=== PATIENT | female | born 1950 | race Two or more races ===

== ENCOUNTER 2019-12-07 07:47 | Outpatient (REF) | payer MEDICARE, SELFPAY ==
[2019-12-07 08:51] LABS: Anion Gap 13 (12-20); Blood Urea Nitrogen 19 mg/dL (9-16); Calcium 9.1 mg/dL (8.4-10.2); Carbon Dioxide 27 mmol/L (22-29); Chloride 106 mmol/L (96-108); Estimated Glomerular Filt Rate 35; Potassium 4.2 mmol/l (3.3-5.1); Sodium 142 mmol/L (135-145)
[2019-12-07 08:56] LABS: Creatinine Urine 202.74 mg/dL; Microalbum/Creatinine Ratio Ur 46.8 ug/mg cr
== END 2019-12-07 07:48 | disposition home or self-care (01) ==
LOC: HO.LAB 07:47
PROVIDERS: PCP Internal Medicine; Referring Provider Nurse Practitioner Gerontology; Visit Provider Internal Medicine Hypertension Specialist
DX: E11.21 Type 2 diabetes mellitus with diabetic nephropathy (principal); E11.22 Type 2 diabetes mellitus with diabetic chronic kidney disease; N18.9 Chronic kidney disease, unspecified
CPT/HCPCS: 80051; 82043; 82310; 82565; 84520

== ENCOUNTER 2019-12-10 15:21 | Outpatient (REF) | payer MEDICARE, SELFPAY | END 2019-12-10 15:22 | disposition home or self-care (01) | LOC: HO.LAB 15:21 | PROVIDERS: PCP Internal Medicine; Visit Provider Internal Medicine | DX: Z20.828 Contact with and (suspected) exposure to other viral communicable diseases (principal) | CPT/HCPCS: 87635 ==

== ENCOUNTER → 2020-01-07 13:09 | Outpatient (BNVA) | payer MEDICARE, SELFPAY | PROVIDERS: PCP Internal Medicine; Visit Provider Nurse Practitioner Gerontology | DX: E11.22 Type 2 diabetes mellitus with diabetic chronic kidney disease (principal); I12.9 Hypertensive chronic kidney disease with stage 1 through stage 4 chronic kidney disease, or unspecified chronic kidney disease; N18.4 Chronic kidney disease, stage 4 (severe); Z79.4 Long term (current) use of insulin; E78.5 Hyperlipidemia, unspecified; E66.09 Other obesity due to excess calories; Z68.33 Body mass index [BMI] 33.0-33.9, adult | CPT/HCPCS: 82947; 99212 ==

== ENCOUNTER → 2020-02-23 10:41 | Outpatient (BNVA) | payer MEDICARE, SELFPAY | PROVIDERS: PCP Internal Medicine; Visit Provider Nurse Practitioner Gerontology | DX: E11.22 Type 2 diabetes mellitus with diabetic chronic kidney disease (principal); I12.9 Hypertensive chronic kidney disease with stage 1 through stage 4 chronic kidney disease, or unspecified chronic kidney disease; N18.4 Chronic kidney disease, stage 4 (severe); Z79.4 Long term (current) use of insulin; E78.5 Hyperlipidemia, unspecified; E66.09 Other obesity due to excess calories; Z68.32 Body mass index [BMI] 32.0-32.9, adult | CPT/HCPCS: 82947; 99212 ==

== ENCOUNTER → 2020-03-10 13:19 | Outpatient (BNVA) | payer MEDICARE, SELFPAY | PROVIDERS: PCP Internal Medicine; Referring Provider Internal Medicine; Visit Provider Nurse Practitioner Gerontology | DX: E11.22 Type 2 diabetes mellitus with diabetic chronic kidney disease (principal); I12.9 Hypertensive chronic kidney disease with stage 1 through stage 4 chronic kidney disease, or unspecified chronic kidney disease; N18.4 Chronic kidney disease, stage 4 (severe); Z79.4 Long term (current) use of insulin; E78.5 Hyperlipidemia, unspecified; E66.09 Other obesity due to excess calories; Z68.33 Body mass index [BMI] 33.0-33.9, adult | CPT/HCPCS: Q3014 ==

== ENCOUNTER 2020-03-31 10:23 | Outpatient (REF) | payer MEDICARE, MEDICAID, SELFPAY ==
[2020-04-04 04:35] LABS: SARS COV2 IgG Negative (Negative)
== END 2020-03-31 10:24 | disposition home or self-care (01) ==
LOC: HO.LAB 10:23
PROVIDERS: PCP Internal Medicine; Visit Provider Internal Medicine
DX: Z01.84 Encounter for antibody response examination (principal)
CPT/HCPCS: 36415; 86769

== ENCOUNTER 2020-05-30 07:33 | Outpatient (REF) | payer MEDICARE, MEDICAID, SELFPAY ==
[2020-05-30 08:17] LABS: MANUAL DIFF FLAG NO
[2020-05-30 08:24] LABS: Basophils Percent Auto 0.5 % (0-2); Eosinophils Absolute Auto 0.2 X10*3/uL (0.0-0.4); Eosinophils Percent Auto 2.6 % (0-4); Hematocrit 33.8 % (37-47); Hemoglobin 10.7 g/dl (12.0-16.0); Imm Gran Abs Auto 0.01 X10*3/uL (0.00-0.03); Imm Gran Pct Auto 0.2 % (0.0-0.4); Lymphocytes Absolute Auto 2.6 X10*3/uL (1.2-4.9); Lymphocytes Percent Auto 42.5 % (20-40); Mean Corpuscular HGB Conc 31.7 g/dl (31.0-35.0); Mean Corpuscular Hemoglobin 28.1 pg (27.0-33.0); Mean Corpuscular Volume 88.7 fL (80-98); Mean Platelet Volume 9.9 fL (9.4-12.3); Monocytes Absolute Auto 0.8 X10*3/uL (0.1-1.2); Monocytes Percent Auto 12.3 % (2-11); Neutrophils Absolute Auto 2.6 X10*3/uL (2.0-8.3); Neutrophils Percent Auto 41.9 % (45-73); Platelet Count 225 X10*3/uL (160-400); Red Blood Count 3.81 X10*6/uL (4.20-5.50); Red Cell Distribution Width 13.1 % (11.0-16.0); White Blood Count 6.1 X10*3/uL (4.8-10.8)
[2020-05-30 08:36] LABS: Glucose Urine UA NEG (NEG); Leukocyte Esterase Urine NEG (NEG); Nitrite Urine NEG (NEG); PH 6.5 (5.0-8.0); Specific Gravity - Urine 1.025 (1.005-1.025); Urine Blood TRACE (NEG); Urine Ketones NEG (NEG); Urine Protein 1+ MG/DL (NEG-TRACE)
[2020-05-30 08:39] LABS: Appearance Urine CLEAR; Color Urine YELLOW
[2020-05-30 09:07] LABS: Anion Gap 11 (12-20); Blood Urea Nitrogen 17 mg/dL (9-16); Calcium 8.9 mg/dL (8.4-10.2); Carbon Dioxide 27 mmol/L (22-29); Chloride 107 mmol/L (96-108); Estimated Glomerular Filt Rate 28; Potassium 4.5 mmol/L (3.3-5.1); Sodium 140 mmol/L (135-145)
[2020-05-30 09:10] LABS: Alanine Aminotransferase 23 U/L (0-31); Alkaline Phosphatase 119 U/L (39-117); Anion Gap 10 (12-20); Aspartate Amino Transferase 34 U/L (5-31); Bilirubin Total 0.4 mg/dL (0.0-1.0); Blood Urea Nitrogen 17 mg/dL (9-16); Calcium 8.9 mg/dL (8.4-10.2); Carbon Dioxide 27 mmol/L (22-29); Chloride 108 mmol/L (96-108); Cholesterol 109 mg/dL; Estimated Glomerular Filt Rate 26; Glucose Fasting 196 mg/dL (60-99); HDL Cholesterol 45 mg/dL; LDL Cholesterol Calculated 31 mg/dl; Potassium 4.6 mmol/L (3.3-5.1); Sodium 140 mmol/L (135-145); Total Protein 7.3 g/dL (6.5-8.0); Triglycerides 167 mg/dL
[2020-05-30 09:11] LABS: Creatinine Urine 126.38 mg/dL; Protein/Creatinine Ratio, Ur 0.44 (<0.2); Total Protein Urine Random 56 mg/dL (<12)
[2020-05-30 09:12] LABS: Creatinine Urine 124.35 mg/dL; Microalbum/Creatinine Ratio Ur 77.2 ug/mg cr
[2020-05-30 09:36] LABS: Bacteria Urine TRACE /LPF; Mucus Urine 1+ /LPF; Squamous Epithelial Cell Urine 2+ /LPF; WBC Urine 0-2 /HPF (0-4)
== END 2020-05-30 07:34 | disposition home or self-care (01) ==
LOC: HO.LAB 07:33
PROVIDERS: Absent Provider Internal Medicine Hypertension Specialist; PCP Internal Medicine; Visit Provider Internal Medicine
DX: E11.22 Type 2 diabetes mellitus with diabetic chronic kidney disease (principal); E11.21 Type 2 diabetes mellitus with diabetic nephropathy; N18.4 Chronic kidney disease, stage 4 (severe); N17.0 Acute kidney failure with tubular necrosis; E78.5 Hyperlipidemia, unspecified; D64.9 Anemia, unspecified; J30.9 Allergic rhinitis, unspecified; E78.00 Pure hypercholesterolemia, unspecified; R80.9 Proteinuria, unspecified; M19.90 Unspecified osteoarthritis, unspecified site; E55.9 Vitamin D deficiency, unspecified; K21.9 Gastro-esophageal reflux disease without esophagitis; Z79.4 Long term (current) use of insulin
CPT/HCPCS: 36415; 80051; 80053; 80061; 81001; 82043; 82310; 82565; 84156; 84520; 85025

== ENCOUNTER → 2020-06-03 08:57 | Outpatient (BNVA) | payer MEDICARE, MEDICAID, SELFPAY | PROVIDERS: PCP Internal Medicine; Visit Provider Nurse Practitioner Gerontology | DX: E11.22 Type 2 diabetes mellitus with diabetic chronic kidney disease (principal); I12.9 Hypertensive chronic kidney disease with stage 1 through stage 4 chronic kidney disease, or unspecified chronic kidney disease; N18.4 Chronic kidney disease, stage 4 (severe); Z79.4 Long term (current) use of insulin; E78.5 Hyperlipidemia, unspecified; E66.09 Other obesity due to excess calories; Z68.33 Body mass index [BMI] 33.0-33.9, adult | CPT/HCPCS: 82947; 99212 ==

== ENCOUNTER 2020-06-28 08:29 | Outpatient (REF) | payer MEDICARE, MEDICAID, SELFPAY ==
--- NOTE | ~2020-06-28 | MM_ITS ---
EXAMINATION: MM SCREENING DIGITAL BREAST TOMOSYNTHESIS, BILATERAL CLINICAL INFORMATION: Screening. Asymptomatic. COVID vaccine both doses left arm, most recent 05/31/2020. The lifetime risk of breast cancer based on the Tyrer-Cuzick Model is 4%. COMPARISON: Mammography: 02/04/2019, 01/29/2018, 01/08/2017 TECHNIQUE: Digital breast tomosynthesis is performed in both the craniocaudal and mediolateral oblique views along with computer-aided detection (CAD). Synthesized 2D images are generated from the tomosynthesis. FINDINGS: There are scattered areas of fibroglandular density (ACR BI-RADS breast composition Category b). The breast parenchymal pattern is unremarkable. There is no developing density or interval mass or architectural abnormality. No duct ectasia. The skin contours are smooth. There is no coarsening of the Mahesh's ligaments. The left MLO view shows 2 prominent left axillary nodes, increased from prior exams, likely reactive from COVID vaccination. Patient will be recalled in 4-8 weeks for follow-up imaging. MM/MM tomosynthesis screening BI IMPRESSION: 1. Left: 2 enlarged left axillary nodes, possibly reactive from recent vaccination. 2. Right: No mammographic evidence of malignancy. ASSESSMENT: BI-RADS 0: Incomplete - Need Additional Imaging Evaluation RECOMMENDATION: 1. Additional views of the left breast in 4-8 weeks (MLO). 2. Targeted ultrasound if warranted after review of the additional views. 3. Radiology department staff will contact the patient for additional imaging. This patient's information was entered into a reminder system with a target due date for their next mammogram.
== END 2020-06-28 08:30 | disposition home or self-care (01) ==
LOC: HO.MAMMO 08:29
PROVIDERS: Visit Provider Internal Medicine
DX: Z12.31 Encounter for screening mammogram for malignant neoplasm of breast (principal)
CPT/HCPCS: 77063; 77067

== ENCOUNTER 2020-08-09 12:18 | Outpatient (REF) | payer MEDICARE, MEDICAID, SELFPAY ==
--- NOTE | ~2020-08-09 | MM_ITS ---
EXAMINATION: MM DIAGNOSTIC DIGITAL BREAST TOMOSYNTHESIS, LEFT US DIAGNOSTIC ULTRASOUND BREAST, LEFT CLINICAL INFORMATION: Recall from screening for prominent left axillary nodes, likely reactive change from recent COVID vaccination (05/31/2020). COMPARISON: Mammography: 06/28/2020, 02/04/2019, 01/29/2018 TECHNIQUE: Digital breast tomosynthesis is performed. 2D images are generated from the tomosynthesis. The following views are obtained: MLO Ultrasound left axilla is performed using grayscale imaging and color Doppler without and with harmonics. FINDINGS: The breasts are almost entirely fatty (ACR BI-RADS breast composition Category a). The left axillary nodes are slightly decreased in size since the recent screening exam. Ultrasound demonstrates 2 axillary nodes with normal nicki architecture and normal color flow pattern. Cortical thickness is within limits of normal. No contours are smooth. No cystic changes or spiculation. Results are discussed with the patient at time of visit. Patient notes left axillary fullness within base of the recent vaccination. The mammographic and ultrasound findings are consistent with recent reactive changes from the fact summation. No suspicious lymphadenopathy. MM/MM tomosynthesis added views L IMPRESSION: Left axillary nodes decreased since recent screening. Normal ultrasound architecture. No suspicious lymphadenopathy. ASSESSMENT: BI-RADS 2: Benign RECOMMENDATION: Routine annual mammography screening. This patient's information was entered into a reminder system with a target due date for their next mammogram.
== END 2020-08-09 12:19 | disposition home or self-care (01) ==
LOC: HO.MAMMO 12:18
PROVIDERS: Visit Provider Internal Medicine
DX: R59.9 Enlarged lymph nodes, unspecified (principal)
CPT/HCPCS: 76642; 77061; 77065

== ENCOUNTER → 2020-09-02 08:54 | Outpatient (BNVA) | payer MEDICARE, MEDICAID, SELFPAY | PROVIDERS: PCP Internal Medicine; Visit Provider Nurse Practitioner Gerontology | DX: E11.22 Type 2 diabetes mellitus with diabetic chronic kidney disease (principal); I12.9 Hypertensive chronic kidney disease with stage 1 through stage 4 chronic kidney disease, or unspecified chronic kidney disease; N18.4 Chronic kidney disease, stage 4 (severe); E78.5 Hyperlipidemia, unspecified; E66.09 Other obesity due to excess calories; Z79.4 Long term (current) use of insulin; Z68.33 Body mass index [BMI] 33.0-33.9, adult | CPT/HCPCS: 82947; 83036; 99212 ==

== ENCOUNTER 2020-11-17 07:32 | Outpatient (REF) | payer MEDICARE, MEDICAID, SELFPAY ==
[2020-11-17 08:11] LABS: MANUAL DIFF FLAG NO
[2020-11-17 08:21] LABS: Basophils Percent Auto 0.5 % (0-2); Eosinophils Absolute Auto 0.2 X10*3/uL (0.0-0.4); Eosinophils Percent Auto 3.5 % (0-4); Hematocrit 33.4 % (37-47); Hemoglobin 10.4 g/dl (12.0-16.0); Imm Gran Abs Auto 0.01 X10*3/uL (0.00-0.03); Imm Gran Pct Auto 0.2 % (0.0-0.4); Lymphocytes Absolute Auto 2.4 X10*3/uL (1.2-4.9); Lymphocytes Percent Auto 41.5 % (20-40); Mean Corpuscular HGB Conc 31.1 g/dl (31.0-35.0); Mean Corpuscular Hemoglobin 27.9 pg (27.0-33.0); Mean Corpuscular Volume 89.5 fL (80-98); Mean Platelet Volume 10.5 fL (9.4-12.3); Monocytes Absolute Auto 0.6 X10*3/uL (0.1-1.2); Neutrophils Absolute Auto 2.5 X10*3/uL (2.0-8.3); Neutrophils Percent Auto 43.3 % (45-73); Platelet Count 207 X10*3/uL (160-400); Red Blood Count 3.73 X10*6/uL (4.20-5.50); Red Cell Distribution Width 13.8 % (11.0-16.0); White Blood Count 5.7 X10*3/uL (4.8-10.8)
[2020-11-17 08:37] LABS: Creatinine Urine 190.86 mg/dL; Microalbum/Creatinine Ratio Ur 59.2 ug/mg cr
[2020-11-17 08:44] LABS: Alanine Aminotransferase 23 U/L (0-31); Albumin Level 4.1 g/dL (3.5-5.0); Alkaline Phosphatase 94 U/L (39-117); Anion Gap 12 (12-20); Aspartate Amino Transferase 62 U/L (5-31); Bilirubin Total 0.6 mg/dL (0.0-1.0); Blood Urea Nitrogen 17 mg/dL (9-16); Calcium 9.3 mg/dL (8.4-10.2); Carbon Dioxide 24 mmol/L (22-29); Chloride 108 mmol/L (96-108); Cholesterol 103 mg/dL; Estimated Glomerular Filt Rate 26; Glucose Fasting 138 mg/dL (60-99); HDL Cholesterol 38 mg/dL; LDL Cholesterol Calculated 37 mg/dl; Potassium 4.3 mmol/L (3.3-5.1); Sodium 140 mmol/L (135-145); Total Protein 7.5 g/dL (6.5-8.0); Triglycerides 140 mg/dL
== END 2020-11-17 07:33 | disposition home or self-care (01) ==
LOC: HO.LAB 07:32
PROVIDERS: Absent Provider Internal Medicine Hypertension Specialist; PCP Internal Medicine; Visit Provider Internal Medicine
DX: N18.4 Chronic kidney disease, stage 4 (severe) (principal); E11.22 Type 2 diabetes mellitus with diabetic chronic kidney disease; E78.5 Hyperlipidemia, unspecified; Z79.4 Long term (current) use of insulin
CPT/HCPCS: 36415; 80053; 80061; 82043; 85025

== ENCOUNTER 2020-11-21 09:04 | Outpatient (REF) | payer MEDICARE, SELFPAY ==
--- NOTE | ~2020-11-21 | XR_ITS ---
EXAMINATION: XR SHOULDER, RIGHT CLINICAL INFORMATION: Pain. COMPARISON: Radiograph of the right shoulder dated from 06/17/2012. TECHNIQUE: Four views of the right shoulder. FINDINGS: No acute fractures or malalignment. Mild osteoarthritis of the glenohumeral joint and acromioclavicular joint. Chronic deformity in the proximal aspect of the humeral shaft, lateral surface. Visualized clavicle and ribs are unremarkable. Normal appearance of the soft tissues. XR/XR shoulder RT min 2V IMPRESSION: No acute fractures or malalignment. Degenerative osteoarthritis of the glenohumeral and acromioclavicular joints.
== END 2020-11-21 09:05 | disposition home or self-care (01) ==
LOC: HO.XRAY 09:04
PROVIDERS: PCP Internal Medicine; Visit Provider Internal Medicine
DX: M25.511 Pain in right shoulder (principal)
CPT/HCPCS: 73030

== ENCOUNTER → 2020-12-26 12:29 | Outpatient (BNVA) | payer MEDICARE, SELFPAY | PROVIDERS: PCP Internal Medicine; Visit Provider Nurse Practitioner Gerontology | DX: E11.22 Type 2 diabetes mellitus with diabetic chronic kidney disease (principal); I12.9 Hypertensive chronic kidney disease with stage 1 through stage 4 chronic kidney disease, or unspecified chronic kidney disease; N18.4 Chronic kidney disease, stage 4 (severe); E78.5 Hyperlipidemia, unspecified; E66.09 Other obesity due to excess calories; Z79.4 Long term (current) use of insulin; Z68.33 Body mass index [BMI] 33.0-33.9, adult | CPT/HCPCS: 82947; 83036; 99212 ==

== ENCOUNTER 2021-03-23 07:53 | Outpatient (REF) | payer MEDICARE, SELFPAY ==
[2021-03-23 08:13] LABS: MANUAL DIFF FLAG NO
[2021-03-23 08:23] LABS: Basophils Percent Auto 0.5 % (0-2); Eosinophils Absolute Auto 0.2 X10*3/uL (0.0-0.4); Eosinophils Percent Auto 2.7 % (0-4); Hematocrit 34.3 % (37.0-47.0); Hemoglobin 10.9 g/dl (12.0-16.0); Imm Gran Abs Auto 0.01 X10*3/uL (0.00-0.03); Imm Gran Pct Auto 0.2 % (0.0-0.4); Lymphocytes Absolute Auto 2.8 X10*3/uL (1.2-4.9); Lymphocytes Percent Auto 47.5 % (20-40); Mean Corpuscular HGB Conc 31.8 g/dl (31.0-35.0); Mean Corpuscular Hemoglobin 28.2 pg (27.0-33.0); Mean Corpuscular Volume 88.6 fL (80.0-98.0); Mean Platelet Volume 10.1 fL (9.4-12.3); Monocytes Absolute Auto 0.6 X10*3/uL (0.1-1.2); Monocytes Percent Auto 10.6 % (2-11); Neutrophils Absolute Auto 2.2 x10*3/uL (2.0-8.3); Neutrophils Percent Auto 38.5 % (45-73); Platelet Count 221 X10*3/uL (160-400); Red Blood Count 3.87 X10*6/uL (4.20-5.50); Red Cell Distribution Width 13.4 % (11.0-16.0); White Blood Count 5.8 X10*3/uL (4.8-10.8)
[2021-03-23 08:43] LABS: Alanine Aminotransferase 30 U/L (0-31); Albumin Level 4.1 g/dL (3.5-5.0); Alkaline Phosphatase 104 U/L (39-117); Anion Gap 13 (12-20); Aspartate Amino Transferase 54 U/L (5-31); Bilirubin Total 0.6 mg/dL (0.0-1.0); Blood Urea Nitrogen 16 mg/dL (9-16); Calcium 9.6 mg/dL (8.4-10.2); Carbon Dioxide 25 mmol/L (22-29); Chloride 106 mmol/L (96-108); Cholesterol 112 mg/dL; Estimated Glomerular Filt Rate 30; Glucose Fasting 146 mg/dL (60-99); HDL Cholesterol 43 mg/dL; LDL Cholesterol Calculated 44 mg/dl; Potassium 4.3 mmol/L (3.3-5.1); Sodium 140 mmol/L (135-145); Total Protein 7.7 g/dL (6.5-8.0); Triglycerides 129 mg/dL
[2021-03-23 08:45] LABS: Iron 53 mcg/dL (30-160); Percent Iron Saturation 13 % (15-50); Total Iron Binding Capacity 416 mcg/dL (228-428); Unsaturated Iron Binding 363 ug/dL
[2021-03-23 09:07] LABS: Creatinine Urine 218.56 mg/dL; Microalbum/Creatinine Ratio Ur 41.6 ug/mg cr
[2021-03-24 14:07] LABS: Calcium (PTHI) 9.6 mg/dL (8.6-10.4); PTHI 95 pg/mL (14-64)
[2021-03-28 17:07] LABS: Vitamin D 25-OH, D2 <4 ng/mL; Vitamin D 25-OH, D3 13 ng/mL; Vitamin D 25-OH, Total 13 ng/mL (30-100)
== END 2021-03-23 07:54 | disposition home or self-care (01) ==
LOC: HO.LAB 07:53
PROVIDERS: Absent Provider Internal Medicine; PCP Internal Medicine; Visit Provider Internal Medicine Hypertension Specialist
DX: E78.5 Hyperlipidemia, unspecified (principal); E55.9 Vitamin D deficiency, unspecified; Z79.4 Long term (current) use of insulin; N18.4 Chronic kidney disease, stage 4 (severe); E11.22 Type 2 diabetes mellitus with diabetic chronic kidney disease
CPT/HCPCS: 36415; 80053; 80061; 82043; 82306; 83540; 83970; 85025

== ENCOUNTER → 2021-04-24 13:15 | Outpatient (BNVA) | payer MEDICARE, SELFPAY | PROVIDERS: PCP Internal Medicine; Visit Provider Nurse Practitioner Gerontology | DX: E11.22 Type 2 diabetes mellitus with diabetic chronic kidney disease (principal); I12.9 Hypertensive chronic kidney disease with stage 1 through stage 4 chronic kidney disease, or unspecified chronic kidney disease; N18.32 Chronic kidney disease, stage 3b; Z79.4 Long term (current) use of insulin; E78.5 Hyperlipidemia, unspecified; E66.09 Other obesity due to excess calories; Z68.32 Body mass index [BMI] 32.0-32.9, adult | CPT/HCPCS: 82947; 83036; 99212 ==

== ENCOUNTER → 2021-07-18 12:54 | Outpatient (BNVA) | payer MEDICARE, SELFPAY | PROVIDERS: PCP Internal Medicine; Visit Provider Nurse Practitioner Gerontology | DX: E11.22 Type 2 diabetes mellitus with diabetic chronic kidney disease (principal); I12.9 Hypertensive chronic kidney disease with stage 1 through stage 4 chronic kidney disease, or unspecified chronic kidney disease; N18.32 Chronic kidney disease, stage 3b; E78.5 Hyperlipidemia, unspecified; E66.09 Other obesity due to excess calories; Z79.4 Long term (current) use of insulin; Z68.31 Body mass index [BMI] 31.0-31.9, adult | CPT/HCPCS: 82947; 83036; 99212 ==

== ENCOUNTER 2021-08-02 07:17 | Outpatient (REF) | payer MEDICARE, SELFPAY ==
[2021-08-02 07:35] LABS: MANUAL DIFF FLAG NO
[2021-08-02 07:43] LABS: Basophils Percent Auto 0.3 % (0-2); Eosinophils Absolute Auto 0.2 X10*3/uL (0.0-0.4); Eosinophils Percent Auto 2.5 % (0-4); Hematocrit 31.9 % (37.0-47.0); Hemoglobin 10.2 g/dl (12.0-16.0); Imm Gran Abs Auto 0.01 X10*3/uL (0.00-0.03); Imm Gran Pct Auto 0.2 % (0.0-0.4); Lymphocytes Absolute Auto 2.9 X10*3/uL (1.2-4.9); Lymphocytes Percent Auto 45.3 % (20-40); Mean Corpuscular Hemoglobin 28.3 pg (27.0-33.0); Mean Corpuscular Volume 88.6 fL (80.0-98.0); Mean Platelet Volume 9.6 fL (9.4-12.3); Monocytes Absolute Auto 0.7 X10*3/uL (0.1-1.2); Monocytes Percent Auto 10.2 % (2-11); Neutrophils Absolute Auto 2.7 x10*3/uL (2.0-8.3); Neutrophils Percent Auto 41.5 % (45-73); Platelet Count 220 X10*3/uL (160-400); Red Cell Distribution Width 13.4 % (11.0-16.0); White Blood Count 6.4 X10*3/uL (4.8-10.8)
[2021-08-02 07:55] LABS: Estimated Average Glucose 192 mg/dL; Hemoglobin A1c % 8.3 %
[2021-08-02 08:11] LABS: Alanine Aminotransferase 23 U/L (0-31); Alkaline Phosphatase 88 U/L (39-117); Anion Gap 11 (12-20); Aspartate Amino Transferase 38 U/L (5-31); Bilirubin Total 0.6 mg/dL (0.0-1.0); Blood Urea Nitrogen 21 mg/dL (9-16); Calcium 9.2 mg/dL (8.4-10.2); Carbon Dioxide 26 mmol/L (22-29); Chloride 109 mmol/L (96-108); Cholesterol 101 mg/dL; Estimated Glomerular Filt Rate 28; Glucose Fasting 154 mg/dL (60-99); HDL Cholesterol 40 mg/dL; Iron 58 mcg/dL (30-160); LDL Cholesterol Calculated 35 mg/dl; Percent Iron Saturation 14 % (15-50); Potassium 4.5 mmol/L (3.3-5.1); Sodium 141 mmol/L (135-145); Total Iron Binding Capacity 414 mcg/dL (228-428); Total Protein 7.4 g/dL (6.5-8.0); Triglycerides 133 mg/dL; Unsaturated Iron Binding 356 ug/dL
[2021-08-02 10:11] LABS: Creatinine Urine 300.29 mg/dL; Microalbum/Creatinine Ratio Ur 25.3 ug/mg cr
[2021-08-07 13:17] LABS: Vitamin D 25-OH, D2 65 ng/mL; Vitamin D 25-OH, D3 6 ng/mL; Vitamin D 25-OH, Total 71 ng/mL (30-100)
== END 2021-08-02 07:18 | disposition home or self-care (01) ==
LOC: HO.LAB 07:17
PROVIDERS: PCP Internal Medicine; Visit Provider Internal Medicine
DX: E11.22 Type 2 diabetes mellitus with diabetic chronic kidney disease (principal); E11.40 Type 2 diabetes mellitus with diabetic neuropathy, unspecified; N18.4 Chronic kidney disease, stage 4 (severe); E78.5 Hyperlipidemia, unspecified; E55.9 Vitamin D deficiency, unspecified; D64.9 Anemia, unspecified; Z79.4 Long term (current) use of insulin
CPT/HCPCS: 36415; 80053; 80061; 82043; 82306; 83036; 83540; 85025

== ENCOUNTER 2021-08-09 12:13 | Outpatient (REF) | payer MEDICARE, SELFPAY ==
--- NOTE | ~2021-08-09 | MM_ITS ---
EXAMINATION: MM SCREENING DIGITAL BREAST TOMOSYNTHESIS, BILATERAL CLINICAL INFORMATION: Screening. Asymptomatic. The lifetime risk of breast cancer based on the Tyrer-Cuzick Model is 4%. COMPARISON: Mammography: 08/09/2020, 06/28/2020, 02/04/2019; left axillary ultrasound 08/09/2020. TECHNIQUE: Digital breast tomosynthesis is performed in both the craniocaudal and mediolateral oblique views along with computer-aided detection (CAD). Synthesized 2D images are generated from the tomosynthesis. FINDINGS: There are scattered areas of fibroglandular density (ACR BI-RADS breast composition Category b). Parenchymal pattern is similar to prior studies. No significant mass or architectural abnormality or developing density. No abnormal calcifications. The skin contours are smooth. The axillary nodes are unremarkable. MM/MM tomosynthesis screening BI IMPRESSION: -No mammographic evidence of malignancy. ASSESSMENT: BI-RADS 1: Negative RECOMMENDATION: Routine annual mammography screening. This patient's information was entered into a reminder system with a target due date for their next mammogram.
== END 2021-08-09 12:14 | disposition home or self-care (01) ==
LOC: HO.MAMMO 12:13
PROVIDERS: Visit Provider Internal Medicine
DX: Z12.31 Encounter for screening mammogram for malignant neoplasm of breast (principal)
CPT/HCPCS: 77063; 77067

== ENCOUNTER → 2021-09-27 12:40 | Outpatient (REF) | payer OTHER, SELFPAY ==
--- NOTE | 2021-09-27 13:10 | CA_ITS ---
Transthoracic Echocardiogram Patient (Last, First, Middle): Estrella Adams, Gender: Female Date of : 1950 Age: 71 Procedure Date: 09/27/2021 Procedure Type: Transthoracic Echocardiogram Location: OP Height: 154.94 cm Weight: 76.66 kg BSA: 1.76 m2 Heart Rate: 72 bpm BP: 138 / 62 mmHg Rod Pointer: NICHOLE Referring MD: Larisa Mari MD Acid Mixer: Alexsander Sheldon MD Symptoms: R01.1 - Cardiac murmur, unspecified Study Quality: Adequate ECG Rhythm: Sinus Conclusions: - 1. Normal LV systolic function with grade 1 diastolic dysfunction 2. Mild mitral regurgitation 3. Normal RV systolic pressure 4. No pericardial effusion Findings Left Ventricle Normal left ventricular size, thickness, and systolic function. The visually estimated ejection fraction is between 60-65%. Spectral Doppler is indicative of an impaired relaxation filling pattern. E/E prime ratio is <8, consistent with normal filling pressures. Evidence suggests grade I (mild) diastolic dysfunction. Right Ventricle Normal right ventricular cavity size and systolic function. Atria Both atria are normal in size. There is lipomatous hypertrophy of the interatrial septum. There is no evidence of interatrial shunt. Aortic Valve Normal aortic valve structure and function. There is no aortic valve stenosis. There is no aortic valve regurgitation. Mitral Valve There is mild anterior and posterior mitral leaflet thickening. There is mild mitral valve regurgitation. There is no mitral valve stenosis. Pulmonic Valve The pulmonic valve is likely normal. Tricuspid Valve Normal tricuspid valve structure. There is trace tricuspid valve regurgitation. The right ventricular systolic pressure is normal. The right ventricular systolic pressure is 22 mmHg. Normal right atrial pressure. There is no evidence of pulmonary hypertension. Great Vessels All visible segments of the aorta are normal in size. The pulmonary artery was not well visualized. Venous The inferior vena cava is normal in size and collapses greater than 50% with inspiration. Pericardium/Pleural There is no evidence of pericardial effusion. Prior Study Comparison No significant change compared to prior study dated: 10/11/2017. Measurements 2D Linear Measurements IVSd: 0.91 0.6-0.9/0.6-1.0 cm LVIDd: 4.53 3.9-5.3/4.2-5.9 cm LVIDd Index: 2.57 2.4-3.2/2.2-3.1 cm/m2 LVIDs: 2.60 2.0-3.6 cm LVPWd: 0.85 0.7-1.1 cm LA Diam: 3.80 2.7-3.8/3.0-4.0 cm LAIDs Index: 2.16 1.5-2.3 cm/m2 LV Mass: 162.01 67-162/88-224 g LV Mass Index: 92.05 43-95/49-115 g/m2 LVOT Diam: 1.70 3.0+(-)1.3 cm 2D Systolic Function EF 4C: 71.00 >55% Mitral Valve MV Pk E: 0.66 MV PK A: 0.73 MV Decel Time: 244.00 E/A: 0.90 E'Lateral: 8.27 E'Medial: 7.07 E/E' Med: 9.30 E/E' Lat: 8.00 PHT: 71.00 MVA PHT: 3.10 Decel Union: 2.71 Aortic Valve AoV Pk Kristopher: 1.36 AoV Mn Kristopher: 0.99 AoV VTI: 0.31 AoV Pk Grad: 7.00 Aov Mn Grad: 4.00 MC Cont.VTI: 1.57 LVOT LVOT Pk Kristopher: 1.03 LVOT Mn Kristopher: 0.66 LVOT VTI: 0.22 LVOT Pk Grad: 4.00 LVOT Mn Grad: 2.00 LVOT Diam: 1.70 LVOT Area: 2.27 Diastolic Function MV Pk E: 0.66 MV Pk A: 0.73 E/A: 0.90 E'Medial: 7.07 E/E' Med: 9.30 E' Laterial: 8.27 E/E' Lat: 8.00 Right Ventricle TAPSE (mm): 20.70 TVS' Kristopher: 11.60 Tricuspid Valve TR Pk Kristopher: 2.17 TR Pk Grad: 19.00 RA Press: 3.00 RVSP: 22.00 Great Vessels Aorta Sinus of Valsalva: 2.80 2.0-3.5 cm Ao Asc: 3.00 2.1-3.4 cm Pulmonary Veins Pulm Vein S/D 1.80 Pulmonary Valve PV Pk Kristopher: 1.14 Peak PV Grad: 5.00 Updated in Other Vendor System with Status of Final Alexsander Sheldon MD electronically signed on 09/28/2021 5:05:03 PM with status of Final
== END ==
LOC: HO.CARD 12:40
PROVIDERS: PCP Internal Medicine; Visit Provider Internal Medicine
DX: R01.1 Cardiac murmur, unspecified (principal)
CPT/HCPCS: 93306

== ENCOUNTER 2021-11-03 07:39 | Outpatient (REF) | payer OTHER, SELFPAY ==
[2021-11-03 09:29] LABS: Creatinine Urine 133.74 mg/dL; Protein/Creatinine Ratio, Ur 0.29 (<0.2); Total Protein Urine Random 39 mg/dL (<12)
[2021-11-03 09:41] LABS: Anion Gap 14 (12-20); Blood Urea Nitrogen 17 mg/dL (9-16); Calcium 9.3 mg/dL (8.4-10.2); Carbon Dioxide 25 mmol/L (22-29); Chloride 106 mmol/L (96-108); Estimated Glomerular Filt Rate 27; Potassium 4.4 mmol/L (3.3-5.1); Sodium 141 mmol/L (135-145)
== END 2021-11-03 07:40 | disposition home or self-care (01) ==
LOC: HO.LAB 07:39
PROVIDERS: PCP Internal Medicine; Visit Provider Internal Medicine Hypertension Specialist
DX: N18.32 Chronic kidney disease, stage 3b (principal)
CPT/HCPCS: 36415; 80051; 82310; 82565; 84156; 84520

== ENCOUNTER 2021-11-21 07:44 | Outpatient (REF) | payer OTHER, SELFPAY ==
[2021-11-21 09:11] LABS: Alanine Aminotransferase 29 U/L (0-31); Albumin Level 4.2 g/dL (3.5-5.0); Alkaline Phosphatase 99 U/L (39-117); Anion Gap 15 (12-20); Aspartate Amino Transferase 50 U/L (5-31); Bilirubin Total 0.5 mg/dL (0.0-1.0); Blood Urea Nitrogen 20 mg/dL (9-16); Calcium 9.3 mg/dL (8.4-10.2); Carbon Dioxide 27 mmol/L (22-29); Chloride 106 mmol/L (96-108); Cholesterol 107 mg/dL; Estimated Glomerular Filt Rate 28; Glucose Fasting 201 mg/dL (60-99); HDL Cholesterol 41 mg/dL; LDL Cholesterol Calculated 32 mg/dl; Potassium 4.6 mmol/L (3.3-5.1); Sodium 143 mmol/L (135-145); Total Protein 7.6 g/dL (6.5-8.0); Triglycerides 172 mg/dL
[2021-11-21 09:24] LABS: Creatinine Urine 187.98 mg/dL; Microalbum/Creatinine Ratio Ur 52.1 ug/mg cr
== END 2021-11-21 07:45 | disposition home or self-care (01) ==
LOC: HO.LAB 07:44
PROVIDERS: PCP Internal Medicine; Visit Provider Internal Medicine
DX: E11.22 Type 2 diabetes mellitus with diabetic chronic kidney disease (principal); N18.4 Chronic kidney disease, stage 4 (severe); E78.5 Hyperlipidemia, unspecified; E55.9 Vitamin D deficiency, unspecified; Z79.4 Long term (current) use of insulin
CPT/HCPCS: 36415; 80053; 80061; 82043; 82306

== ENCOUNTER 2022-07-26 06:49 | Outpatient (REF) | payer OTHER, SELFPAY ==
[2022-07-26 06:58] LABS: MANUAL DIFF FLAG NO
[2022-07-26 07:35] LABS: Basophils Percent Auto 0.3 % (0-2); Eosinophils Absolute Auto 0.1 X10*3/uL (0.0-0.4); Eosinophils Percent Auto 2.4 % (0-4); Hematocrit 32.6 % (37.0-47.0); Hemoglobin 10.3 g/dl (12.0-16.0); Imm Gran Abs Auto 0.04 X10*3/uL (0.00-0.03); Imm Gran Pct Auto 0.7 % (0.0-0.4); Lymphocytes Absolute Auto 2.6 X10*3/uL (1.2-4.9); Lymphocytes Percent Auto 44.4 % (20-40); Mean Corpuscular HGB Conc 31.6 g/dl (31.0-35.0); Mean Corpuscular Hemoglobin 28.4 pg (27.0-33.0); Mean Corpuscular Volume 89.8 fL (80.0-98.0); Mean Platelet Volume 10.1 fL (9.4-12.3); Monocytes Absolute Auto 0.6 X10*3/uL (0.1-1.2); Monocytes Percent Auto 10.6 % (2-11); Neutrophils Absolute Auto 2.5 x10*3/uL (2.0-8.3); Neutrophils Percent Auto 41.6 % (45-73); Platelet Count 217 X10*3/uL (160-400); Red Blood Count 3.63 X10*6/uL (4.20-5.50); Red Cell Distribution Width 13.2 % (11.0-16.0); White Blood Count 5.9 X10*3/uL (4.8-10.8)
[2022-07-26 08:56] LABS: Alanine Aminotransferase 24 U/L (0-31); Alkaline Phosphatase 98 U/L (39-117); Anion Gap 12 (12-20); Aspartate Amino Transferase 35 U/L (5-31); Bilirubin Total 0.6 mg/dL (0.0-1.0); Blood Urea Nitrogen 16 mg/dL (9-16); Calcium 9.5 mg/dL (8.4-10.2); Carbon Dioxide 23 mmol/L (22-29); Chloride 110 mmol/L (96-108); Cholesterol 111 mg/dL; Estimated Glomerular Filt Rate 38; Glucose Fasting 146 mg/dL (60-99); HDL Cholesterol 39 mg/dL; Iron 54 mcg/dL (30-160); LDL Cholesterol Calculated 42 mg/dl; Percent Iron Saturation 16 % (15-50); Potassium 4.3 mmol/L (3.3-5.1); Sodium 141 mmol/L (135-145); Total Iron Binding Capacity 342 mcg/dL (228-428); Total Protein 7.2 g/dL (6.5-8.0); Triglycerides 152 mg/dL; Unsaturated Iron Binding 288 ug/dL
[2022-07-26 08:59] LABS: Creatinine Urine 176.75 mg/dL; Microalbum/Creatinine Ratio Ur 18.6 ug/mg cr
[2022-07-26 09:27] LABS: Folate 15.8 ng/mL (> or = 4.0); Vitamin B12 249 pg/mL (200-900); Vitamin D 25-OH Total 26.8 ng/mL (>30)
== END 2022-07-26 06:50 | disposition home or self-care (01) ==
LOC: HO.LAB 06:49
PROVIDERS: PCP Internal Medicine; Visit Provider Internal Medicine
DX: E11.22 Type 2 diabetes mellitus with diabetic chronic kidney disease (principal); E55.9 Vitamin D deficiency, unspecified; D64.9 Anemia, unspecified; E78.5 Hyperlipidemia, unspecified; E53.8 Deficiency of other specified B group vitamins
CPT/HCPCS: 36415; 80053; 80061; 82043; 82306; 82607; 82746; 83540; 85025

== ENCOUNTER 2022-08-10 13:19 | Outpatient (REF) | payer OTHER, SELFPAY ==
--- NOTE | ~2022-08-10 | MM_ITS ---
EXAMINATION: MM SCREENING DIGITAL BREAST TOMOSYNTHESIS, BILATERAL CLINICAL INFORMATION: Screening. Asymptomatic. The lifetime risk of breast cancer based on the Tyrer-Cuzick Model is 3%. COMPARISON: Mammography: 08/09/2021, 08/09/2020, 06/28/2020, 02/04/2019; left breast ultrasound 08/09/2020 TECHNIQUE: Digital breast tomosynthesis is performed in both the craniocaudal and mediolateral oblique views along with computer-aided detection (CAD). Synthesized 2D images are generated from the tomosynthesis. FINDINGS: There are scattered areas of fibroglandular density (ACR BI-RADS breast composition Category b). There are no significant masses, abnormal calcifications, or other abnormalities. There is small smooth oval nodule anterior medial left breast similar to prior exam. No architectural abnormality. The axilla and skin contours are unremarkable. MM/MM tomosynthesis screening BI IMPRESSION: No significant changes from prior exam. ASSESSMENT: BI-RADS 2: Benign RECOMMENDATION: Routine annual mammography screening. This patient's information was entered into a reminder system with a target due date for their next mammogram.
== END 2022-08-10 13:20 | disposition home or self-care (01) ==
LOC: HO.MAMMO 13:19
PROVIDERS: PCP Internal Medicine; Visit Provider Internal Medicine
DX: Z12.31 Encounter for screening mammogram for malignant neoplasm of breast (principal)
CPT/HCPCS: 77063; 77067

== ENCOUNTER 2022-11-06 07:52 | Outpatient (REF) | payer OTHER, SELFPAY ==
[2022-11-06 09:08] LABS: Anion Gap 9 (12-20); Blood Urea Nitrogen 17 mg/dL (9-16); Calcium 9.4 mg/dL (8.4-10.2); Carbon Dioxide 25 mmol/L (22-29); Chloride 110 mmol/L (96-108); Estimated Glomerular Filt Rate 38; Glucose Random 145 mg/dL (60-115); Potassium 4.2 mmol/L (3.3-5.1); Sodium 140 mmol/L (135-145)
== END 2022-11-06 07:53 | disposition home or self-care (01) ==
LOC: HO.LAB 07:52
PROVIDERS: PCP Internal Medicine; Visit Provider Internal Medicine Hypertension Specialist
DX: N18.32 Chronic kidney disease, stage 3b (principal)
CPT/HCPCS: 36415; 80048

== ENCOUNTER 2022-11-27 07:02 | Outpatient (REF) | payer OTHER, SELFPAY ==
[2022-11-27 09:06] LABS: Alanine Aminotransferase 18 U/L (0-31); Albumin Level 3.9 g/dL (3.5-5.0); Alkaline Phosphatase 98 U/L (39-117); Anion Gap 11 (12-20); Aspartate Amino Transferase 31 U/L (5-31); Bilirubin Total 0.4 mg/dL (0.0-1.0); Blood Urea Nitrogen 23 mg/dL (9-16); Calcium 9.5 mg/dL (8.4-10.2); Carbon Dioxide 25 mmol/L (22-29); Chloride 107 mmol/L (96-108); Cholesterol 117 mg/dL (<200); Estimated Glomerular Filt Rate 33; Glucose Fasting 174 mg/dL (60-99); HDL Cholesterol 46 mg/dL (>40); LDL Cholesterol Calculated 43 mg/dL (<100); Potassium 4.2 mmol/L (3.3-5.1); Sodium 139 mmol/L (135-145); Total Protein 7.4 g/dL (6.5-8.0); Triglycerides 140 mg/dL (<150)
[2022-11-27 09:20] LABS: Vitamin D 25-OH Total 27.8 ng/mL (>30)
[2022-11-27 10:19] LABS: Creatinine Urine 127.92 mg/dL; Microalbum/Creatinine Ratio Ur 10.9 ug/mg cr (<30)
== END 2022-11-27 07:03 | disposition home or self-care (01) ==
LOC: HO.LAB 07:02
PROVIDERS: PCP Internal Medicine; Visit Provider Internal Medicine
DX: E11.22 Type 2 diabetes mellitus with diabetic chronic kidney disease (principal); N18.9 Chronic kidney disease, unspecified; E78.5 Hyperlipidemia, unspecified; E55.9 Vitamin D deficiency, unspecified
CPT/HCPCS: 36415; 80053; 80061; 82043; 82306; 82570

== ENCOUNTER 2022-11-29 09:04 | Outpatient (AMB) | payer OTHER, SELFPAY ==
[2022-11-29 09:10] VITALS: BP 110/64; PULSE 72
--- NOTE | 2022-11-29 09:10 | MHC.PC.OV ---
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 Required: No Accompanied by: Self / Same As Patient Allergies atorvastatin Allergy (Intermediate, Verified 11/29/22 09:24) myalgias ibuprofen Allergy (Intermediate, Verified 11/29/22 09:24) contraindicated due to kidneys insulin aspart Allergy (Intermediate, Verified 11/29/22 09:24) swelling in legs pioglitazone Allergy (Intermediate, Verified 11/29/22 09:24) face swelling pollen extracts [POLLEN] Allergy (Intermediate, Verified 11/29/22 09:24) ITCHY,SNEEZING, RUNNY NOSE Medication List - Last Reconciled 11/29/22 by Larisa Mari MD aspirin (Adult Aspirin Regimen) 81 mg PO DAILY blood sugar diagnostic (OneTouch Ultra Test strips) As directed four times a day blood-glucose meter (Accu-Chek Guide Glucose Meter) As directed blood-glucose meter (KloudCatchuch Ultra2 Meter) As directed diclofenac sodium 1% 2 grams topical QID 30 days ferrous sulfate 325 mg PO BID flash glucose scanning reader (FreeStyle Jackson 2 [place]) As directed flash glucose sensor (FreeStyle Jackson 2 Sensor kit) As directed every 2 weeks insulin degludec (Tresiba FlexTouch U-100 insulin) 37 units (0.37 mL) subcut BEDTIME insulin lispro (Humalog KwikPen (U-100) Insulin) 6 units small -8 units larger meals subcut 3 times a day; lancets As directed lisinopril 2.5 mg PO DAILY 90 days loratadine 10 mg PO DAILY 90 days metoprolol succinate ER 25 mg PO DAILY omeprazole 20 mg PO DAILY 90 days pen needle, diabetic Use 1 needle8 four times a day rosuvastatin 40 mg PO DAILY 90 days semaglutide (Ozempic) 1 mg (0.75 mL) subcut QWEEK 90 days Tobacco use date assessed: 04/02/22 Fall risk assessment: No Falls in past year Last assessed Fall Risk: 11/29/22 Dental Screening Dental Screen Date: 11/29/22 Did you have a dental visit in the last 12 months?: No Did you have a dental problem in the last 6 months where you did not have access to dental care?: No Was dental information given to patient?: Patient declined HPI HPI Comments History of Present Illness Details This is a 72-year-old female with diabetes mellitus type 2 with chronic kidney disease stage 3 that comes for her physical exam. A1c elevated and I will increase Tresiba from 38 units to 40 units once a day. Last mammogram was 2022 and was normal. Last colonoscopy was 2017 and she has history of tubular adenoma and was recommended to repeat colonoscopy in 5-7 years. Will be referred to Gastroenterology. No need for Pap smear due to age. Already had her flu vaccine. Last diabetic eye exam was last year and has a scheduled diabetic eye exam 12/18/2022. Her GFR has mildly decreased and this is follow by Nephrology. LDL within goal. Blood pressure stable. No acute complaints. [facility] Medical History Murmur Vitamin D deficiency Secondary hyperparathyroidism Osteoarthritis of right shoulder Right shoulder pain Hearing loss Exposure to COVID-19 virus Anemia Obesity due to excess calories Tubular adenoma of colon Heart murmur Migraines Low vitamin B12 level Fatty liver GERD (gastroesophageal reflux disease) Type 2 diabetes mellitus with chronic kidney disease Chronic kidney disease, stage 4 (severe) Hyperlipidemia LDL goal <100 Essential hypertension Surgical History Hx of colonoscopy History of eye surgery H/O excision of ganglion cyst History of tubal ligation History of laparoscopic cholecystectomy Family History Mother Diabetes Heart disease Hypertension Dementia Brother Diabetes Heart disease Sister Diabetes Father Substance use disorder Social History Household Members: None Housing: Apartment Are you a primary live in caregiver to a significant other at home: No Alcohol intake: never Patient Tobacco Use Status: Never used Tobacco e-Cigarette/Vaping Use: Never Used Second Hand Smoke Exposure: No service: No Current occupational status: unemployed and retired Current occupational exposures/hazards: No Cognitive needs: No Hearing needs: No Vision needs: No Questionnaire Thrive Questionnaire Date Thrive assessed: 04/02/22 ANA MARIA-7 AMB Questionnaire ANA MARIA-7 Date ANA MARIA - 7 assessed: 04/02/22 Source: Developed by Drs. Rashard Grove, Olga Mittal, Wil Prince and colleagues, with an educational chel from [employer]. Review of Systems Const All systems reviewed & are unremarkable except as noted in HPI and below Eyes Reports no additional complaints, Denies change in vision and Denies other visual disturbances Card Denies chest pain at rest, Denies chest pain with activity, Denies edema, Denies irregular heart rhythm, Denies claudication, Denies dyspnea, Denies dyspnea on exertion, Denies orthopnea, Denies paroxysmal nocturnal dyspnea and Denies slow heart rate Resp Denies cough, Denies dyspnea and Denies dyspnea on exertion GI Denies abdominal pain, Denies change in bowel habits, Denies excessive flatus, Denies nausea and Denies vomiting Denies urinary incontinence, Denies urinary hesitancy and Denies urinary urgency Musc Denies abnormal gait, Denies atrophy, Denies deformity and Denies limited range of motion Skin/Breast Denies bleeding lesions, Denies changing lesions and Denies rash Neuro Denies abnormal gait, Denies behavioral changes, Denies confusion and Denies lack of coordination Psych Denies behavioral changes and Denies confusion Physical exam (Primary Care) Vital Signs: Last Vital Signs BP 110/64 11/29/22 09:10 BMI result Body Mass Index 30.0 Tobacco/Smoking Status: Tobacco use Status Tobacco use date assessed 04/02/22 11/29/22 09:10 Patient Tobacco Use Status Never used Tobacco 11/29/22 09:10 Tobacco use type 11/23/21 09:03 e-Cigarette/Vaping Use Never Used 11/29/22 09:10 Thrive Assessment: Date of Thrive Assessment Date Thrive assessed 04/02/22 11/29/22 09:10 Const General: No confusion Orientation/consciousness: patient oriented x3 and No confusion HENMT Head: Yes normal to inspection, Yes normocephalic and Yes atraumatic Ears: external ears normal Eyes General: appearance normal, both eyes and all related structures Eyelids: Yes eyelids normal Conjunctivae: conjunctivae normal Neck Neck: Yes normal visual inspection and Yes supple Resp Effort & Inspection: normal respiratory effort Auscultation: clear to auscultation bilaterally Cardio Jugular venous distension: no JVD Rate: regular rate Rhythm: regular rhythm Heart sounds: S1 normal heart sound present and S2 normal heart sound present GI Inspection: Yes normal to inspection Palpation (GI): Soft to palpation and nontender Auscultation: normal bowel sounds Skin General skin exam: no rashes or lesions noted Neuro General: patient oriented x3, no focal motor deficits and No confusion Extrem General: Yes full ROM Psych Appearance: grossly normal Results AMB Hemoglobin A1c AMB Hemoglobin A1c 7.7 % Last Edit by KELSIE Barber on 11/29/22 09:17 Results Reviewed Results Reviewed: Laboratory Last Values Hgb A1c (Clinic) 7.7 % (4.0-6.0) H 11/29/22 09:15 Assessment and Plan Assessment & Plan (1) Physical exam: Code(s): Z00.00 - Encounter for general adult medical examination without abnormal findings Plan: Repeat in a year. (2) CKD (chronic kidney disease) stage 3, GFR 30-59 ml/min: Code(s): N18.30 - Chronic kidney disease, stage 3 unspecified Plan: Follow-up with nephrology. Keep blood pressure within goal. Avoid NSAIDs. 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 Increase Tresiba to 40 units once a day. A1c goal is equal or less than 7%. Orders: Orders IRON PROFILE 4 Months D64.9 - Anemia, unspecified Vitamin D 25-OH Total 4 Months E55.9 - Vitamin D deficiency, unspecified Comprehensive [place]. 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 AMB Hemoglobin A1c Today E11.22 - Type 2 diabetes mellitus with diabetic chronic kidney disease Complete Blood Count Auto Diff 4 Months D64.9 - Anemia, unspecified Lipid Panel 4 Months E78.5 - Hyperlipidemia, unspecified Microalbumin, Random (w Creat) 4 Months E11.9 - Type 2 diabetes mellitus without complications Referrals Gastroenterology Referral D12.6 - Benign neoplasm of colon, unspecified, Z12.11 - Encounter for screening for malignant neoplasm of colon Medications: Changed From insulin degludec (Tresiba FlexTouch U-100 insulin) 37 units (0.37 mL) subcut BEDTIME 15 mL 0RF E11.22 - Type 2 diabetes mellitus with diabetic chronic kidney disease, N18.32 - Chronic kidney disease, stage 3b, Z79.4 - penitentiary (current) use of insulin To insulin degludec (Tresiba FlexTouch U-100 insulin) 40 units (0.4 mL) subcut BEDTIME 90 days 36 mL 1RF E11.22 - Type 2 diabetes mellitus with diabetic chronic kidney disease, N18.32 - Chronic kidney disease, stage 3b, 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
== END 2022-11-29 09:35 | disposition home or self-care (01) ==
PROVIDERS: Visit Provider Internal Medicine
DX: Z00.00 Encounter for general adult medical examination without abnormal findings (principal); E11.22 Type 2 diabetes mellitus with diabetic chronic kidney disease; N18.32 Chronic kidney disease, stage 3b; Z79.4 Long term (current) use of insulin
CPT/HCPCS: 83036; 99397

== ENCOUNTER 2023-03-28 07:08 | Outpatient (REF) | payer OTHER, SELFPAY ==
[2023-03-28 07:21] LABS: MANUAL DIFF FLAG NO
[2023-03-28 07:48] LABS: Basophils Percent Auto 0.8 % (0-2); Eosinophils Absolute Auto 0.2 X10*3/uL (0.0-0.4); Eosinophils Percent Auto 3.3 % (0-4); Hematocrit 32.1 % (37.0-47.0); Hemoglobin 10.3 g/dl (12.0-16.0); Imm Gran Abs Auto 0.01 X10*3/uL (0.00-0.03); Imm Gran Pct Auto 0.2 % (0.0-0.4); Lymphocytes Absolute Auto 2.2 X10*3/uL (1.2-4.9); Lymphocytes Percent Auto 42.1 % (20-40); Mean Corpuscular HGB Conc 32.1 g/dl (31.0-35.0); Mean Corpuscular Hemoglobin 27.8 pg (27.0-33.0); Mean Corpuscular Volume 86.5 fL (80.0-98.0); Mean Platelet Volume 10.4 fL (9.4-12.3); Monocytes Absolute Auto 0.6 X10*3/uL (0.1-1.2); Monocytes Percent Auto 10.6 % (2-11); Neutrophils Absolute Auto 2.2 x10*3/uL (2.0-8.3); Platelet Count 209 X10*3/uL (160-400); Red Blood Count 3.71 X10*6/uL (4.20-5.50); Red Cell Distribution Width 13.8 % (11.0-16.0); White Blood Count 5.2 X10*3/uL (4.8-10.8)
[2023-03-28 08:19] LABS: Creatinine Urine 159.75 mg/dL; Microalbum/Creatinine Ratio Ur 24.4 ug/mg cr (<30)
[2023-03-28 08:32] LABS: Alanine Aminotransferase 42 U/L (0-31); Albumin Level 3.9 g/dL (3.5-5.0); Alkaline Phosphatase 116 U/L (39-117); Anion Gap 12 (12-20); Aspartate Amino Transferase 42 U/L (5-31); Bilirubin Total 0.6 mg/dL (0.0-1.0); Blood Urea Nitrogen 15 mg/dL (9-16); Calcium 9.2 mg/dL (8.4-10.2); Carbon Dioxide 25 mmol/L (22-29); Chloride 109 mmol/L (96-108); Cholesterol 109 mg/dL (<200); Estimated Glomerular Filt Rate 35; Glucose Fasting 134 mg/dL (60-99); HDL Cholesterol 51 mg/dL (>40); Iron 62 mcg/dL (30-160); LDL Cholesterol Calculated 39 mg/dL (<100); Percent Iron Saturation 18 % (15-50); Potassium 4.4 mmol/L (3.3-5.1); Sodium 142 mmol/L (135-145); Total Iron Binding Capacity 353 mcg/dL (228-428); Total Protein 7.6 g/dL (6.5-8.0); Triglycerides 97 mg/dL (<150); Unsaturated Iron Binding 291 ug/dL
== END 2023-03-28 07:09 | disposition home or self-care (01) ==
LOC: HO.LAB 07:08
PROVIDERS: PCP Internal Medicine; Visit Provider Internal Medicine
DX: E11.22 Type 2 diabetes mellitus with diabetic chronic kidney disease (principal); N18.32 Chronic kidney disease, stage 3b; E55.9 Vitamin D deficiency, unspecified; D64.9 Anemia, unspecified; E78.5 Hyperlipidemia, unspecified; Z79.4 Long term (current) use of insulin
CPT/HCPCS: 36415; 80053; 80061; 82043; 82306; 82570; 83540; 85025

== ENCOUNTER 2023-04-02 13:07 | Outpatient (AMB) | payer OTHER, SELFPAY ==
[2023-04-02 13:14] VITALS: BP 118/70; BMI 29.9
--- NOTE | 2023-04-02 13:14 | A.OFFPC_ITS ---
Vital Signs 04/02/23 13:14 Height 5 ft 1 in Weight 158 lb BMI 29.9 BP 118/70 Blood Pressure Location Lt brachial Position Sitting Intake Visit Reasons: dm Intake Note: Patient here for a follow up DM Mine Inspector Required: No Accompanied by: Self / Same As Patient Allergies atorvastatin Allergy (Intermediate, Verified 04/02/23 13:23) myalgias ibuprofen Allergy (Intermediate, Verified 04/02/23 13:23) contraindicated due to kidneys insulin aspart Allergy (Intermediate, Verified 04/02/23 13:23) swelling in legs pioglitazone Allergy (Intermediate, Verified 04/02/23 13:23) face swelling pollen extracts [POLLEN] Allergy (Intermediate, Verified 04/02/23 13:23) ITCHY,SNEEZING, RUNNY NOSE Medication List - Last Reconciled 04/02/23 by Larisa Mari MD aspirin (Adult Aspirin Regimen) 81 mg PO DAILY blood sugar diagnostic (OneTouch Ultra Test strips) As directed four times a day blood-glucose meter (Accu-Chek Guide Glucose Meter) As directed blood-glucose meter (SymformTouch Ultra2 Meter) As directed flash glucose scanning reader ([employer]Style Jackson 2 [place]ick) As directed flash glucose sensor (FreeStyle Jackson 2 Sensor kit) As directed every 2 weeks insulin degludec (Tresiba FlexTouch U-100 insulin) 40 units (0.4 mL) subcut BEDTIME 90 days lancets As directed lisinopril 2.5 mg PO DAILY 90 days loratadine 10 mg PO DAILY 90 days metoprolol succinate ER 25 mg PO DAILY omeprazole 20 mg PO DAILY 90 days pen needle, diabetic Use 1 needle8 four times a day rosuvastatin 40 mg PO DAILY 90 days semaglutide (Ozempic) 1 mg (0.75 mL) subcut QWEEK 90 days Tobacco use date assessed: 04/02/23 Fall risk assessment: No Falls in past year Last assessed Fall Risk: 04/02/23 Dental Screening Dental Screen Date: 04/02/23 Did you have a dental visit in the last 12 months?: No Did you have a dental problem in the last 6 months where you did not have access to dental care?: No Was dental information given to patient?: Patient has dentist HPI HPI Comments History of Present Illness Details This is 73-year-old female with diabetes mellitus type 2 on long-term current use of insulin, chronic kidney disease stage 3, hyperlipidemia, chronic GERD and vitamin-D deficiency that comes today for follow-up on her conditions. A1c slightly elevated and she is compliant with her medications. Blood pressure stable. GFR has not significantly changed and this is follow by Nephrology. LDL within goal. GERD stable with PPIs. Vitamin-D is low and supplement will be sent. Diabetic eye exam done November 2022. No chest pain shortness on breath. [facility] Medical History (Updated 04/02/23 @ 13:47 by Larisa Mari MD) Murmur Vitamin D deficiency Secondary hyperparathyroidism Osteoarthritis of right shoulder Right shoulder pain Hearing loss Exposure to COVID-19 virus Anemia Obesity due to excess calories Tubular adenoma of colon Heart murmur Migraines Low vitamin B12 level Fatty liver GERD (gastroesophageal reflux disease) Type 2 diabetes mellitus with chronic kidney disease Chronic kidney disease, stage 4 (severe) Hyperlipidemia LDL goal <100 Essential hypertension Surgical History Hx of colonoscopy History of eye surgery H/O excision of ganglion cyst History of tubal ligation History of laparoscopic cholecystectomy Family History Mother Diabetes Heart disease Hypertension Dementia Brother Diabetes Heart disease Sister Diabetes Father Substance use disorder Social History Household Members: None Housing: Apartment Are you a primary children's zoo caretaker to a significant other at home: No Alcohol intake: never Patient Tobacco Use Status: Never used Tobacco e-Cigarette/Vaping Use: Never Used Second Hand Smoke Exposure: No service: No Current occupational status: unemployed and retired Current occupational exposures/hazards: No Cognitive needs: No Hearing needs: No Vision needs: Yes Questionnaire PHQ-9 Over the last 2 weeks, how often have you been bothered by any of the following problems? 1. Little interest or pleasure in doing things: not at all 2. Feeling down, depressed, or hopeless: not at all 3. Trouble falling or staying asleep, or sleeping too much: not at all 4. Feeling tired or having little energy: not at all 5. Poor appetite or overeating: not at all 6. Feeling bad about yourself - or that you are a failure or have let yourself or your family down: not at all 7. Trouble concentrating on things, such as reading the newspaper or watching television: not at all 8. Moving or speaking so slowly that other people could have noticed. Or the opposite - being so fidgety or restless that you have been moving around a lot more than usual: not at all 9. Thoughts that you would be better off or of hurting yourself in some way: not at all Total score: 0 Depression Screening Interpretation: Negative Depression Screening Done: Yes 70759 - PHQ-9 Billing: Yes Source: Developed by Drs. Rashard Grove, Olga Mittal, Wil Prince and colleagues, with an educational chel from [employer]. Thrive Questionnaire Date Thrive assessed: 04/02/23 I am a: Patient What is your living situation today?: I have a steady place to live Within the past 12 months, did the food you bought not last and you didn't have the money to get more?: Never true Within the past 12 months, did you worry whether your food would run out before you got money to buy more?: Never true Do you have trouble paying for medicines?: No Do you have trouble getting transportation to medical appointments?: No Do you have trouble paying your heating and electricity bill?: No Do you have trouble taking care of your child, family member or friend?: No Do you have trouble with day-to-day activities such as bathing, preparing meals, shopping, managing finances, etc.?: No Are you currently unemployed and looking for a job?: No Are you interested in more education?: No Please select the resources that you would like help with: None Currently or been in a relationship where the following occur: no concerns reported THRIVE Score: 0 AUDIT C Alcohol Use Questionnaire (AUDIT-C) 1. How often do you have a drink containing alcohol?: Never Total Score: 0 ANA MARIA-7 AMB Questionnaire ANA MARIA-7 Date ANA MARIA - 7 assessed: 04/02/23 Feeling nervous, anxious, or on edge: 0 = Not at all Not being able to stop or control worryin = Not at all Worrying too much about different things: 0 = Not at all Trouble relaxin = Not at all Being so restless that it is hard to sit still: 0 = Not at all Becoming easily annoyed or irritable: 0 = Not at all Feeling afraid as if something awful might happen: 0 = Not at all Total ANA MARIA-7 score (0-4 normal; 5-9 mild; 10-14 moderate; 15-21 severe): 0 Source: Developed by Drs. Rashard Grove, Olga Mittal, Wil Prince and colleagues, with an educational chel from [employer]. ANA MARIA-7 Assessment Billing ANA MARIA-7 Assessment Tool: ANA MARIA-7 Assessment 31125 Review of Systems Const All systems reviewed & are unremarkable except as noted in HPI and below Eyes Reports no additional complaints, Denies change in vision and Denies other visual disturbances Card Denies chest pain at rest, Denies chest pain with activity, Denies edema, Denies irregular heart rhythm, Denies claudication, Denies dyspnea, Denies dyspnea on exertion, Denies orthopnea, Denies paroxysmal nocturnal dyspnea and Denies slow heart rate Resp Denies cough, Denies dyspnea and Denies dyspnea on exertion GI Denies abdominal pain, Denies change in bowel habits, Denies excessive flatus, Denies nausea and Denies vomiting Denies urinary incontinence, Denies urinary hesitancy and Denies urinary urgency Musc Denies abnormal gait, Denies atrophy, Denies deformity and Denies limited range of motion Skin/Breast Denies bleeding lesions, Denies changing lesions and Denies rash Neuro Denies abnormal gait, Denies behavioral changes and Denies lack of coordination Psych Denies behavioral changes Physical exam (Primary Care) Vital Signs: Last Vital Signs BP 118/70 04/02/23 13:14 BMI result Body Mass Index 29.9 Tobacco/Smoking Status: Tobacco use Status Tobacco use date assessed 04/02/23 04/02/23 13:17 Patient Tobacco Use Status Never used Tobacco 04/02/23 13:17 Tobacco use type 11/23/21 09:03 e-Cigarette/Vaping Use Never Used 04/02/23 13:17 PHQ-9: PHQ-9 Score PHQ-9: Total score 0 04/02/23 13:35 Depression Screening Interpretation: Negative Thrive Assessment: Date of Thrive Assessment Date Thrive assessed 04/02/23 04/02/23 13:19 Currently or been in a relationship where the following occur: no concerns reported Eyes General: appearance normal, both eyes and all related structures Eyelids: Yes eyelids normal Conjunctivae: conjunctivae normal Neck Neck: Yes normal visual inspection and Yes supple Resp Effort & Inspection: normal respiratory effort Auscultation: clear to auscultation bilaterally Cardio Jugular venous distension: no JVD Rate: regular rate Rhythm: regular rhythm Heart sounds: S1 normal heart sound present and S2 normal heart sound present Extrem General: Yes full ROM Results AMB Hemoglobin A1c AMB Hemoglobin A1c 7.5 % Last Edit by KELSIE Barber on 04/02/23 13:2 4 Results Reviewed Results Reviewed: Laboratory Last Values Hgb A1c (Clinic) 7.5 % (4.0-6.0) H 04/02/23 13:19 Assessment and Plan Assessment & Plan (1) Hyperlipidemia LDL goal <70: Code(s): E78.5 - Hyperlipidemia, unspecified Plan: Continue statins. LDL goal is less than 70. (2) CKD (chronic kidney disease) stage 3, GFR 30-59 ml/min: Code(s): N18.30 - Chronic kidney disease, stage 3 unspecified Plan: Avoid NSAIDs. Keep blood pressure within goal. Follow-up with nephrology. (3) Chronic GERD: Code(s): K21.9 - Gastro-esophageal reflux disease without esophagitis Plan: Continue PPIs. (4) Vitamin D deficiency: Code(s): E55.9 - Vitamin D deficiency, unspecified Plan: Start vitamin-D. (5) Type 2 diabetes mellitus with chronic kidney disease: Code(s): E11.22 - Type 2 diabetes mellitus with diabetic chronic kidney disease Qualifiers: Diabetes mellitus care home insulin use: with long term care pharmacist use Chronic kidney disease stage: stage 3 (moderate) Chronic kidney disease stage 3 subtype: stage 3b (GFR 30-44) Qualified Code(s): E11.22 - Type 2 diabetes mellitus with diabetic chronic kidney disease; N18.32 - Chronic kidney disease, stage 3b; Z79.4 - predatory animal exterminator (current) use of insulin Plan: Continue metformin, Ozempic and insulin. A1c goal is equal or less than 7%. Orders: Orders AMB Hemoglobin A1c Today E11.22 - Type 2 diabetes mellitus with diabetic chronic kidney disease Complete Blood Count Auto Diff 4 Months D64.9 - Anemia, unspecified IRON PROFILE 4 Months D64.9 - Anemia, unspecified Lipid Panel 4 Months E78.5 - Hyperlipidemia, unspecified Microalbumin, Random (w Creat) 4 Months E11.9 - Type 2 diabetes mellitus without complications Vitamin B12 and Folate 4 Months E53.8 - Deficiency of other specified B group vitamins Vitamin D 25-OH Total 4 Months E55.9 - Vitamin D deficiency, unspecified Comprehensive [place]. Panel Fast 4 Months N18.30 - Chronic kidney disease, stage 3 unspecified Medications: New cholecalciferol (vitamin D3) 50 mcg PO DAILY 90 days 90 caps 1RF Coding Level of Care Code Est Pt Level 4 (07456) Diagnoses Hyperlipidemia LDL goal <70 E78.5 CKD (chronic kidney disease) stage 3, GFR 30-59 ml/min N18.30 Chronic GERD K21.9 Vitamin D deficiency E55.9 Type 2 diabetes mellitus with stage 3b chronic kidney disease, with long-term current use of insulin E11.22; N18.32; Z79.4 Diabetes mellitus care home insulin use: with long term care pharmacist use Chronic kidney disease stage: stage 3 (moderate) Chronic kidney disease stage 3 subtype: stage 3b (GFR 30-44) Additional Codes ANA MARIA-7 Assessment Billing - ANA MARIA-7 Assessment Tool: ANA MARIA-7 Assessment 54507 ([id number]) Time Spent (min) 25
== END 2023-04-02 13:39 | disposition home or self-care (01) ==
PROVIDERS: PCP Internal Medicine; Visit Provider Internal Medicine
DX: E11.22 Type 2 diabetes mellitus with diabetic chronic kidney disease (principal); N18.30 Chronic kidney disease, stage 3 unspecified; N18.32 Chronic kidney disease, stage 3b; Z79.4 Long term (current) use of insulin; E78.5 Hyperlipidemia, unspecified; K21.9 Gastro-esophageal reflux disease without esophagitis; E55.9 Vitamin D deficiency, unspecified
CPT/HCPCS: 83036; 99214

== ENCOUNTER 2023-04-25 13:38 | Outpatient (AMB) | payer OTHER, SELFPAY ==
--- NOTE | 2023-04-25 13:40 | HO.NEPHOV_ITS ---
HPI HPI Comments History of Present Illness Details 73-year-old female with diabetes mellitu s type 2 on long-term current use of insulin, chronic kidney disease stage 3, hyperlipidemia, chronic GERD and vitamin-D deficiency that comes today for follow-up on her conditions. A1c slightly elevated and she is compliant with her medications. Blood pressure stable. GFR has not significantly changed and this is follow by Nephrology. LDL within goal. GERD stable with PPIs. Vitamin-D is low and supplement will be sent. Diabetic eye exam done November 2022. No chest pain shortness on breath. On ozempic and lost weight Feels better [facility] Medical History (Updated 04/02/23 @ 13:47 by Larisa Mari MD) Murmur Vitamin D deficiency Secondary hyperparathyroidism Osteoarthritis of right shoulder Right shoulder pain Hearing loss Exposure to COVID-19 virus Anemia Obesity due to excess calories Tubular adenoma of colon Heart murmur Migraines Low vitamin B12 level Fatty liver GERD (gastroesophageal reflux disease) Type 2 diabetes mellitus with chronic kidney disease Chronic kidney disease, stage 4 (severe) Hyperlipidemia LDL goal <100 Essential hypertension Surgical History Hx of colonoscopy History of eye surgery H/O excision of ganglion cyst History of tubal ligation History of laparoscopic cholecystectomy Family History Mother Diabetes Heart disease Hypertension Dementia Brother Diabetes Heart disease Sister Diabetes Father Substance use disorder Social History Household Members: None Housing: Apartment Are you a primary acute care physical therapist to a significant other at home: No Alcohol intake: never Patient Tobacco Use Status: Never used Tobacco e-Cigarette/Vaping Use: Never Used Second Hand Smoke Exposure: No service: No Current occupational status: unemployed and retired Current occupational exposures/hazards: No Cognitive needs: No Hearing needs: No Vision needs: Yes Vital Signs 04/25/23 13:42 Height 5 ft 1 in Weight 158 lb BMI 29.9 BP 104/62 Blood Pressure Location Lt brachial Position Sitting Pulse 80 Pulse Source Pulse Oximeter Pulse Oximetry (%) 97 Oxygen Delivery Method Room Air Physical Exam Vital Signs: Last Vital Signs Pulse 80 04/25/23 13:42 BP 104/62 04/25/23 13:42 Pulse Ox 97 04/25/23 13:42 Oxygen Delivery Method Room Air 04/25/23 13:42 BMI result Body Mass Index 29.9 Const General: no acute distress and alert Orientation/consciousness: patient oriented x3 HEENT Head: Yes normocephalic and Yes atraumatic Eyes Sclerae: sclerae normal Pupils: Equal, round and reactive pupils present EOM: EOMs intact bilaterally Neck Neck: Yes no lymphadenopathy, Yes trachea midline and Yes no JVD Thyroid: Thyroid normal Resp Effort & Inspection: normal respiratory effort Auscultation: clear to auscultation bilaterally Cardio Rate: regular rate Rhythm: regular rhythm Heart sounds: S1 normal heart sound present and S2 normal heart sound present Peripheral pulses: Peripheral pulses 2+ throughout GI Inspection: Yes normal to inspection and No distended Auscultation: normal bowel sounds Skin Other: No acanthosis nigricans or diabetic dermopathy General skin exam: no rashes or lesions noted Neuro General: patient oriented x3 and gait normal Cranial nerves: Yes Equal, round and reactive pupils present Deep tendon reflexes (DTR's): Rt Biceps (C5, C6): 2+, Left biceps reflex intensity grade: 2+, Right patellar reflex intensity grade: 2+ and Left patellar reflex intensity grade: 2+ Extrem Other: Visual foot exam: No wounds, no onychomycosis, no dry skin, no calluses General: Yes normal gait, No clubbing, No cyanosis and No edema Psych Affect: normal affect Attitude: cooperative Assessment & Plan Assessment & Plan (1) CKD (chronic kidney disease) stage 3, GFR 30-59 ml/min: Code(s): N18.30 - Chronic kidney disease, stage 3 unspecified Plan: In a setting of HTN and DM Creatinine is stable Will benefit from SGLT-2 inhibitors (2) Anemia: Code(s): D64.9 - Anemia, unspecified Plan: Multifactorial Stable No need for EPO yet (3) Type 2 diabetes mellitus with chronic kidney disease: Code(s): E11.22 - Type 2 diabetes mellitus with diabetic chronic kidney disease Qualifiers: Diabetes mellitus mcc insulin use: with intermodal customer service use Chronic kidney disease stage: stage 3 (moderate) Chronic kidney disease stage 3 subtype: stage 3b (GFR 30-44) Qualified Code(s): E11.22 - Type 2 diabetes mellitus with diabetic chronic kidney disease; N18.32 - Chronic kidney disease, stage 3b; Z79.4 - alf (current) use of insulin Plan: Goal A1C < 7% (4) Essential hypertension: Code(s): I10 - Essential (primary) hypertension Plan: BP well controlled Keep SBP < 130 Avoid hypotension Stay on low salt diet Coding Level of Care Code Est Pt Level 4 (90207) Diagnoses CKD (chronic kidney disease) stage 3, GFR 30-59 ml/min N18.30 Anemia D64.9 Type 2 diabetes mellitus with stage 3b chronic kidney disease, with long-term current use of insulin E11.22; N18.32; Z79.4 Diabetes mellitus mcc insulin use: with intermodal customer service use Chronic kidney disease stage: stage 3 (moderate) Chronic kidney disease stage 3 subtype: stage 3b (GFR 30-44) Essential hypertension I10 Results Reviewed Nephrology Results: Hgb 10.3 g/dl (12.0-16.0) L 03/28/23 WBC 5.2 X10*3/uL (4.8-10.8) 03/28/23 Plt Count 209 X10*3/uL (160-400) 03/28/23 Sodium 142 mmol/L (135-145) 03/28/23 Potassium 4.4 mmol/L (3.3-5.1) 03/28/23 Chloride 109 mmol/L (96-108) H 03/28/23 Carbon Dioxide 25 mmol/L (22-29) 03/28/23 BUN 15 mg/dL (9-16) 03/28/23 Creatinine 1.48 mg/dL (0.5-1.4) H 03/28/23 Calcium 9.2 mg/dL (8.4-10.2) 03/28/23 Urine Creatinine 159.75 mg/dL 03/28/23 Protein/Creatinin Ratio 0.29 (<0.2) H 11/03/21
[2023-04-25 13:42] VITALS: BP 104/62; PULSE 80; O2SAT 97; BMI 29.9
== END 2023-04-25 13:56 | disposition home or self-care (01) ==
PROVIDERS: PCP Internal Medicine; Visit Provider Internal Medicine Hypertension Specialist
DX: I12.9 Hypertensive chronic kidney disease with stage 1 through stage 4 chronic kidney disease, or unspecified chronic kidney disease (principal); E11.22 Type 2 diabetes mellitus with diabetic chronic kidney disease; N18.32 Chronic kidney disease, stage 3b; D63.1 Anemia in chronic kidney disease; Z79.4 Long term (current) use of insulin
CPT/HCPCS: 99214

== ENCOUNTER → 2023-04-25 13:38 | Outpatient (BNVA) | payer OTHER, SELFPAY | PROVIDERS: PCP Internal Medicine; Visit Provider Internal Medicine Hypertension Specialist | DX: E11.22 Type 2 diabetes mellitus with diabetic chronic kidney disease (principal); I12.9 Hypertensive chronic kidney disease with stage 1 through stage 4 chronic kidney disease, or unspecified chronic kidney disease; N18.32 Chronic kidney disease, stage 3b; D64.9 Anemia, unspecified; Z79.4 Long term (current) use of insulin | CPT/HCPCS: 99212 ==

== ENCOUNTER 2023-07-19 08:03 | Day surgery (SDC) | payer OTHER, SELFPAY ==
[2023-07-18 07:44] VITALS: BMI 29.7
[2023-07-19 08:21] VITALS: BMI 29.7
--- NOTE | 2023-07-19 08:33 | P.CONAN_ITS ---
[facility] Active Problems Active Problems: All Active Problems Tubular adenoma of colon (Acute) Screen for colon cancer (Acute) CKD (chronic kidney disease) stage 3, GFR 30-59 ml/min (Acute) Chronic GERD (Acute) Hyperlipidemia LDL goal <70 (Acute) Physical exam (Acute) Murmur (Acute) Vitamin D deficiency (Acute) Secondary hyperparathyroidism (Acute) Osteoarthritis of right shoulder (Acute) Hearing loss (Acute) Exposure to COVID-19 virus (Acute) Anemia (Chronic) Obesity due to excess calories (Acute) Type 2 diabetes mellitus with chronic kidney disease (Acute) Essential hypertension (Acute) Past Medical History Medical History Murmur Vitamin D deficiency Secondary hyperparathyroidism Osteoarthritis of right shoulder Right shoulder pain Hearing loss Exposure to COVID-19 virus Anemia Obesity due to excess calories Tubular adenoma of colon Heart murmur Migraines Low vitamin B12 level Fatty liver GERD (gastroesophageal reflux disease) Type 2 diabetes mellitus with chronic kidney disease Chronic kidney disease, stage 4 (severe) Hyperlipidemia LDL goal <100 Essential hypertension Family History Family History Mother Diabetes Heart disease Hypertension Dementia Brother Diabetes Heart disease Sister Diabetes Father Substance use disorder Surgical History Surgical History Hx of colonoscopy History of eye surgery H/O excision of ganglion cyst History of tubal ligation History of laparoscopic cholecystectomy History of Problems with Anesthesia: No Social History Social History Household Members: None Housing: Apartment Are you a primary home care administrator to a significant other at home: No Alcohol intake: never Patient Tobacco Use Status: Never used Tobacco e-Cigarette/Vaping Use: Never Used Second Hand Smoke Exposure: No Use of substances other than those prescribed or required for medical reasons: No Are you DNR?: No Advance Directives: No Advance Directives Information Provided: Yes service: No Current occupational status: unemployed and retired Current occupational exposures/hazards: No Cognitive needs: No Hearing needs: No Vision needs: Yes Meds Allergies Allergy/AdvReac Type Severity Reaction Status Date / Time atorvastatin Allergy Intermediate myalgias Verified 07/19/23 08:27 ibuprofen Allergy Intermediate contraindicated Verified 07/19/23 08:27 due to kidneys insulin aspart Allergy Intermediate swelling Verified 07/19/23 08:27 in legs pioglitazone Allergy Intermediate face Verified 07/19/23 08:27 swelling pollen extracts [POLLEN] Allergy Intermediate ITCHY,SNEEZING, Verified 07/19/23 08:27 RUNNY NOSE Active Medications: Current Medications Sodium Biphosphate/Sodium Phosphate (Sodium Phosphate,Mcdonald-Dibasic 133 Ml Enema) 133 ml SC ONCE PRN PRN Reason: Poor Colonoscopy Prep Results Home Medications ?Medication ?Instructions ?Recorded ?Confirmed ?Last Taken ?Type aspirin 81 mg tablet,delayed 81 mg PO DAILY 01/07/20 07/19/23 07/12/23 History release (Adult Aspirin Regimen) blood-glucose meter (Accu-Chek #1 ea 01/07/20 04/02/23 Unknown History Guide Glucose Meter) lancets 31 gauge #100 ea 01/07/20 04/02/23 Unknown History blood sugar diagnostic (OneTouch 12/26/20 04/02/23 Unknown History Ultra Test strips) blood-glucose meter (OneTouch 12/26/20 04/02/23 Unknown History Ultra2 Meter) Exam Height,Weight and Vital Signs: Height 5 ft 1 in Weight 71.214 kg Airway Mallampati Class: II TM Dist: >3cm Neck ROM: Full Heart: RRR Lungs: CTA Assessment and Plan Assessment Anesthesia Assessment: Anesthesia Plan Discussed and Chart Reviewed Final Anesthetic Review History of Problems with Anesthesia: No NPO: Yes ASA Class: III Final Preanesthetic Review: Meds/Allgs Chart Reviewed, Consent Obtained/Reviewed and Anes Risks/Benef Reviewed Patient Risk: Intermediate Procedure Risk: Low Anesthetic Plan Anesthetic Plan: MAC: Disposition: Standard PACU
[2023-07-19 08:52] VITALS: BP 127/68; PULSE 71; RESP 16; TEMP 36.1; O2SAT 97
[2023-07-19 08:56] LABS: Glucose, Whole Blood 113 mg/dL (60-115)
[2023-07-19 10:15] VITALS: BP 109/49; PULSE 62; RESP 18; TEMP 36.4; O2SAT 100
--- NOTE | 2023-07-19 10:19 | P.BOP_ITS ---
Brief Operative Note Date of Service: 07/19/23 Pre-op diagnosis: Screening Post-op diagnosis: other (Diverticulosis) Procedure: Colonoscopy to the cecum and TI Surgeon: Rashard Lomax MD Anesthesia: MAC Was an Senior User Experience Architect used for this Procedure?: No Estimated blood loss (mL): 0 Pathology: none sent Condition: stable Disposition: PACU
[2023-07-19 10:32] VITALS: BP 107/51; PULSE 80; RESP 18; TEMP 36.4; O2SAT 98
--- NOTE | 2023-07-19 11:12 | OP_ITS ---
DATE OF SERVICE: 07/19/2023 SURGEON: Rashard Lomax MD INDICATIONS: The patient presents for evaluation of colorectal cancer screening and personal history of colon polyps. Full consent has been obtained from her for this, including risks of bleeding and perforation. PREOPERATIVE DIAGNOSIS: POSTOPERATIVE DIAGNOSIS: PROCEDURE PERFORMED: Colonoscopy to cecum and terminal ileum. ESTIMATED BLOOD LOSS: COMPLICATIONS: ANESTHESIA: Monitored anesthesia care. ASSISTANTS: SPECIMENS: PREOPERATIVE DIAGNOSES: Colorectal cancer screening and personal history of colon polyps. POSTOPERATIVE DIAGNOSES: Colorectal cancer screening, personal history of colon polyps, diverticulosis, and internal hemorrhoids. DESCRIPTION OF PROCEDURE: The patient was placed in the left lateral decubitus position. The digital rectal exam revealed no abnormalities. The Olympus video pediatric colonoscope was then entered into the rectum and advanced easily to the cecum. Once in the cecum, I did identify normal-appearing cecal pouch with appendiceal orifice and a normal-appearing ileocecal valve. The terminal ileum was cannulated and appeared normal. The scope was withdrawn back in the colon. The entire cecum and ileocecal valve appeared normal, including the appendiceal orifice. The scope was slowly withdrawn assessing all mucosal surfaces carefully. Preparation was excellent. I did not visualize any sign of polyps, colitis, nor angiodysplasia. There was a mild amount of sigmoid diverticulosis. In the rectum, scope was retroflexed, visualizing internal hemorrhoids, but no other pathology. The rectal mucosa appeared normal. The scope was straightened and withdrawn from the patient. She tolerated the procedure well and was returned to the recovery area in stable condition. IMPRESSION: 1. Diverticulosis. 2. Internal hemorrhoids. PLAN: I would recommend a repeat colonoscopy in 5 years for further screening. She will, otherwise, see me on a p.r.n. basis. She was advised to resume her aspirin and usual diabetes regimen today. MD EVERT Ortega/ADAM / [phone]
== END 2023-07-19 10:54 | disposition home or self-care (01) ==
PROVIDERS: PCP Internal Medicine; Visit Provider Internal Medicine
PROC: 0DJD8ZZ Inspection of Lower Intestinal Tract, Via Natural or Artificial Opening Endoscopic (ICD-10-PCS; CPT 45378; principal; 2023-07-19 09:30)
DX: Z12.11 Encounter for screening for malignant neoplasm of colon (principal); K57.30 Diverticulosis of large intestine without perforation or abscess without bleeding; K64.8 Other hemorrhoids; Z86.010 Personal history of colon polyps; E11.22 Type 2 diabetes mellitus with diabetic chronic kidney disease; I12.9 Hypertensive chronic kidney disease with stage 1 through stage 4 chronic kidney disease, or unspecified chronic kidney disease; N18.30 Chronic kidney disease, stage 3 unspecified; E78.5 Hyperlipidemia, unspecified; K21.9 Gastro-esophageal reflux disease without esophagitis; D64.9 Anemia, unspecified; Z90.49 Acquired absence of other specified parts of digestive tract; Z79.82 Long term (current) use of aspirin; Z79.85 Long-term (current) use of injectable non-insulin antidiabetic drugs; Z79.02 Long term (current) use of antithrombotics/antiplatelets; Z79.899 Other long term (current) drug therapy
CPT/HCPCS: G0105; 82947; J2704

== ENCOUNTER 2023-08-09 06:53 | Outpatient (REF) | payer OTHER, SELFPAY ==
[2023-08-09 07:27] LABS: MANUAL DIFF FLAG NO
[2023-08-09 08:00] LABS: Basophils Percent Auto 0.6 % (0-2); Eosinophils Absolute Auto 0.2 X10*3/uL (0.0-0.4); Eosinophils Percent Auto 3.7 % (0-4); Hematocrit 31.6 % (37.0-47.0); Hemoglobin 10.1 g/dl (12.0-16.0); Lymphocytes Absolute Auto 2.4 X10*3/uL (1.2-4.9); Lymphocytes Percent Auto 48.2 % (20-40); Mean Corpuscular Hemoglobin 28.1 pg (27.0-33.0); Mean Corpuscular Volume 87.8 fL (80.0-98.0); Mean Platelet Volume 9.9 fL (9.4-12.3); Monocytes Absolute Auto 0.6 X10*3/uL (0.1-1.2); Monocytes Percent Auto 11.8 % (2-11); Neutrophils Absolute Auto 1.8 x10*3/uL (2.0-8.3); Neutrophils Percent Auto 35.7 % (45-73); Platelet Count 208 X10*3/uL (160-400); Red Cell Distribution Width 13.8 % (11.0-16.0); White Blood Count 4.9 X10*3/uL (4.8-10.8)
[2023-08-09 08:43] LABS: Creatinine Urine 159.57 mg/dL; Microalbum/Creatinine Ratio Ur 49.5 ug/mg cr (<30)
[2023-08-09 08:55] LABS: Alanine Aminotransferase 15 U/L (0-31); Alkaline Phosphatase 92 U/L (39-117); Anion Gap 14 (12-20); Aspartate Amino Transferase 23 U/L (5-31); Bilirubin Total 0.5 mg/dL (0.0-1.0); Blood Urea Nitrogen 18 mg/dL (9-16); Calcium 9.6 mg/dL (8.4-10.2); Carbon Dioxide 24 mmol/L (22-29); Chloride 109 mmol/L (96-108); Cholesterol 122 mg/dL (<200); Estimated Glomerular Filt Rate 33; Glucose Fasting 127 mg/dL (60-99); HDL Cholesterol 46 mg/dL (>40); Iron 48 mcg/dL (30-160); LDL Cholesterol Calculated 48 mg/dL (<100); Percent Iron Saturation 13 % (15-50); Potassium 4.7 mmol/L (3.3-5.1); Sodium 142 mmol/L (135-145); Total Iron Binding Capacity 363 mcg/dL (228-428); Total Protein 7.5 g/dL (6.5-8.0); Triglycerides 144 mg/dL (<150); Unsaturated Iron Binding 315 ug/dL
[2023-08-09 08:56] LABS: Vitamin D 25-OH Total 24.2 ng/mL (>30)
[2023-08-09 09:07] LABS: Folate 12.7 ng/mL (> or = 4.0); Vitamin B12 241 pg/mL (200-900)
== END 2023-08-09 06:54 | disposition home or self-care (01) ==
LOC: HO.LAB 06:53
PROVIDERS: PCP Internal Medicine; Visit Provider Internal Medicine
DX: E78.5 Hyperlipidemia, unspecified (principal); E11.9 Type 2 diabetes mellitus without complications; D64.9 Anemia, unspecified; E53.8 Deficiency of other specified B group vitamins; E55.9 Vitamin D deficiency, unspecified; N18.30 Chronic kidney disease, stage 3 unspecified
CPT/HCPCS: 36415; 80053; 80061; 82043; 82306; 82570; 82607; 82746; 83540; 85025

== ENCOUNTER → 2023-08-12 13:15 | Outpatient (BNV) | payer OTHER, SELFPAY | PROVIDERS: PCP Internal Medicine; Visit Provider Radiology Diagnostic Radiology | DX: Z12.31 Encounter for screening mammogram for malignant neoplasm of breast (principal) | CPT/HCPCS: 77063; 77067 ==

== ENCOUNTER 2023-08-12 13:33 | Outpatient (REF) | payer OTHER, SELFPAY | END 2023-08-12 13:34 | disposition home or self-care (01) | LOC: HO.MAMMO 13:33 | PROVIDERS: PCP Internal Medicine; Visit Provider Internal Medicine | DX: Z12.31 Encounter for screening mammogram for malignant neoplasm of breast (principal) | CPT/HCPCS: 77063; 77067 ==

== ENCOUNTER 2023-08-14 10:33 | Outpatient (AMB) | payer OTHER, SELFPAY ==
--- NOTE | 2023-08-14 10:35 | A.OFFPC_ITS ---
Vital Signs 08/14/23 10:40 Height 5 ft 1 in Weight 156 lb BMI 29.5 BP 110/62 Blood Pressure Location Lt brachial Position Sitting Intake Visit Reasons: dm Intake Note: Patient here for a follow up DM Dressage Instructor Required: No Accompanied by: Self / Same As Patient Allergies atorvastatin Allergy (Intermediate, Verified 08/14/23 10:54) myalgias ibuprofen Allergy (Intermediate, Verified 08/14/23 10:54) contraindicated due to kidneys insulin aspart Allergy (Intermediate, Verified 08/14/23 10:54) swelling in legs pioglitazone Allergy (Intermediate, Verified 08/14/23 10:54) face swelling pollen extracts [POLLEN] Allergy (Intermediate, Verified 08/14/23 10:54) ITCHY,SNEEZING, RUNNY NOSE Medication List - Last Reconciled 08/14/23 by Larisa Mari MD aspirin (Adult Aspirin Regimen) 81 mg PO DAILY blood sugar diagnostic (OneTouch Ultra Test strips) As directed four times a day blood-glucose meter (Accu-Chek Guide Glucose Meter) As directed blood-glucose meter ([employer] Ultra2 Meter) As directed cholecalciferol (vitamin D3) 50 mcg PO DAILY 90 days flash glucose scanning reader (FreeStyle Jackson 2 [place]) As directed flash glucose sensor (FreeStyle Jackson 2 Sensor kit) As directed every 2 weeks insulin degludec (Tresiba FlexTouch U-100 insulin) 40 units (0.4 mL) subcut BEDTIME 90 days lancets As directed lisinopril 2.5 mg PO DAILY 90 days loratadine 10 mg PO DAILY 90 days metoprolol succinate ER 25 mg PO DAILY omeprazole 20 mg PO DAILY 90 days pen needle, diabetic Use 1 needle8 four times a day rosuvastatin 40 mg PO DAILY 90 days semaglutide (Ozempic) 1 mg (0.75 mL) subcut QWEEK 90 days Tobacco use date assessed: 04/02/23 Fall risk assessment: No Falls in past year Last assessed Fall Risk: 08/14/23 Dental Screening Dental Screen Date: 04/02/23 HPI HPI Comments History of Present Illness Details This is a 73-year-old female with diabetes mellitus type 2 on long-term current use of insulin, hypertension, hyperlipidemia, chronic kidney disease stage 3 and secondary hyperparathyroidism due to kidneys that comes today for follow-up on her conditions. A1c still elevated and I will increase insulin from 40 units to 42 units. Blood pressure stable. LDL within goal. Last GFR was 33 and this is follow by Nephrology. Secondary hyperparathyroidism is due to chronic kidney disease which is follow by Nephrology. No chest pain or shortness on breath. Compliant with medications. PENDING SALE TO [facility] Medical History (Updated 08/14/23 @ 12:34 by Larisa Mari MD) Murmur Vitamin D deficiency Secondary hyperparathyroidism Osteoarthritis of right shoulder Right shoulder pain Hearing loss Exposure to COVID-19 virus Anemia Obesity due to excess calories Tubular adenoma of colon Heart murmur Migraines Low vitamin B12 level Fatty liver GERD (gastroesophageal reflux disease) Type 2 diabetes mellitus with chronic kidney disease Chronic kidney disease, stage 4 (severe) Hyperlipidemia LDL goal <100 Essential hypertension Surgical History Hx of colonoscopy History of eye surgery H/O excision of ganglion cyst History of tubal ligation History of laparoscopic cholecystectomy Family History Mother Diabetes Heart disease Hypertension Dementia Brother Diabetes Heart disease Sister Diabetes Father Substance use disorder Social History Household Members: None Housing: Apartment Are you a primary residential child care counselor to a significant other at home: No Alcohol intake: never Patient Tobacco Use Status: Never used Tobacco e-Cigarette/Vaping Use: Never Used Second Hand Smoke Exposure: No service: No Current occupational status: unemployed and retired Current occupational exposures/hazards: No Cognitive needs: No Hearing needs: No Vision needs: Yes Questionnaire Thrive Questionnaire Date Thrive assessed: 04/02/23 ANA MARIA-7 AMB Questionnaire ANA MARIA-7 Date ANA MARIA - 7 assessed: 04/02/23 Source: Developed by Drs. Rashard Grove, Olga Mittal, Wil Prince and colleagues, with an educational chel from [employer]. Review of Systems Const All systems reviewed & are unremarkable except as noted in HPI and below Card Denies chest pain at rest, Denies chest pain with activity, Denies edema, Denies irregular heart rhythm, Denies claudication, Denies dyspnea, Denies dyspnea on exertion, Denies orthopnea, Denies paroxysmal nocturnal dyspnea and Denies slow heart rate Resp Denies cough, Denies dyspnea and Denies dyspnea on exertion Physical exam (Primary Care) Vital Signs: Last Vital Signs BP 110/62 08/14/23 10:40 BMI result Body Mass Index 29.5 Tobacco/Smoking Status: Tobacco use Status Tobacco use date assessed 04/02/23 08/14/23 10:38 Patient Tobacco Use Status Never used Tobacco 08/14/23 10:38 Tobacco use type 11/23/21 09:03 e-Cigarette/Vaping Use Never Used 08/14/23 10:38 Thrive Assessment: Date of Thrive Assessment Date Thrive assessed 04/02/23 08/14/23 10:38 Resp Effort & Inspection: normal respiratory effort Auscultation: clear to auscultation bilaterally Cardio Jugular venous distension: no JVD Rate: regular rate Rhythm: regular rhythm Heart sounds: S1 normal heart sound present and S2 normal heart sound present Extrem General: Yes full ROM Results AMB Hemoglobin A1c AMB Hemoglobin A1c 7.5 % Last Edit by KELSIE Barber on 08/14/23 10:5 4 Results Reviewed Results Reviewed: Laboratory Last Values Hgb A1c (Clinic) 7.5 % (4.0-6.0) H 08/14/23 10:35 Assessment and Plan Assessment & Plan (1) CKD (chronic kidney disease) stage 3, GFR 30-59 ml/min: Code(s): N18.30 - Chronic kidney disease, stage 3 unspecified Qualifiers: Chronic kidney disease stage 3 subtype: stage 3b (GFR 30-44) Qualified Code(s): N18.32 - Chronic kidney disease, stage 3b Plan: Avoid NSAIDs. Keep blood pressure less than 130/80. Follow-up with nephrology. Continue lisinopril. (2) Type 2 diabetes mellitus with chronic kidney disease: Code(s): E11.22 - Type 2 diabetes mellitus with diabetic chronic kidney disease Qualifiers: Diabetes mellitus parts counterman insulin use: with longterm use Chronic kidney disease stage: stage 3 (moderate) Chronic kidney disease stage 3 subtype : stage 3b (GFR 30-44) Qualified Code(s): E11.22 - Type 2 diabetes mellitus with diabetic chronic kidney disease; N18.32 - Chronic kidney disease, stage 3b; Z79.4 - terminal manager (current) use of insulin Plan: Increase long-acting insulin from 40-42 units once a day. A1c goal is equal or less than 7%. (3) Essential hypertension: Code(s): I10 - Essential (primary) hypertension Plan: Continue lisinopril. Blood pressure goal is equal or less than 130/80. (4) Secondary hyperparathyroidism: Code(s): N25.81 - Secondary hyperparathyroidism of renal origin Plan: Follow-up with nephrology. (5) Hyperlipidemia LDL goal <70: Code(s): E78.5 - Hyperlipidemia, unspecified Plan: Continue statins. LDL goal is less than 70. Orders: Orders Lipid Panel 4 Months E78.5 - Hyperlipidemia, unspecified Complete Blood Count Auto Diff 4 Months D64.9 - Anemia, unspecified IRON PROFILE 4 Months D64.9 - Anemia, unspecified AMB Hemoglobin A1c Today E11.22 - Type 2 diabetes mellitus with diabetic chronic kidney disease, N18.32 - Chronic kidney disease, stage 3b, Z79.4 - senior care (current) use of insulin Microalbumin, Random (w Creat) 4 Months E11.9 - Type 2 diabetes mellitus without complications Vitamin D 25-OH Total 4 Months E55.9 - Vitamin D deficiency, unspecified Comprehensive [place]. Panel Fast 4 Months N18.30 - Chronic kidney disease, stage 3 unspecified Medications: Changed From insulin degludec (Tresiba FlexTouch U-100 insulin) 40 units (0.4 mL) subcut BEDTIME 90 days 36 mL 1RF E11.22 - Type 2 diabetes mellitus with diabetic chronic kidney disease, N18.32 - Chronic kidney disease, stage 3b, Z79.4 - terminal manager (current) use of insulin To insulin degludec (Tresiba FlexTouch U-100 insulin) 42 units (0.42 mL) subcut BEDTIME 90 days 37.8 mL 1RF E11.22 - Type 2 diabetes mellitus with diabetic chronic kidney disease, N18.32 - Chronic kidney disease, stage 3b, Z79.4 - senior care (current) use of insulin Coding Level of Care Code Est Pt Level 4 (58299) Complex EM visit Add On G2211 Diagnoses Stage 3b chronic kidney disease N18.32 Chronic kidney disease stage 3 subtype: stage 3b (GFR 30-44) Type 2 diabetes mellitus with stage 3b chronic kidney disease, with long-term current use of insulin E11.22; N18.32; Z79.4 Diabetes mellitus longterm insulin use: with parts counterman use Chronic kidney disease stage: stage 3 (moderate) Chronic kidney disease stage 3 subtype: stage 3b (GFR 30-44) Essential hypertension I10 Secondary hyperparathyroidism N25.81 Hyperlipidemia LDL goal <70 E78.5 Time Spent (min) 23
[2023-08-14 10:40] VITALS: BP 110/62; BMI 29.5
== END 2023-08-14 11:04 | disposition home or self-care (01) ==
PROVIDERS: PCP Internal Medicine; Visit Provider Internal Medicine
DX: I12.9 Hypertensive chronic kidney disease with stage 1 through stage 4 chronic kidney disease, or unspecified chronic kidney disease (principal); E11.22 Type 2 diabetes mellitus with diabetic chronic kidney disease; N18.4 Chronic kidney disease, stage 4 (severe); Z79.4 Long term (current) use of insulin; N25.81 Secondary hyperparathyroidism of renal origin; E78.5 Hyperlipidemia, unspecified
CPT/HCPCS: 83036; 99214; G2211

== ENCOUNTER 2023-10-17 15:06 | Outpatient (AMB) | payer MEDICARE, SELFPAY ==
[2023-10-17 15:08] VITALS: BP 104/54; PULSE 76; O2SAT 98; BMI 29.9
--- NOTE | 2023-10-17 15:08 | HO.NEPHOV ---
Vital Signs 10/17/23 15:08 Height 5 ft 1 in Weight 158 lb BMI 29.9 BP 104/54 L Blood Pressure Location Lt brachial Position Sitting Pulse 76 Pulse Source Pulse Oximeter Pulse Oximetry (%) 98 Oxygen Delivery Method Room Air Intake Visit Reasons: Anemia/ Shannan/ Exploitation Analyst Required: No Accompanied by: Self / Same As Patient Allergies atorvastatin Allergy (Intermediate, Verified 10/17/23 15:10) myalgias ibuprofen Allergy (Intermediate, Verified 10/17/23 15:10) contraindicated due to kidneys insulin aspart Allergy (Intermediate, Verified 10/17/23 15:10) swelling in legs pioglitazone Allergy (Intermediate, Verified 10/17/23 15:10) face swelling pollen extracts [POLLEN] Allergy (Intermediate, Verified 10/17/23 15:10) ITCHY,SNEEZING, RUNNY NOSE Medication List - Last Reconciled 10/17/23 by Jorge Bradley MD aspirin (Adult Aspirin Regimen) 81 mg PO DAILY blood sugar diagnostic (OneTouch Ultra Test strips) As directed four times a day blood-glucose meter (Accu-Chek Guide Glucose Meter) As directed blood-glucose meter (OneTouch Ultra2 Meter) As directed cholecalciferol (vitamin D3) 50 mcg PO DAILY 90 days flash glucose scanning reader (FreeStyle Jackson 2 [place]) As directed flash glucose sensor (FreeStyle Jackson 2 Sensor kit) As directed every 2 weeks insulin degludec (Tresiba FlexTouch U-100 insulin) 42 units (0.42 mL) subcut BEDTIME 90 days lancets As directed lisinopril 2.5 mg PO DAILY 90 days loratadine 10 mg PO DAILY 90 days metoprolol succinate ER 25 mg PO DAILY omeprazole 20 mg PO DAILY 90 days pen needle, diabetic Use 1 needle8 four times a day rosuvastatin 40 mg PO DAILY 90 days semaglutide (Ozempic) 1 mg (0.75 mL) subcut QWEEK 90 days HPI Comments Details: 73-year-old female with diabetes mellitus type 2 on long-term current use of insulin, chronic kidney disease stage 3, hyperlipidemia, chronic GERD and vitamin-D deficiency that comes today for follow-up on her conditions. A1c slightly elevated and she is compliant with her medications. Blood pressure stable. GFR has not significantly changed and this is follow by Nephrology. LDL within goal. GERD stable with PPIs. Vitamin-D is low and supplement will be sent. Diabetic eye exam done November 2022. No chest pain shortness on breath. On ozempic and lost weight Feels better [facility] Medical History Murmur Vitamin D deficiency Secondary hyperparathyroidism Osteoarthritis of right shoulder Right shoulder pain Hearing loss Exposure to COVID-19 virus Anemia Obesity due to excess calories Tubular adenoma of colon Heart murmur Migraines Low vitamin B12 level Fatty liver GERD (gastroesophageal reflux disease) Type 2 diabetes mellitus with chronic kidney disease Chronic kidney disease, stage 4 (severe) Hyperlipidemia LDL goal <100 Essential hypertension Surgical History Hx of colonoscopy History of eye surgery H/O excision of ganglion cyst History of tubal ligation History of laparoscopic cholecystectomy Family History Mother Diabetes Heart disease Hypertension Dementia Brother Diabetes Heart disease Sister Diabetes Father Substance use disorder Social History Household Members: None Housing: Apartment Are you a primary care mgr to a significant other at home: No Alcohol intake: never Patient Tobacco Use Status: Never used Tobacco e-Cigarette/Vaping Use: Never Used Second Hand Smoke Exposure: No service: No Current occupational status: unemployed and retired Current occupational exposures/hazards: No Cognitive needs: No Hearing needs: No Vision needs: Yes Physical Exam Vital Signs: Last Vital Signs Pulse 76 10/17/23 15:08 BP 104/54 L 10/17/23 15:08 Pulse Ox 98 10/17/23 15:08 Oxygen Delivery Method Room Air 10/17/23 15:08 BMI result Body Mass Index 29.9 Const General: no acute distress and alert Orientation/consciousness: patient oriented x3 HEENT Head: Yes normocephalic and Yes atraumatic Eyes Sclerae: sclerae normal Pupils: Equal, round and reactive pupils present EOM: EOMs intact bilaterally Neck Neck: Yes no lymphadenopathy, Yes trachea midline and Yes no JVD Thyroid: Thyroid normal Resp Effort & Inspection: normal respiratory effort Auscultation: clear to auscultation bilaterally Cardio Rate: regular rate Rhythm: regular rhythm Heart sounds: S1 normal heart sound present and S2 normal heart sound present Peripheral pulses: Peripheral pulses 2+ throughout GI Inspection: Yes normal to inspection and No distended Auscultation: normal bowel sounds Skin Other: No acanthosis nigricans or diabetic dermopathy General skin exam: no rashes or lesions noted Neuro General: patient oriented x3 and gait normal Cranial nerves: Yes Equal, round and reactive pupils present Deep tendon reflexes (DTR's): Rt Biceps (C5, C6): 2+, Left biceps reflex intensity grade: 2+, Right patellar reflex intensity grade: 2+ and Left patellar reflex intensity grade: 2+ Extrem Other: Visual foot exam: No wounds, no onychomycosis, no dry skin, no calluses General: Yes normal gait, No clubbing, No cyanosis and No edema Psych Affect: normal affect Attitude: cooperative Results Reviewed Nephrology Results: Hgb 10.1 g/dl (12.0-16.0) L 08/09/23 WBC 4.9 X10*3/uL (4.8-10.8) 08/09/23 Plt Count 208 X10*3/uL (160-400) 08/09/23 Sodium 142 mmol/L (135-145) 08/09/23 Potassium 4.7 mmol/L (3.3-5.1) 08/09/23 Chloride 109 mmol/L (96-108) H 08/09/23 Carbon Dioxide 24 mmol/L (22-29) 08/09/23 BUN 18 mg/dL (9-16) H 08/09/23 Creatinine 1.54 mg/dL (0.5-1.4) H 08/09/23 Calcium 9.6 mg/dL (8.4-10.2) 08/09/23 Urine Creatinine 159.57 mg/dL 08/09/23 Assessment & Plan Assessment & Plan (1) CKD (chronic kidney disease) stage 3, GFR 30-59 ml/min: Code(s): N18.30 - Chronic kidney disease, stage 3 unspecified Category: Medical Qualifiers: Chronic kidney disease stage 3 subtype: stage 3b (GFR 30-44) Qualified Code(s): N18.32 - Chronic kidney disease, stage 3b Plan: In a setting of HTN and DM Creatinine is stable Will benefit from SGLT-2 inhibitors (2) Anemia: Code(s): D64.9 - Anemia, unspecified Category: Medical Plan: Multifactorial Stable No need for EPO yet (3) Type 2 diabetes mellitus with chronic kidney disease: Code(s): E11.22 - Type 2 diabetes mellitus with diabetic chronic kidney disease Category: Medical Qualifiers: Diabetes mellitus half-way insulin use: with national sales director use Chronic kidney disease stage: stage 3 (moderate) Chronic kidney disease stage 3 subtype: stage 3b (GFR 30-44) Qualified Code(s): E11.22 - Type 2 diabetes mellitus with diabetic chronic kidney disease; N18.32 - Chronic kidney disease, stage 3b; Z79.4 - mobile home servicer (current) use of insulin Plan: Goal A1C < 7% (4) Essential hypertension: Code(s): I10 - Essential (primary) hypertension Category: Medical Plan: BP well controlled Keep SBP < 130 Avoid hypotension Stay on low salt diet Orders: Orders Basic Metabolic Panel 3 Months N18.32 - Chronic kidney disease, stage 3b Coding Level of Care Code Est Pt Level 3 (27870) Diagnoses Stage 3b chronic kidney disease N18.32 Chronic kidney disease stage 3 subtype: stage 3b (GFR 30-44) Anemia D64.9 Type 2 diabetes mellitus with stage 3b chronic kidney disease, with long-term current use of insulin E11.22; N18.32; Z79.4 Diabetes mellitus half-way insulin use: with half-way use Chronic kidney disease stage: stage 3 (moderate) Chronic kidney disease stage 3 subtype: stage 3b (GFR 30-44) Essential hypertension I10
== END 2023-10-17 15:18 | disposition home or self-care (01) ==
PROVIDERS: PCP Internal Medicine; Visit Provider Internal Medicine Hypertension Specialist
DX: E11.22 Type 2 diabetes mellitus with diabetic chronic kidney disease (principal); N18.32 Chronic kidney disease, stage 3b; D64.9 Anemia, unspecified; Z79.4 Long term (current) use of insulin; I10 Essential (primary) hypertension
CPT/HCPCS: 99213

== ENCOUNTER → 2023-10-17 15:06 | Outpatient (BNVA) | payer MEDICARE, SELFPAY | PROVIDERS: PCP Internal Medicine; Visit Provider Internal Medicine Hypertension Specialist | DX: E11.22 Type 2 diabetes mellitus with diabetic chronic kidney disease (principal); I12.9 Hypertensive chronic kidney disease with stage 1 through stage 4 chronic kidney disease, or unspecified chronic kidney disease; D63.1 Anemia in chronic kidney disease; N18.32 Chronic kidney disease, stage 3b; E78.5 Hyperlipidemia, unspecified; E55.9 Vitamin D deficiency, unspecified; Z79.4 Long term (current) use of insulin | CPT/HCPCS: 99212 ==

== ENCOUNTER 2023-11-27 07:09 | Outpatient (REF) | payer MEDICARE, SELFPAY ==
[2023-11-27 07:43] LABS: MANUAL DIFF FLAG NO
[2023-11-27 08:17] LABS: Basophils Percent Auto 0.8 % (0-2); Eosinophils Absolute Auto 0.2 X10*3/uL (0.0-0.4); Eosinophils Percent Auto 3.7 % (0-4); Hematocrit 33.5 % (37.0-47.0); Hemoglobin 10.7 g/dl (12.0-16.0); Imm Gran Abs Auto 0.01 X10*3/uL (0.00-0.03); Imm Gran Pct Auto 0.2 % (0.0-0.4); Lymphocytes Absolute Auto 1.8 X10*3/uL (1.2-4.9); Lymphocytes Percent Auto 37.5 % (20-40); Mean Corpuscular HGB Conc 31.9 g/dl (31.0-35.0); Mean Corpuscular Hemoglobin 28.2 pg (27.0-33.0); Mean Corpuscular Volume 88.2 fL (80.0-98.0); Mean Platelet Volume 10.3 fL (9.4-12.3); Monocytes Absolute Auto 0.5 X10*3/uL (0.1-1.2); Monocytes Percent Auto 9.8 % (2-11); Neutrophils Absolute Auto 2.4 x10*3/uL (2.0-8.3); Platelet Count 216 X10*3/uL (160-400); Red Cell Distribution Width 13.5 % (11.0-16.0); White Blood Count 4.9 X10*3/uL (4.8-10.8)
[2023-11-27 08:44] LABS: Creatinine Urine 235.63 mg/dL; Microalbum/Creatinine Ratio Ur 78.9 ug/mg cr (<30)
[2023-11-27 08:45] LABS: Alanine Aminotransferase 17 U/L (0-31); Albumin Level 4.3 g/dL (3.5-5.0); Alkaline Phosphatase 91 U/L (39-117); Anion Gap 15 (12-20); Aspartate Amino Transferase 27 U/L (5-31); Bilirubin Total 0.7 mg/dL (0.0-1.0); Blood Urea Nitrogen 21 mg/dL (9-16); Calcium 9.9 mg/dL (8.4-10.2); Carbon Dioxide 24 mmol/L (22-29); Chloride 108 mmol/L (96-108); Cholesterol 120 mg/dL (<200); Estimated Glomerular Filt Rate 28; Glucose Fasting 171 mg/dL (60-99); HDL Cholesterol 47 mg/dL (>40); Iron 63 mcg/dL (30-160); LDL Cholesterol Calculated 47 mg/dL (<100); Percent Iron Saturation 16 % (15-50); Sodium 142 mmol/L (135-145); Total Iron Binding Capacity 387 mcg/dL (228-428); Total Protein 8.1 g/dL (6.5-8.0); Triglycerides 134 mg/dL (<150); Unsaturated Iron Binding 324 ug/dL
[2023-11-27 09:04] LABS: Vitamin D 25-OH Total 29.1 ng/mL (>30)
== END 2023-11-27 07:10 | disposition home or self-care (01) ==
LOC: HO.LAB 07:09
PROVIDERS: PCP Internal Medicine; Visit Provider Internal Medicine
DX: D64.9 Anemia, unspecified (principal); E55.9 Vitamin D deficiency, unspecified; N18.30 Chronic kidney disease, stage 3 unspecified; E78.5 Hyperlipidemia, unspecified; E11.22 Type 2 diabetes mellitus with diabetic chronic kidney disease
CPT/HCPCS: 36415; 80053; 80061; 82043; 82306; 82570; 83540; 85025

== ENCOUNTER 2023-12-03 12:54 | Outpatient (AMB) | payer MEDICARE, SELFPAY ==
[2023-12-03 12:57] VITALS: BP 110/64; BMI 29.9
--- NOTE | 2023-12-03 12:57 | MHC.PC.OV ---
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 Required: No Accompanied by: Self / Same As Patient Allergies atorvastatin Allergy (Intermediate, Verified 12/03/23 13:19) myalgias ibuprofen Allergy (Intermediate, Verified 12/03/23 13:19) contraindicated due to kidneys insulin aspart Allergy (Intermediate, Verified 12/03/23 13:19) swelling in legs pioglitazone Allergy (Intermediate, Verified 12/03/23 13:19) face swelling pollen extracts [POLLEN] Allergy (Intermediate, Verified 12/03/23 13:19) ITCHY,SNEEZING, RUNNY NOSE Medication List - Last Reconciled 12/03/23 by Larisa Mari MD aspirin (Adult Aspirin Regimen) 81 mg PO DAILY blood sugar diagnostic (OneTouch Ultra Test strips) As directed four times a day blood-glucose meter (Accu-Chek Guide Glucose Meter) As directed blood-glucose meter (Flight[employer] Ultra2 Meter) As directed cholecalciferol (vitamin D3) 50 mcg PO DAILY 90 days flash glucose scanning reader (FreeStyle Jackson 2 Witten) As directed flash glucose sensor (FreeStyle Jackson 2 Sensor kit) As directed every 2 weeks insulin degludec (Tresiba FlexTouch U-100 insulin) 42 units (0.42 mL) subcut BEDTIME 90 days lancets As directed lisinopril 2.5 mg PO DAILY 90 days loratadine 10 mg PO DAILY 90 days metoprolol succinate ER 25 mg PO DAILY omeprazole 20 mg PO DAILY 90 days pen needle, diabetic Use 1 needle8 four times a day rosuvastatin 40 mg PO DAILY 90 days semaglutide (Ozempic) 1 mg (0.75 mL) subcut QWEEK 90 days semaglutide (Ozempic) 2 mg (0.75 mL) subcut QWEEK 4 weeks Tobacco use date assessed: 04/02/23 Fall risk assessment: No Falls in past year Last assessed Fall Risk: 12/03/23 Dental Screening Dental Screen Date: 12/03/23 Did you have a dental visit in the last 12 months?: No Did you have a dental problem in the last 6 months where you did not have access to dental care?: No Was dental information given to patient?: Patient has dentist HPI HPI Comments History of Present Illness Details This is a 73-year-old female with diabetes mellitus type 2 on long-term current use of insulin and chronic kidney disease stage 4 that comes for her physical exam. A1c elevated and I will increase insulin. She just started Ozempic 2 mg last week. Diabetic eye exam was less than a year ago and was normal. Last GFR was 28 and she follows with Nephrology. Mammogram done 2023 was normal. Colonoscopy done 2023. No need for Pap smear due to age. No chest pain or shortness on breath. [facility] Medical History (Updated 12/03/23 @ 15:46 by Larisa Mari MD) Chronic kidney disease, stage 4 (severe) CKD (chronic kidney disease) stage 3, GFR 30-59 ml/min Murmur Vitamin D deficiency Secondary hyperparathyroidism Osteoarthritis of right shoulder Right shoulder pain Hearing loss Exposure to COVID-19 virus Anemia Obesity due to excess calories Tubular adenoma of colon Heart murmur Migraines Low vitamin B12 level Fatty liver GERD (gastroesophageal reflux disease) Type 2 diabetes mellitus with chronic kidney disease Hyperlipidemia LDL goal <100 Essential hypertension Surgical History Hx of colonoscopy History of eye surgery H/O excision of ganglion cyst History of tubal ligation History of laparoscopic cholecystectomy Family History (Updated 12/03/23 @ 13:28 by Larisa Mari MD) Mother Diabetes Heart disease Hypertension Dementia Brother Diabetes Heart disease Sister Diabetes Father Substance use disorder Social History Household Members: None Housing: Apartment Are you a primary rn acute care to a significant other at home: No Alcohol intake: never Patient Tobacco Use Status: Never used Tobacco e-Cigarette/Vaping Use: Never Used Second Hand Smoke Exposure: No service: No Current occupational status: unemployed and retired Current occupational exposures/hazards: No Cognitive needs: No Hearing needs: No Vision needs: Yes Questionnaire PHQ-9 Over the last 2 weeks, how often have you been bothered by any of the following problems? 1. Little interest or pleasure in doing things: not at all 2. Feeling down, depressed, or hopeless: not at all 3. Trouble falling or staying asleep, or sleeping too much: not at all 4. Feeling tired or having little energy: not at all 5. Poor appetite or overeating: not at all 6. Feeling bad about yourself - or that you are a failure or have let yourself or your family down: not at all 7. Trouble concentrating on things, such as reading the newspaper or watching television: not at all 8. Moving or speaking so slowly that other people could have noticed. Or the opposite - being so fidgety or restless that you have been moving around a lot more than usual: not at all 9. Thoughts that you would be better off or of hurting yourself in some way: not at all Total score: 0 Depression Screening Interpretation: Negative Depression Screening Done: Yes 40288 - PHQ-9 Billing: Yes Source: Developed by Drs. Rashard Grove, Olga Mittal, Wil Prince and colleagues, with an educational chel from [employer]. Thrive Questionnaire Date Thrive assessed: 12/03/23 I am a: Patient What is your living situation today?: I have a steady place to live Within the past 12 months, did the food you bought not last and you didn't have the money to get more?: I choose not to answer this question Within the past 12 months, did you worry whether your food would run out before you got money to buy more?: I choose not to answer this question Do you have trouble paying for medicines?: No Do you have trouble getting transportation to medical appointments?: No Do you have trouble paying your heating and electricity bill?: No Do you have trouble taking care of your child, family member or friend?: No Do you have trouble with day-to-day activities such as bathing, preparing meals, shopping, managing finances, etc.?: No Are you currently unemployed and looking for a job?: No Are you interested in more education?: No Please select the resources that you would like help with: None Currently or been in a relationship where the following occur: No concerns reported THRIVE Score: 0 AUDIT C Alcohol Use Questionnaire (AUDIT-C) 1. How often do you have a drink containing alcohol?: Never Total Score: 0 Score Reviewed/Action Taken: No ANA MARIA-7 AMB Questionnaire ANA MARIA-7 Date ANA MARIA - 7 assessed: 04/02/23 Feeling nervous, anxious, or on edge: 0 = Not at all Not being able to stop or control worryin = Not at all Worrying too much about different things: 0 = Not at all Trouble relaxin = Not at all Being so restless that it is hard to sit still: 0 = Not at all Becoming easily annoyed or irritable: 0 = Not at all Feeling afraid as if something awful might happen: 0 = Not at all Total ANA MARIA-7 score (0-4 normal; 5-9 mild; 10-14 moderate; 15-21 severe): 0 Source: Developed by Drs. Rashard Grove, Olga Mittal, Wil Prince and colleagues, with an educational chel from [employer]. ANA MARIA-7 Assessment Billing ANA MARIA-7 Assessment Tool: ANA MARIA-7 Assessment 03761 Review of Systems Const All systems reviewed & are unremarkable except as noted in HPI and below Card Denies chest pain at rest, Denies chest pain with activity, Denies edema, Denies irregular heart rhythm, Denies claudication, Denies dyspnea, Denies dyspnea on exertion, Denies orthopnea, Denies paroxysmal nocturnal dyspnea and Denies slow heart rate Resp Denies cough, Denies dyspnea and Denies dyspnea on exertion GI Denies abdominal pain, Denies change in bowel habits, Denies excessive flatus, Denies nausea and Denies vomiting Denies urinary incontinence, Denies urinary hesitancy and Denies urinary urgency Musc Denies abnormal gait, Denies atrophy, Denies deformity and Denies limited range of motion Skin/Breast Denies bleeding lesions, Denies changing lesions and Denies rash Neuro Denies abnormal gait, Denies behavioral changes and Denies lack of coordination Psych Denies behavioral changes Physical exam (Primary Care) Vital Signs: Last Vital Signs BP 110/64 12/03/23 12:57 BMI result Body Mass Index 29.9 Tobacco/Smoking Status: Tobacco use Status Tobacco use date assessed 04/02/23 12/03/23 13:04 Patient Tobacco Use Status Never used Tobacco 12/03/23 13:04 Tobacco use type 11/23/21 09:03 e-Cigarette/Vaping Use Never Used 12/03/23 13:04 PHQ-9: PHQ-9 Score PHQ-9: Total score 0 12/03/23 15:32 Depression Screening Interpretation: Negative Thrive Assessment: Date of Thrive Assessment Date Thrive assessed 12/03/23 12/03/23 13:04 Currently or been in a relationship where the following occur: No concerns reported [facility] Head: Yes normal to inspection, Yes normocephalic and Yes atraumatic Ears: external ears normal Eyes General: appearance normal, both eyes and all related structures Eyelids: Yes eyelids normal Conjunctivae: conjunctivae normal Neck Neck: Yes normal visual inspection and Yes supple Resp Effort & Inspection: normal respiratory effort Auscultation: clear to auscultation bilaterally Cardio Jugular venous distension: no JVD Rate: regular rate Rhythm: regular rhythm Heart sounds: S1 normal heart sound present and S2 normal heart sound present GI Inspection: Yes normal to inspection Palpation (GI): Soft to palpation and nontender Auscultation: normal bowel sounds Skin General skin exam: no rashes or lesions noted Neuro General: no focal motor deficits Extrem General: Yes full ROM Psych Appearance: grossly normal Office Procedures Flu Questionnaire Does the patient have a severe egg allergy?: No Results AMB Hemoglobin A1c AMB Hemoglobin A1c 7.8 % Last Edit by KELSIE Barber on 12/03/23 13:12 Immunizations Fluarix Triv [id number] (PF) 45 mcg (15 mcg x 3)/0.5 mL IM syringe Performing Provider: Larisa Mari MD Per[facility] [place] Documented (not given) by: KELSIE Barber on 12/03/23 13:04 Reason Not Given: Patient Refused Results Reviewed Results Reviewed: Laboratory Last Values Hgb A1c (Clinic) 7.8 % (4.0-6.0) H 12/03/23 12:56 Coding Level of Care Code Est Pt Prev Care >65y(34436) Diagnoses Physical exam Z00.00 Type 2 diabetes mellitus with stage 3b chronic kidney disease, with long-term current use of insulin E11.22; N18.32; Z79.4 Diabetes mellitus chcf insulin use: with chcf use Chronic kidney disease stage: stage 3 (moderate) Chronic kidney disease stage 3 subtype: stage 3b (GFR 30-44) Chronic kidney disease, stage 4 (severe) N18.4 Additional Codes ANA MARIA-7 Assessment Billing - ANA MARIA-7 Assessment Tool: ANA MARIA-7 Assessment 74413 ([id number]) Time Spent (min) 32 Assessment & Plan Assessment & Plan (1) Physical exam: Code(s): Z00.00 - Encounter for general adult medical examination without abnormal findings Category: Medical Plan: Repeat in a year. (2) Type 2 diabetes mellitus with chronic kidney disease: Code(s): E11.22 - Type 2 diabetes mellitus with diabetic chronic kidney disease Category: Medical Qualifiers: Diabetes mellitus superintendent terminal insulin use: with superintendent terminal use Chronic kidney disease stage: stage 3 (moderate) Chronic kidney disease stage 3 subtype: stage 3b (GFR 30-44) Qualified Code(s): E11.22 - Type 2 diabetes mellitus with diabetic chronic kidney disease; N18.32 - Chronic kidney disease, stage 3b; Z79.4 - ocean transportation intermediary (current) use of insulin Plan: Continue Ozempic. Increase insulin. A1c goal is equal or less than 7%. (3) Chronic kidney disease, stage 4 (severe): Code(s): N18.4 - Chronic kidney disease, stage 4 (severe) Category: Medical Plan: Avoid NSAIDs. Follow-up with nephrology. Keep blood pressure less than 130/80. Orders: Orders Influenza [id number] Immunization Today Z23 - Encounter for immunization AMB Hemoglobin A1c Today E11.22 - Type 2 diabetes mellitus with diabetic chronic kidney disease, N18.32 - Chronic kidney disease, stage 3b, Z79.4 - halfway (current) use of insulin Lipid Panel 4 Months E78.5 - Hyperlipidemia, unspecified Microalbumin, Random (w Creat) 4 Months R80.9 - Proteinuria, unspecified Vitamin D 25-OH Total 4 Months E55.9 - Vitamin D deficiency, unspecified Comprehensive [place]. Panel Fast 4 Months N18.32 - Chronic kidney disease, stage 3b Medications: Changed From insulin degludec (Tresiba FlexTouch U-100 insulin) 42 units (0.42 mL) subcut BEDTIME 90 days 37.8 mL 1RF E11.22 - Type 2 diabetes mellitus with diabetic chronic kidney disease, N18.32 - Chronic kidney disease, stage 3b, Z79.4 - ocean transportation intermediary (current) use of insulin To insulin degludec (Tresiba FlexTouch U-100 insulin) 45 units (0.45 mL) subcut BEDTIME 90 days 40.5 mL 1RF E11.22 - Type 2 diabetes mellitus with diabetic chronic kidney disease, N18.32 - Chronic kidney disease, stage 3b, Z79.4 - ocean transportation intermediary (current) use of insulin Discontinued semaglutide (Ozempic) Discontinued Reason: Patient Completed Course 1 mg (0.75 mL) subcut QWEEK 90 days 9.75 mL 0RF E11.22 - Type 2 diabetes mellitus with diabetic chronic kidney disease, N18.32 - Chronic kidney disease, stage 3b, Z79.4 - ocean transportation intermediary (current) use of insulin
== END 2023-12-03 13:36 | disposition home or self-care (01) ==
PROVIDERS: PCP Internal Medicine; Visit Provider Internal Medicine
DX: Z00.00 Encounter for general adult medical examination without abnormal findings (principal); E11.22 Type 2 diabetes mellitus with diabetic chronic kidney disease; N18.32 Chronic kidney disease, stage 3b; Z79.4 Long term (current) use of insulin; N18.4 Chronic kidney disease, stage 4 (severe); Z23 Encounter for immunization

== ENCOUNTER → 2023-12-03 12:54 | Outpatient (BNVA) | payer MEDICARE, SELFPAY | PROVIDERS: PCP Internal Medicine; Visit Provider Internal Medicine | DX: Z00.00 Encounter for general adult medical examination without abnormal findings (principal); I12.9 Hypertensive chronic kidney disease with stage 1 through stage 4 chronic kidney disease, or unspecified chronic kidney disease; E11.22 Type 2 diabetes mellitus with diabetic chronic kidney disease; N18.4 Chronic kidney disease, stage 4 (severe); Z79.4 Long term (current) use of insulin | CPT/HCPCS: 83036; 90471; 96127; 99397 ==

== ENCOUNTER 2024-02-10 07:01 | Outpatient (REF) | payer MEDICARE, SELFPAY ==
[2024-02-10 07:37] LABS: Anion Gap 15 (12-20); Blood Urea Nitrogen 19 mg/dL (9-16); Calcium 9.7 mg/dL (8.4-10.2); Carbon Dioxide 24 mmol/L (22-29); Chloride 108 mmol/L (96-108); Estimated Glomerular Filt Rate 26; Glucose Random 178 mg/dL (60-115); Potassium 4.6 mmol/L (3.3-5.1); Sodium 142 mmol/L (135-145)
== END 2024-02-10 07:02 | disposition home or self-care (01) ==
LOC: HO.LAB 07:01
PROVIDERS: PCP Internal Medicine; Visit Provider Internal Medicine Hypertension Specialist
DX: N18.32 Chronic kidney disease, stage 3b (principal)
CPT/HCPCS: 36415; 80048

== ENCOUNTER 2024-02-11 13:18 | Outpatient (AMB) | payer MEDICARE, SELFPAY ==
--- NOTE | 2024-02-11 13:20 | HO.NEPHOV_ITS ---
Vital Signs 02/11/24 13:21 Height 5 ft 1 in Weight 156 lb BMI 29.5 BP 98/50 L Blood Pressure Location Lt brachial Position Sitting Pulse 94 Pulse Source Pulse Oximeter Pulse Oximetry (%) 96 Oxygen Delivery Method Room Air Intake Visit Reasons: 4 mon follow up/ Conf Bar Staff Required: No Accompanied by: Self / Same As Patient Allergies atorvastatin Allergy (Intermediate, Verified 02/11/24 13:26) myalgias ibuprofen Allergy (Intermediate, Verified 02/11/24 13:26) contraindicated due to kidneys insulin aspart Allergy (Intermediate, Verified 02/11/24 13:26) swelling in legs pioglitazone Allergy (Intermediate, Verified 02/11/24 13:26) face swelling pollen extracts [POLLEN] Allergy (Intermediate, Verified 02/11/24 13:26) ITCHY,SNEEZING, RUNNY NOSE Medication List - Last Reconciled 02/11/24 by Jorge Bradley MD aspirin (Adult Aspirin Regimen) 81 mg PO DAILY blood sugar diagnostic (OneTouch Ultra Test strips) As directed four times a day blood-glucose meter (Accu-Chek Guide Glucose Meter) As directed blood-glucose meter (OneTouch Ultra2 Meter) As directed cholecalciferol (vitamin D3) 50 mcg PO DAILY 90 days flash glucose scanning reader (FreeStyle Jackson 2 Novice) As directed flash glucose sensor (FreeStyle Jackson 2 Sensor kit) As directed every 2 weeks insulin degludec (Tresiba FlexTouch U-100 insulin) 45 units (0.45 mL) subcut BEDTIME 90 days lancets As directed lisinopril 2.5 mg PO DAILY 90 days loratadine 10 mg PO DAILY 90 days metoprolol succinate ER 25 mg PO DAILY omeprazole 20 mg PO DAILY 90 days pen needle, diabetic Use 1 needle8 four times a day rosuvastatin 40 mg PO DAILY 90 days semaglutide (Ozempic) 2 mg (0.75 mL) subcut QWEEK 4 weeks HPI Comments Details: 73-year-old female with diabetes mellitus type 2 on long-term current use of insulin, chronic kidney disease stage 3, hyperlipidemia, chronic GERD and vitamin-D deficiency that comes today for follow-up on her conditions. A1c slightly elevated and she is compliant with her medications. Blood pressure stable. GFR has not significantly changed and this is follow by Nephrology. LDL within goal. GERD stable with PPIs. Vitamin-D is low and supplement will be sent. Diabetic eye exam done November 2022. No chest pain shortness on breath. On ozempic and lost weight Feels better [facility] Medical History (Updated 02/11/24 @ 13:34 by Jorge Bradley MD) Chronic kidney disease, stage 4 (severe) CKD (chronic kidney disease) stage 3, GFR 30-59 ml/min Murmur Vitamin D deficiency Secondary hyperparathyroidism Osteoarthritis of right shoulder Right shoulder pain Hearing loss Exposure to COVID-19 virus Anemia Obesity due to excess calories Tubular adenoma of colon Heart murmur Migraines Low vitamin B12 level Fatty liver GERD (gastroesophageal reflux disease) Type 2 diabetes mellitus with chronic kidney disease Hyperlipidemia LDL goal <100 Essential hypertension Surgical History Hx of colonoscopy History of eye surgery H/O excision of ganglion cyst History of tubal ligation History of laparoscopic cholecystectomy Family History Mother Diabetes Heart disease Hypertension Dementia Brother Diabetes Heart disease Sister Diabetes Father Substance use disorder Social History Household Members: None Housing: Apartment Are you a primary health care sanitary technician to a significant other at home: No Alcohol intake: never Patient Tobacco Use Status: Never used Tobacco e-Cigarette/Vaping Use: Never Used Second Hand Smoke Exposure: No service: No Current occupational status: unemployed and retired Current occupational exposures/hazards: No Cognitive needs: No Hearing needs: No Vision needs: Yes Physical Exam Vital Signs: Last Vital Signs Pulse 94 02/11/24 13:21 BP 98/50 L 02/11/24 13:21 Pulse Ox 96 02/11/24 13:21 Oxygen Delivery Method Room Air 02/11/24 13:21 BMI result Body Mass Index 29.5 Comfortable Neck supple no JVD. Lungs entry equal no rales. Heart S1-S2 heard no gallop or rub. Abdomen soft nontender. Neuro alert awake oriented. No asterixis. Extremities no edema. Results Reviewed Nephrology Results: Hgb 10.7 g/dl (12.0-16.0) L 11/27/23 WBC 4.9 X10*3/uL (4.8-10.8) 11/27/23 Plt Count 216 X10*3/uL (160-400) 11/27/23 Sodium 142 mmol/L (135-145) 02/10/24 Potassium 4.6 mmol/L (3.3-5.1) 02/10/24 Chloride 108 mmol/L (96-108) 02/10/24 Carbon Dioxide 24 mmol/L (22-29) 02/10/24 BUN 19 mg/dL (9-16) H 02/10/24 Creatinine 1.91 mg/dL (0.5-1.4) H 02/10/24 Calcium 9.7 mg/dL (8.4-10.2) 02/10/24 Urine Creatinine 235.63 mg/dL 11/27/23 Assessment & Plan Assessment & Plan (1) CKD (chronic kidney disease) stage 3, GFR 30-59 ml/min: Comment: Late 3B to early stage 4 Code(s): N18.30 - Chronic kidney disease, stage 3 unspecified Category: Medical Qualifiers: Chronic kidney disease stage 3 subtype: stage 3b (GFR 30-44) Qualified Code(s): N18.32 - Chronic kidney disease, stage 3b Plan: In a setting of HTN and DM Creatinine is slightly up Watch for now Will benefit from SGLT-2 inhibitors (2) Anemia: Code(s): D64.9 - Anemia, unspecified Category: Medical Plan: Multifactorial Stable No need for EPO yet (3) Type 2 diabetes mellitus with chronic kidney disease: Code(s): E11.22 - Type 2 diabetes mellitus with diabetic chronic kidney disease Category: Medical Qualifiers: Chronic kidney disease stage: stage 3 (moderate) Chronic kidney disease stage 3 subtype: stage 3b (GFR 30-44) 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 mellitus equipment operator intermodal yard insulin use: with senior living use Qualified Code(s): E11.22 - Type 2 diabetes mellitus with diabetic chronic kidney disease; N18.32 - Chronic kidney disease, stage 3b; Z79.4 - terminal system operator (current) use of insulin Plan: Goal A1C < 7% (4) Essential hypertension: Code(s): I10 - Essential (primary) hypertension Category: Medical Plan: BP is rather low Keep SBP < 130 Avoid hypotension If SBP Stays below 90, i will stop Lisinopril 2.5 mg Stay on low salt diet Orders: Orders Complete Blood Count no Diff Today N18.4 - Chronic kidney disease, stage 4 (severe) Basic Metabolic Panel 3 Months N18.4 - Chronic kidney disease, stage 4 (severe) Coding Level of Care Code Est Pt Level 4 (73437) Diagnoses Stage 3b chronic kidney disease N18.32 Chronic kidney disease stage 3 subtype: stage 3b (GFR 30-44) Anemia D64.9 Type 2 diabetes mellitus with stage 3b chronic kidney disease, with long-term current use of insulin E11.22; N18.32; Z79.4 Chronic kidney disease stage: stage 3 (moderate) Chronic kidney disease stage 3 subtype: stage 3b (GFR 30-44) Diabetes mellitus equipment operator intermodal yard insulin use: with equipment operator intermodal yard use Essential hypertension I10
[2024-02-11 13:21] VITALS: BP 98/50; PULSE 94; O2SAT 96; BMI 29.5
== END 2024-02-11 13:36 | disposition home or self-care (01) ==
PROVIDERS: PCP Internal Medicine; Visit Provider Internal Medicine Hypertension Specialist
DX: I12.9 Hypertensive chronic kidney disease with stage 1 through stage 4 chronic kidney disease, or unspecified chronic kidney disease (principal); E11.22 Type 2 diabetes mellitus with diabetic chronic kidney disease; N18.32 Chronic kidney disease, stage 3b; D63.1 Anemia in chronic kidney disease; Z79.4 Long term (current) use of insulin
CPT/HCPCS: 99214

== ENCOUNTER → 2024-02-11 13:18 | Outpatient (BNVA) | payer MEDICARE, SELFPAY | PROVIDERS: PCP Internal Medicine; Visit Provider Internal Medicine Hypertension Specialist | DX: E11.22 Type 2 diabetes mellitus with diabetic chronic kidney disease (principal); I12.9 Hypertensive chronic kidney disease with stage 1 through stage 4 chronic kidney disease, or unspecified chronic kidney disease; N18.32 Chronic kidney disease, stage 3b; D64.9 Anemia, unspecified; Z79.84 Long term (current) use of oral hypoglycemic drugs | CPT/HCPCS: 99212 ==

== ENCOUNTER 2024-04-01 07:36 | Outpatient (REF) | payer MEDICARE, SELFPAY ==
--- OUTSIDE RECORDS SUMMARY | 2024-04-01 07:38 | XMS_ITS | Clinical Summary ---
Author Organization [facility] Address [address] [place] [address] [place] [address] Phone Care Team Providers Care Air Brush Artist Name Role Phone Larisa Barry MD Primary Care Provider [phone] Allergies Active Allergy Reactions Criticality Noted Date Comments Atorvastatin 11/28/2020 Ibuprofen 11/28/2020 Insulin Aspart (Human Analog) 2020 Pioglitazone 11/28/2020 Pollen Extract 11/28/2020 Medications aspirin ([facility]) 81 MG EC tablet Take 1 tablet by mouth 1 (one) time each day Active insulin degludec (Tresiba FlexTouch) 100 UNIT/ML injection Inject 28 Units under the skin 1 (one) time each day Active Insulin Lispro, 0.5 Unit Dial, (HumaLOG Jovani KwikPen) 100 UNIT/ML solution pen-injector 8 Units Active lisinopril (PRINIVIL,ZESTR IL) 2.5 MG tablet Take 1 tablet by mouth 1 (one) time each day Active loratadine (CLARITIN) 10 MG tablet Take 1 tablet by mouth 1 (one) time each day Active metoprolol succinate XL (TOPROL-XL) 25 MG 24 hr tablet Take 1 tablet by mouth 1 (one) time each day Active rosuvastatin (CRESTOR) 40 MG tablet Take 1 tablet by mouth 1 (one) time each day Active omeprazole (PriLOSEC) [address] capsule Take 1 capsule by mouth 1 (one) time each day Active Semaglutide,0.2 5 or 0.5MG/DOS, (Ozempic, 0.25 or 0.5 MG/DOSE,) 2 MG/1.5ML solution pen-injector Inject under the skin Active Active Problems Problem Noted Date Diagnosed Date Acute nontraumatic kidney injury 06/09/2020 Allergic rhinitis 06/09/2020 Arthritis 06/09/2020 Diabetes mellitus 06/09/2020 Gastroesophageal reflux disease 06/09/2020 Hypercholesterolemia 06/09/2020 Microalbuminuria 06/09/2020 Renal disorder due to type 2 diabetes mellitus 0 06/09/2020 Vitamin D deficiency 06/09/2020 Family History Medical History Relation Comments Diabetes Mother Heart disease Mother Hypertension Mother Heart disease Sibling 1 brother Hypertension Sibling 2 brother Diabetes Sibling 3 brothers Relation Status Comments Father Mother Alive Sibling 1 Sibling 2 Sibling 3 Social History Tobacco Use Types Packs/Day Years Used Date Smoking Tobacco: Never Smokeless Tobacco: Never Tobacco Cessation:Counseling Given: Not Answered Alcohol Use Standard Drinks/Week Comments No 0 (1 standard drink = 0.6 oz pur e alcohol) Comments Unknown Sex and Gender Information Value Date Recorded Sex Assigned at Not on file Legal Sex Female 4:49 PM EST Gender Identity Not on file Sexual Orientation Not on file Last Filed Vital Signs Vital Sign Reading Time Taken Comments Blood Pressure 102/58 11/15/2022 1:53 PM EDT Pulse 75 11/15/2022 1:53 PM EDT Temperature - - Respiratory Rate - - Oxygen Saturation 96% 11/15/2022 1:53 PM EDT Inhaled Oxygen Concentration - - Weight 72.5 kg (159 lb 12.8 oz) 11/15/2022 1:53 PM EDT Height 154.9 cm (5' 1 ) 11/15/2022 1:53 PM EDT Body Mass Index 30.19 11/15/2022 1:53 PM EDT Plan of Treatment Health Maintenance Due Date Last Done Comments Breast Cancer Screening 1950 Pneumococcal Vaccine: 65+ Ye ars (1 of 2 - PCV) 1957 Colorectal Cancer Screening: Annual FOBT 2000 Colorectal Cancer Screening: Colonoscopy 2000 Colorectal Cancer Screening: Sigmoidoscopy 2000 Diabetes: Hemoglobin A1C 03/27/2020 09/11/2019 Diabetes: Ophthalmology Exam 03/27/2020 Diabetes: Pedal Pulse Checked 03/27/2020 Diabetes: Sensory Foot Exam 03/27/2020 Diabetes: Visual Foot Exam 03/27/2020 Influenza Vaccine (#1) 2023 Hepatitis B Vaccine Aged Out No longe r eligible based on patient's age to complete this topic Procedures Procedure Name Priority Date/Time Associated Diagnosis Comments HEMOGLOBIN A1C Routine 09/11/2019 8:10 AM EDT from Last 3 Months or Most Recently Relevant to Health Maintenance Results * Hemoglobin A1c (09/11/2019 8:10 AM EDT) Hemoglobin A1C 7.1 % [facility] Comment: ?Hemoglobin A1C Reference Range ? Adults: ??4.8 - 6.0 % ? Non diabetic: ??< 6.0 % ? Goal: ??< 7.0 % Additional Action Suggested: ??> 8.0 % Note: ??Hemoglobin A1c results are invalid for patients ? with abnormal amounts of HbF. ??Blood transfusions ? may impact the HbA1c concentration in the patient ? sample. Estimated Average Glucose 157 MG/DL [facility] Comment: eAG = Estimated average glucose which is %A1C expressed as average glucose, using the formula of the [id number]-[id number] Average Glucose study (ADAG), Diabetes Care, Vol.31,#8, Sep. 2007 09/11/2019 8:10 AM EDT us Larisa Hollingsworth NP LAB BLOOD ORDERABLES Final Resul t [place] from Last 3 Months or Most Recently Relevant to Health Maintenance Insurance [facility] DUAL COMPLETE ([id number]) [facility] DUAL [facility]PLE[facility] ([id number]) Care Teams Air Brush Artist Relationship Specialty Start Date End Date Larisa Barry MD [address] [place], [place] PCP - General 03/07/20
[2024-04-01 09:02] LABS: Alanine Aminotransferase 21 U/L (0-31); Albumin Level 4.1 g/dL (3.5-5.0); Alkaline Phosphatase 93 U/L (39-117); Anion Gap 10 (12-20); Aspartate Amino Transferase 36 U/L (5-31); Bilirubin Total 0.5 mg/dL (0.0-1.0); Blood Urea Nitrogen 16 mg/dL (9-16); Calcium 9.3 mg/dL (8.4-10.2); Carbon Dioxide 24 mmol/L (22-29); Chloride 110 mmol/L (96-108); Cholesterol 114 mg/dL (<200); Estimated Glomerular Filt Rate 34; Glucose Fasting 115 mg/dL (60-99); HDL Cholesterol 47 mg/dL (>40); LDL Cholesterol Calculated 42 mg/dL (<100); Potassium 4.3 mmol/L (3.3-5.1); Sodium 140 mmol/L (135-145); Triglycerides 128 mg/dL (<150)
[2024-04-01 09:06] LABS: Creatinine Urine 171.81 mg/dL; Microalbum/Creatinine Ratio Ur 40.7 ug/mg cr (<30)
[2024-04-01 09:20] LABS: Vitamin D 25-OH Total 19.8 ng/mL (>30)
== END 2024-04-01 07:37 | disposition home or self-care (01) ==
LOC: HO.LAB 07:36
PROVIDERS: PCP Internal Medicine; Visit Provider Internal Medicine
DX: E78.5 Hyperlipidemia, unspecified (principal); R80.9 Proteinuria, unspecified; N18.32 Chronic kidney disease, stage 3b; E55.9 Vitamin D deficiency, unspecified
CPT/HCPCS: 36415; 80053; 80061; 82043; 82306; 82570

== ENCOUNTER 2024-06-09 06:47 | Outpatient (REF) | payer MEDICARE, SELFPAY ==
[2024-06-09 07:20] LABS: Hematocrit 31.5 % (37.0-47.0); Hemoglobin 9.6 g/dl (12.0-16.0); Mean Corpuscular HGB Conc 30.5 g/dl (31.0-35.0); Mean Corpuscular Volume 88.5 fL (80.0-98.0); Mean Platelet Volume 9.6 fL (9.4-12.3); Platelet Count 272 X10*3/uL (160-400); Red Blood Count 3.56 X10*6/uL (4.20-5.50); Red Cell Distribution Width 13.3 % (11.0-16.0); White Blood Count 6.1 X10*3/uL (4.8-10.8)
[2024-06-09 07:49] LABS: Anion Gap 12 (12-20); Blood Urea Nitrogen 23 mg/dL (9-16); Calcium 9.6 mg/dL (8.4-10.2); Carbon Dioxide 26 mmol/L (22-29); Chloride 107 mmol/L (96-108); Estimated Glomerular Filt Rate 32; Glucose Random 170 mg/dL (60-115); Potassium 4.9 mmol/L (3.3-5.1); Sodium 140 mmol/L (135-145)
== END 2024-06-09 06:48 | disposition home or self-care (01) ==
LOC: HO.LAB 06:47
PROVIDERS: PCP Internal Medicine; Visit Provider Internal Medicine Hypertension Specialist
DX: N18.4 Chronic kidney disease, stage 4 (severe) (principal)
CPT/HCPCS: 36415; 80048; 85027

== ENCOUNTER 2024-06-11 10:52 | Outpatient (AMB) | payer MEDICARE, SELFPAY ==
[2024-06-11 10:52] VITALS: BP 90/50; PULSE 74; O2SAT 97; BMI 29.3
--- NOTE | 2024-06-11 10:52 | HO.NEPHOV ---
Vital Signs 06/11/24 10:52 Height 5 ft 1 in Weight 155 lb BMI 29.3 BP 90/50 L Blood Pressure Location Rt brachial Position Sitting Pulse 74 Pulse Source Pulse Oximeter Pulse Oximetry (%) 97 Oxygen Delivery Method Room Air Intake Visit Reasons: Anemia/Conf [place] Required: No Accompanied by: Self / Same As Patient Allergies atorvastatin Allergy (Intermediate, Verified 06/11/24 10:56) myalgias ibuprofen Allergy (Intermediate, Verified 06/11/24 10:56) contraindicated due to kidneys insulin aspart Allergy (Intermediate, Verified 06/11/24 10:56) swelling in legs pioglitazone Allergy (Intermediate, Verified 06/11/24 10:56) face swelling pollen extracts [POLLEN] Allergy (Intermediate, Verified 06/11/24 10:56) ITCHY,SNEEZING, RUNNY NOSE Medication List - Last Reconciled 06/11/24 by Jorge Bradley MD aspirin (Adult Aspirin Regimen) 81 mg PO DAILY blood sugar diagnostic (OneTouch Ultra Test strips) As directed four times a day blood-glucose meter (Accu-Chek Guide Glucose Meter) As directed blood-glucose meter (OneTouch Ultra2 Meter) As directed cholecalciferol (vitamin D3) 50 mcg PO DAILY 90 days flash glucose scanning reader (FreeStyle Jackson 2 [place]) As directed flash glucose sensor (FreeStyle Jackson 2 Sensor kit) As directed every 2 weeks insulin degludec (Tresiba FlexTouch U-100 insulin) 45 units (0.45 mL) subcut BEDTIME 90 days lancets As directed lisinopril 2.5 mg PO DAILY 90 days loratadine 10 mg PO DAILY 90 days metoprolol succinate ER 25 mg PO DAILY omeprazole 20 mg PO DAILY 90 days pen needle, diabetic Use 1 needle8 four times a day rosuvastatin 40 mg PO DAILY 90 days semaglutide (Ozempic) 2 mg (0.75 mL) subcut QWEEK 4 weeks Do you need a note to return to daycare/school/sports/work: No HPI Comments Details: 73-year-old female with diabetes mellitus type 2 on long-term current use of insulin, chronic kidney disease stage 3, hyperlipidemia, chronic GERD and vitamin-D deficiency that comes today for follow-up on her conditions. A1c slightly elevated and she is compliant with her medications. Blood pressure stable. GFR has not significantly changed and this is follow by Nephrology. LDL within goal. GERD stable with PPIs. Vitamin-D is low and supplement will be sent. Diabetic eye exam done November 2022. No chest pain shortness on breath. On ozempic and lost weight Feels better [facility] Medical History Chronic kidney disease, stage 4 (severe) CKD (chronic kidney disease) stage 3, GFR 30-59 ml/min Murmur Vitamin D deficiency Secondary hyperparathyroidism Osteoarthritis of right shoulder Right shoulder pain Hearing loss Exposure to COVID-19 virus Anemia Obesity due to excess calories Tubular adenoma of colon Heart murmur Migraines Low vitamin B12 level Fatty liver GERD (gastroesophageal reflux disease) Type 2 diabetes mellitus with chronic kidney disease Hyperlipidemia LDL goal <100 Essential hypertension Surgical History Hx of colonoscopy History of eye surgery H/O excision of ganglion cyst History of tubal ligation History of laparoscopic cholecystectomy Family History Mother Diabetes Heart disease Hypertension Dementia Brother Diabetes Heart disease Sister Diabetes Father Substance use disorder Social History Household Members: None Housing: Apartment Are you a primary special needs caregiver to a significant other at home: No Alcohol intake: never Patient Tobacco Use Status: Never used Tobacco e-Cigarette/Vaping Use: Never Used Second Hand Smoke Exposure: No service: No Current occupational status: unemployed and retired Current occupational exposures/hazards: No Cognitive needs: No Hearing needs: No Vision needs: Yes Physical Exam Vital Signs: Last Vital Signs Pulse 74 06/11/24 10:52 BP 90/50 L 06/11/24 10:52 Pulse Ox 97 06/11/24 10:52 Oxygen Delivery Method Room Air 06/11/24 10:52 BMI result Body Mass Index 29.3 Comfortable Neck supple no JVD. Lungs entry equal no rales. Heart S1-S2 heard no gallop or rub. Abdomen soft nontender. Neuro alert awake oriented. No asterixis. Extremities no edema. Results Reviewed Nephrology Results: Hgb 9.6 g/dl (12.0-16.0) L 06/09/24 WBC 6.1 X10*3/uL (4.8-10.8) 06/09/24 Plt Count 272 X10*3/uL (160-400) 06/09/24 Sodium 140 mmol/L (135-145) 06/09/24 Potassium 4.9 mmol/L (3.3-5.1) 06/09/24 Chloride 107 mmol/L (96-108) 06/09/24 Carbon Dioxide 26 mmol/L (22-29) 06/09/24 BUN 23 mg/dL (9-16) H 06/09/24 Creatinine 1.58 mg/dL (0.5-1.4) H 06/09/24 Calcium 9.6 mg/dL (8.4-10.2) 06/09/24 Urine Creatinine 171.81 mg/dL 04/01/24 Assessment & Plan Assessment & Plan (1) CKD (chronic kidney disease) stage 3, GFR 30-59 ml/min: Code(s): N18.30 - Chronic kidney disease, stage 3 unspecified Category: Medical Qualifiers: Chronic kidney disease stage 3 subtype: stage 3b (GFR 30-44) Qualified Code(s): N18.32 - Chronic kidney disease, stage 3b Plan: In a setting of HTN and DM Creatinine is stable Watch for now Will benefit from SGLT-2 inhibitors (2) Anemia: Code(s): D64.9 - Anemia, unspecified Category: Medical Plan: Multifactorial Stable No need for EPO yet (3) Type 2 diabetes mellitus with chronic kidney disease: Code(s): E11.22 - Type 2 diabetes mellitus with diabetic chronic kidney disease Category: Medical Qualifiers: Diabetes mellitus retirement insulin use: with quarter doper use Chronic kidney disease stage: stage 3 (moderate) Chronic kidney disease stage 3 subtype: stage 3b (GFR 30-44) Qualified Code(s): E11.22 - Type 2 diabetes mellitus with diabetic chronic kidney disease; N18.32 - Chronic kidney disease, stage 3b; Z79.4 - penitentiary (current) use of insulin Plan: Goal A1C < 7% (4) Essential hypertension: Code(s): I10 - Essential (primary) hypertension Category: Medical Plan: BP is rather low but asymptomatic Keep SBP < 130 Avoid hypotension If SBP Stays below 90, i will stop Lisinopril 2.5 mg Stay on low salt diet Orders: Orders Basic Metabolic Panel 4 Months N18.32 - Chronic kidney disease, stage 3b Coding Level of Care Code Est Pt Level 4 (13460) Diagnoses Stage 3b chronic kidney disease N18.32 Chronic kidney disease stage 3 subtype: stage 3b (GFR 30-44) Anemia D64.9 Type 2 diabetes mellitus with stage 3b chronic kidney disease, with long-term current use of insulin E11.22; N18.32; Z79.4 Diabetes mellitus retirement insulin use: with retirement use Chronic kidney disease stage: stage 3 (moderate) Chronic kidney disease stage 3 subtype: stage 3b (GFR 30-44) Essential hypertension I10
--- OUTSIDE RECORDS SUMMARY | 2024-06-11 13:15 | XMS_ITS | Clinical Summary ---
Author Organization [facility] Address [address] [place] [address] Phone Care Team Providers Care Sort Line Worker Name Role Phone Larisa Barry MD Primary Care Provider [phone] Allergies Active Allergy Reactions Criticality Noted Date Comments Atorvastatin 11/28/2020 Ibuprofen 11/28/2020 Insulin Aspart (Human Analog) 2020 Pioglitazone 11/28/2020 Pollen Extract 11/28/2020 Medications aspirin ([facility]) 81 MG EC tablet Take [...] Comments Breast Cancer Screening 1950 Pneumococcal Vaccine: 50+ Ye ars (1 of 2 - PCV) 1970 Colorectal Cancer Screening: Annual FOBT 2000 Colorectal Cancer Screening: Colonoscopy 2000 Colorectal Cancer Screening: Sigmoidoscopy 2000 Diabetes: Hemoglobin A1C 03/27/2020 09/11/2019 Diabetes: Ophthalmology Exam 03/27/2020 Diabetes: Pedal Pulse Checked 03/27/2020 Diabetes: Sensory Foot Exam 03/27/2020 Diabetes: Visual Foot Exam 03/27/2020 Influenza Vaccine (Season Ended) 2024 Hepatitis B Vaccine Aged Out No longe r eligible based on patient's age to complete this topic Procedures Procedure Name Priority Date/Time Associated Diagnosis Comments HEMOGLOBIN A1C Routine 09/11/2019 8:10 AM EDT from Last 3 Months or Most Recently Relevant to Health Maintenance Results * Hemoglobin A1c (09/11/2019 8:10 AM EDT) Hemoglobin A1C 7.1 % [facility] Comment: ?Hemoglobin A1C Reference Range ? [...] average glucose, using the formula of the [id number] Average Glucose study (ADAG), Diabetes Care, Vol.31,#8, Sep. 2007 09/11/2019 8:10 AM EDT us Larisa Hollingsworth NP LAB BLOOD ORDERABLES [facility] Last 3 Months or Most Recently Relevant to Health Maintenance Insurance [facility] ([id number]) [facility] ([id number]) Care Teams Sort Line Worker Relationship Specialty Start Date End Date Larisa Barry MD [address] [place], [place] PCP - General 03/07/20
--- OUTSIDE RECORDS SUMMARY | 2024-06-11 13:15 | XMS_ITS ---
Author Organization [facility] Address [address] [place] [address] Care Team Providers Care Nuclear Medicine Technologist Name Role Phone Larisa Barry Primary Care Provider UnavailRashard Kathleen Unavailable [phone] Allergies Allergen (clinical drug ingredient) Drug/Non Drug Allergy documented on EMR Reaction Allergy Type Onset Date Status pioglitazone Pioglitazone Unknown Drug Allergy A ctive ibuprofen Ibuprofen Unknown Drug Allergy Active Pollen Pollen Unknown Allergy Active insulin aspart, human Insulin Aspart Unknown Drug Allergy Active atorvastatin Atorvastatin Unknown Drug Allergy A ctive REASON FOR VISIT Patient presents today for a colon screening Medications Medication SIG (Take, Route, Frequency, Duration) Notes Start Date End Date Status Tresiba FlexTouch 100 UNIT/ML INJECT 40 UNITS UNDER THE SKIN AT BEDTIME Subcutaneous for 85 Active Omeprazole 20 MG TAKE 1 CAPSULE BY MO UTH DAILY Oral for 90 Active Vitamin D3 50 MCG (1999 UT) TAKE 50MCG BY MOUTH FOR 90 DAYS Oral for 90 Active Lisinopril 2.5 MG 1 tablet Orally Once a day for 30 day(s) Active Metoprolol Succinate ER 25 MG 1 tablet Orally Once a day for 30 day(s) Active Ozempic (1 MG/DOSE) 4 MG/3ML as directed Subcutaneous Act clayton Tresiba 100 UNIT/ML as directed Subcutan eous 48 ml Active Aspirin 81 81 MG 1 tablet Orally Once a day for 30 day(s) Active Loratadine 10 MG 1 tablet Orally Once a day for 30 day(s) Active Rosuvastatin Calcium 40 MG 1 tablet Oral ly Once a day for 30 day(s) Active Social History Tobacco Use: Social History Observation Description Date Details (start date - stop date) Never Smoker NA - NA Tobacco Use/Smoking Question Answer Notes Patient is a nonsmoker Alcohol Screen Question Answer Notes Did you have a drink containing alcohol in the p ast year? No Points 0 Interpretation Negative Section Notes: Nonsmoker; no sig alcohol Problems Problem Type SNOMED Code ICD Code Onset Dates Problem Status W/U Status Risk Notes Problem History of adenomatous polyp of colon (401179713) History of adenomatous polyp of colon (Z86.010) Active confirmed Problem Colon cancer screening (710784232) Colon cancer screening (Z12.11) Active confirmed Problem Pre-procedure evaluation check (417948796) Encounter for other preprocedural examination (Z01.818) Active confirmed Vital Signs Temperature 97.8 degrees Fahrenheit 04/23/19 24 Blood pressure systolic 00 mm Hg 04/23/19 24 Blood pressure diastolic 00 mm Hg 024 Height 5 ft 1 in in 04/23/2023 Weight 157 lbs 04/23/2023 BMI 29.66 kg/m2 04/23/2023 Encounters Encounter Location Date Provider Diagnosis [facility] [address] [place] [address] 04/23/2023 Rashard Lomax History of adenomato us polyp of colon Z86.010 ; Encounter for other preprocedural examination Z01.818 and Colon cancer screening Z12.11 Assessments Encounter Date Diagnosis (ICD Code) Assessment Notes Treatment Notes Treatment Clinical Notes Section Notes 04/23/2023 History of adenomatous polyp of colon (ICD-10 - Z86.010) Overall, Estrella Appears quite well. Given her age, excellent clinical appearance, reported history of previous polyps, and the last colonoscopy over 5 years ago, I did recommend a followup colonoscopy for further screening purposes. We did review the rationale for that in regard to colon cancer prevention. Full consent is obtained for this, including risks of bleeding and perforation. Procedure will be done monitored anesthesia care. She was given the below instructions regarding adjustment of her medications for the procedure. Estrella was comfortable with this plan. Thank you again for allowing me to stay in the estrella's care. I shall continue to keep you advised of her progress. 04/23/2023 Encounter for other preprocedural examination (ICD-10 - Z01.818) Overall, Estrella Appears quite well. Given her age, excellent clinical appearance, reported history of previous polyps, and the last colonoscopy over 5 years ago, I did recommend a followup colonoscopy for further screening purposes. We did review the rationale for that in regard to colon cancer prevention. Full consent is obtained for this, including risks of bleeding and perforation. Procedure will be done monitored anesthesia care. She was given the below instructions regarding adjustment of her medications for the procedure. Estrella was comfortable with this plan. Thank you again for allowing me to stay in the estrella's care. I shall continue to keep you advised of her progress. 04/23/2023 Colon cancer screening (ICD-10 - Z12.11) STOP ASPIRIN FOR 1 WEEK BEFORE THE COLONOSCOPY DO NOT TAKE THE OZEMPIC FOR AT LEAST 7 DAYS BEFORE THE COLONOSCOPY TAKE ONLY 1/2 THE USUAL AMOUNT OF TRESIBA THE NIGHT BEFORE THE COLONOSCOPY Overall, Estrella Appears quite well. Given her age, excellent clinical appearance, reported history of previous polyps, and the last colonoscopy over 5 years ago, I did recommend a followup colonoscopy for further screening purposes. We did review the rationale for that in regard to colon cancer prevention. Full consent is obtained for this, including risks of bleeding and perforation. Procedure will be done monitored anesthesia care. She was given the below instructions regarding adjustment of her medications for the procedure. Estrella was comfortable with this plan. Thank you again for allowing me to stay in the estrella's care. I shall continue to keep you advised of her progress. Plan Of Treatment Treatment Notes Assessment Notes Colon cancer screening STOP ASPIRIN FOR 1 WEEK BEFORE THE COLONOSCOPY DO NOT TAKE THE OZEMPIC FOR AT LEAST 7 DAYS BEFORE THE COLONOSCOPY TAKE ONLY 1/2 THE USUAL AMOUNT OF TRESIBA THE NIGHT BEFORE THE COLONOSCOPY Next Appt Details Follow Up: prn, Reason: Progress Notes * ESTRELLA RYANDOB: 1950 (73 yo F)Acc No.[id number]:04/23/2023 Progress Notes Patient:?Charlie RYAN Provider:?Rashard Lomax MD :1950???Age:73 Y???Sex:Female D ate:04/23/2023 Address:[address] [place], [place] [id number] Pcp:Larisa Nas Kamaljit Subjective: * Chief Complaints: * ???Patient presents today fo r a colon screening * HPI: ???incontinence:? I saw Estrella in the office today for evaluation of her personal history of colon polyps and discussion of colorectal cancer screening. ?As you know, Estrella is a 73-year-old female who presently feels well. She describes having an initial screening colonoscopy in the past with removal of at least one polyp. She describes a followup colonoscopy about 5 or [address] Hightower that was negative. She was advised at that time to have a repeat exam in about 5 years. She presently feels well from a GI standpoint. She does use omeprazole regularly with good relief of previous heartburn symptoms. She denies any dysphagia, anorexia, early satiety, nausea, no vomiting. She describes a previous upper endoscopy that was nonrevealing as far as she knows. She denies any abdominal pain, jaundice, nor weight loss. Her bowel movements have been regular and without any signs of bleeding. She denies any known family history of colon cancer. ?She does describe a history of anemia. ?Laboratories earlier this month reveal normal electrolytes, BUN of 15, and creatinine 1.5. She had an iron of 62 and iron saturation of 18%. She hemoglobin 10.3 with MCV of 87. She had a normal liver profile except for an AST of 42 and ALT of 42. * ROS:?General/Constitutional:?Change in appetite?denies.?Chills?denies.?Fatigue?denies.?Ophthalmologic:?Comments?all negative.?ENT:?Comments?all negative.?Respiratory:?hemoptysis?denies.?Cough?denies.?Cardiovascular:?Chest pain?denies.?Orthopnea?denies.?Gastrointestinal:?Comments?See HPI for details.?Genitourinary:?Hematuria?denies.?Dysuria?denies.?Musculoskeletal:?Painful joints?denies.?Weakness?denies.?Skin:?Itching?denies.?Rash?denies.?Neurologic:?Headache?denies.?Seizures?denies.?Psychiatric:?Comments?all negative.? * Medical History:? * Surgical History:?Cholecyste ctomy Glaucoma surgery BTL * Hospitalization/Major Diagno stic Procedure:?No Hospitalization History. * Family History:?Father: dece ased, diagnosed with HTN (hypertension).?Mother: alive, dementia, diagnosed with Diabetes, Heart disease, HTN (hypertension).?Siblings: diagnosed with HTN (hypertension).? no colon cancer. * Social History:?Tobacco Use:?Tobacco Use/Smoking?Patient is a?nonsmoker.?Drugs/Alcohol:?Alcohol Screen?Did you have a drink containing alcohol in the past year??No,?Points?0,?Interpretation?Negative.?Miscellaneous:?Marital status: single. 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 ???Nonsmoker; no sig alcohol. * Medications:?TakingAspirin 8 1 81 MG Tablet Delayed Release 1 tablet Orally Once a dayTresiba 100 UNIT/ML Solution as directed Subcutaneous 48 mlOzempic (1 MG/DOSE) 4 MG/3ML Solution Pen-injector as directed Subcutaneous Rosuvastatin Calcium 40 MG Tablet 1 tablet Orally Once a dayLoratadine 10 MG Tablet 1 tablet Orally Once a dayMetoprolol Succinate ER 25 MG Tablet Extended Release 24 Hour 1 tablet Orally Once a dayLisinopril 2.5 MG Tablet 1 tablet Orally Once a dayVitamin D3 50 MCG (1999 UT) Capsule TAKE 50MCG BY MOUTH FOR 90 DAYS Oral Omeprazole 20 MG Capsule Delayed Release TAKE 1 CAPSULE BY MOUTH DAILY Oral Tresiba FlexTouch 100 UNIT/ML Solution Pen-injector INJECT 40 UNITS UNDER THE SKIN AT BEDTIME Subcutaneous Medication List reviewed and reconciled with the patientTaking Aspirin 81 81 MG Tablet Delayed Release 1 tablet Orally Once a dayTaking Tresiba 100 UNIT/ML Solution as directed Subcutaneous 48 mlTaking Ozempic (1 MG/DOSE) 4 MG/3ML Solution Pen-injector as directed Subcutaneous Taking Rosuvastatin Calcium 40 MG Tablet 1 tablet Orally Once a dayTaking Loratadine 10 MG Tablet 1 tablet Orally Once a dayTaking Metoprolol Succinate ER 25 MG Tablet Extended Release 24 Hour 1 tablet Orally Once a dayTaking Lisinopril 2.5 MG Tablet 1 tablet Orally Once a dayTaking Vitamin D3 50 MCG (1999 UT) Capsule TAKE 50MCG BY MOUTH FOR 90 DAYS Oral Taking Omeprazole 20 MG Capsule Delayed Release TAKE 1 CAPSULE BY MOUTH DAILY Oral Taking Tresiba FlexTouch 100 UNIT/ML Solution Pen-injector INJECT 40 UNITS UNDER THE SKIN AT BEDTIME Subcutaneous Medication List reviewed and reconciled with the patient * Allergies:?AtorvastatinIbupr ofenInsulin AspartPioglitazonePollenyes[Allergies Verified] Objective: * Vitals:?Wt: 157 lbs, Ht: 5 f t 1 in, BMI:29.66 Index, BP: 00/00 mm Hg, Temp: 97.8. * Examination: ???General Examination: ?GENERAL APPEARANCE:?pleasant, well nourished, well developed, in no acute distress.?EYES:?sclera non-icteric.?ORAL CAVITY:?mucosa moist.?NECK/THYROID:?no cervical lymphadenopathy, neck supple.?SKIN:?nonjaundiced, no spider angiomata.?HEART:?S1, S2 normal.?LUNGS:?clear to auscultation bilaterally.?ABDOMEN:?normal bowel sounds, no guarding or rigidity, no guarding or rigidity, no masses palpable, soft, nontender, nondistended.?EXTREMITIES:?no edema.?NEUROLOGIC:?alert and oriented.? Assessment: * Assessment: 1.?Encounter for other prepr ocedural examination - Z01.818 (Primary)?2.?History of adenomatous polyp of colon - Z86.010?3.?Colon cancer screening - Z12.11? Overall, Estrella Appears quit e well. Given her age, excellent clinical appearance, reported history of previous polyps, and the last colonoscopy over 5 years ago, I did recommend a followup colonoscopy for further screening purposes. We did review the rationale for that in regard to colon cancer prevention. Full consent is obtained for this, including risks of bleeding and perforation. Procedure will be done monitored anesthesia care. She was given the below instructions regarding adjustment of her medications for the procedure. Estrella was comfortable with this plan. Thank you again for allowing me to stay in the estrella's care. I shall continue to keep you advised of her progress. Plan: * Treatment: * Procedure Codes:?3017F COLOR ECTAL CA SCREEN DOC [id number] TOBACCO [id number] BP SCR NOT PRFRM REC REASON NOS * Preventive Medicine:? ??Counseling:?Care goal follow-up plan:?Above Normal BMI Follow-up?Giving encouragement to exercise,?BMI management provided?Yes.? ??Urinary Incontinence:?Urinary Incontinence?Assessment:?Absent,?Plan of care documented:?No, reason not specified.? * Follow Up:?prn * * Sign off status: Completed true * Provider:?Rashard Lomax MD Date:? 024 Generated for Susan burgos/Radha/Jean Claude on:?06/11/2024 01:15 PM EDT History and Physical Notes * HPI (History of Present Illness) Category Sub-Category Detail Notes Category Not es incontinence I saw Estrella in the office today for evaluation of her personal history of colon polyps and discussion of colorectal cancer screening. As you know, Estrella is a 73-year-old female who presently feels well. She describes having an initial screening colonoscopy in the past with removal of at least one polyp. She describes a followup colonoscopy about 5 or [address] Hightower that was negative. She was advised at that time to have a repeat exam in about 5 years. She presently feels well from a GI standpoint. She does use omeprazole regularly with good relief of previous heartburn symptoms. She denies any dysphagia, anorexia, early satiety, nausea, no vomiting. She describes a previous upper endoscopy that was nonrevealing as far as she knows. She denies any abdominal pain, jaundice, nor weight loss. Her bowel movements have been regular and without any signs of bleeding. She denies any known family history of colon cancer. She does describe a history of anemia. Laboratories earlier this month reveal normal electrolytes, BUN of 15, and creatinine 1.5. She had an iron of 62 and iron saturation of 18%. She hemoglobin 10.3 with MCV of 87. She had a normal liver profile except for an AST of 42 and ALT of 42. Examination Category Sub-Category Detail Notes Category Not es General Examination GENERAL APPEARANCE: pleasant , well nourished, well developed, in no acute distress HEAD: EYES: sclera non-icteric EARS: NOSE: THROAT: NECK/THYROID: no cervical lymphade nopathy, neck supple HEART: S1, S2 normal CHEST: LUNGS: clear to auscultatio n bilaterally ABDOMEN: normal bowel sounds, no guarding or rigidity, no guarding or rigidity, no masses palpable, soft, nontender, nondistended NEUROLOGIC: alert and oriented SKIN: nonjaundiced, no spi maci angiomata EXTREMITIES: no edema PERIPHERAL PULSES: BACK: BREASTS: MUSCULOSKELETAL: MALE GENITOURINARY: LYMPH NODES: RECTAL EXAM: FEMALE GENITOURINARY: ORAL CAVITY: mucosa moist
--- OUTSIDE RECORDS SUMMARY | 2024-06-11 13:15 | XMS_ITS ---
Author Organization [facility] Address [address] [place] [address] Care Team Providers Care Parent Trainer Name Role Phone Larisa Barry Primary Care Provider Unavailab Rashard Morales Unavailable [phone] REASON FOR VISIT screening,hx polyps Problems Problem Type SNOMED Code ICD Code Onset Dates Problem Status W/U Status Risk Notes Problem History of polyp of colon (situation) (601773442) Personal history of colonic polyps (Z86.010) Active confirmed Encounters Encounter Location Date Provider Diagnosis [facility] [address] [place], [place] [id number] 07/19/2023 Rashard Lomax Encounter for scre ening colonoscopy Z12.11 and Personal history of colonic polyps Z86.010 Assessments Encounter Date Diagnosis (ICD Code) Assessment Notes Treatment Notes Treatment Clinical Notes Section Notes 07/19/2023 Encounter for screening colonoscopy (ICD-10 - Z12.11) 07/19/2023 Personal history of colonic polyps (ICD-10 - Z86.010) Plan Of Treatment No Information Progress Notes * BA HALL DIVINEJONATHANDOB: 1950 (74 yo F)Acc No.[id number]:07/19/2023 COLON WITH MAC Patient:?Charlie RYAN GIOVANNY Provider:Dioni Lomax MD :1950???Age:73 Y???Sex:Female D ate:07/19/2023 Address:[address] [place], [place] [id number] Pcp:Larisa Mari Subjective: * Chief Complaints: * ???1. Screening,hx polyps. * Medical History:? Objective: * Vitals:? Assessment: * Assessment: 1.?Encounter for screening c olonoscopy - Z12.11 (Primary)???2.?Personal history of colonic polyps - Z86.010??? Plan: * Treatment: * Procedure Codes:?69438 DIAGN OSTIC COLONOSCOPY * Preventive Medicine:? ??SHAAN Screening:?Colonoscopy?Was interval between colonoscopies three years or more??No due to Medical Reason,?Was last colonoscopy performed three or more years ago??No due to Medical Reason.? * * The named appointment provid er may or may not be the originator of this progress note, and it is not deemed complete until electronically signed by the appointment provider. Sign off status: Pending * Provider:?Rashard Lomax MD Date:? 024 Generated for Susan burgos/Radha/Tobinitting on:?06/11/2024 01:15 PM EDT
== END 2024-06-11 11:05 | disposition home or self-care (01) ==
LOC: HO.HKA 10:53
PROVIDERS: PCP Internal Medicine; Visit Provider Internal Medicine Hypertension Specialist
DX: I12.9 Hypertensive chronic kidney disease with stage 1 through stage 4 chronic kidney disease, or unspecified chronic kidney disease (principal); E11.22 Type 2 diabetes mellitus with diabetic chronic kidney disease; N18.32 Chronic kidney disease, stage 3b; D63.1 Anemia in chronic kidney disease; Z79.4 Long term (current) use of insulin
CPT/HCPCS: 99214

== ENCOUNTER → 2024-06-11 10:52 | Outpatient (BNVA) | payer MEDICARE, SELFPAY | PROVIDERS: PCP Internal Medicine; Visit Provider Internal Medicine Hypertension Specialist | DX: E11.22 Type 2 diabetes mellitus with diabetic chronic kidney disease (principal); I12.9 Hypertensive chronic kidney disease with stage 1 through stage 4 chronic kidney disease, or unspecified chronic kidney disease; N18.32 Chronic kidney disease, stage 3b; D64.9 Anemia, unspecified; Z79.4 Long term (current) use of insulin | CPT/HCPCS: 99212 ==

== ENCOUNTER 2024-06-15 16:06 | Outpatient (AMB) | payer MEDICARE, SELFPAY ==
--- NOTE | 2024-06-15 16:14 | A.OFFPC_ITS ---
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 Required: No Accompanied by: Self / Same As Patient Allergies atorvastatin Allergy (Intermediate, Verified 06/15/24 16:21) myalgias ibuprofen Allergy (Intermediate, Verified 06/15/24 16:21) contraindicated due to kidneys insulin aspart Allergy (Intermediate, Verified 06/15/24 16:21) swelling in legs pioglitazone Allergy (Intermediate, Verified 06/15/24 16:21) face swelling pollen extracts [POLLEN] Allergy (Intermediate, Verified 06/15/24 16:21) ITCHY,SNEEZING, RUNNY NOSE Medication List - Last Reconciled 06/15/24 by Larisa Mari MD aspirin (Adult Aspirin Regimen) 81 mg PO DAILY blood sugar diagnostic (OneTouch Ultra Test strips) As directed four times a day blood-glucose meter (Accu-Chek Guide Glucose Meter) As directed blood-glucose meter (OneTouch Ultra2 Meter) As directed cholecalciferol (vitamin D3) 50 mcg PO DAILY 90 days flash glucose scanning reader (FreeStyle Jackson 2 [place]) As directed flash glucose sensor (FreeStyle Jackson 2 Sensor kit) As directed every 2 weeks insulin degludec (Tresiba FlexTouch U-100 insulin) 45 units (0.45 mL) subcut BEDTIME 90 days lancets As directed lisinopril 2.5 mg PO DAILY 90 days loratadine 10 mg PO DAILY 90 days metoprolol succinate ER 25 mg PO DAILY omeprazole 20 mg PO DAILY 90 days pen needle, diabetic Use 1 needle8 four times a day rosuvastatin 40 mg PO DAILY 90 days semaglutide (Ozempic) 2 mg (0.75 mL) subcut QWEEK 4 weeks Tobacco use date assessed: 06/15/24 Fall risk assessment: 1 Fall in past year Last assessed Fall Risk: 06/15/24 Dental Screening Dental Screen Date: 06/15/24 Did you have a dental visit in the last 12 months?: No Did you have a dental problem in the last 6 months where you did not have access to dental care?: No Was dental information given to patient?: Patient has dentist HPI HPI Comments History of Present Illness Details The patient is a 74-year-old female presenting for follow-up of her chronic medical conditions including type 2 diabetes mellitus, hypertension, hyperlipidemia, and chronic kidney disease, stage 3. She reports past consultation with a medical office receptionist assistant and notes stable kidney function as her medical office receptionist assistant did not prescribe any change in management. She has secondary hyperparathyroidism. Her blood pressure is well managed. She is maintaining dietary restrictions necessary for her conditions; however, she reports her hemoglobin has been slightly decreased at 9.6 g/dL due to anemia of chronic kidney disease. The patient's HbA1c has decreased from 7.8% to 7.5%, but she notes variable home glucose levels, sometimes as low as 86 mg/dL. She denies frequent hypoglycemia but experiences nocturnal hand tingling when glucose levels are low. The patient also reports a history of hyperlipidemia, currently managed with rosuvastatin with LDL cholesterol at 42 mg/dL in March, considered optimal. Vitamin D levels are low, at 19.8 ng/mL. She has a known history of allergic rhinitis, exacerbated particularly this week. She denies use of corticosteroids or other recent medications and has dietary adjustments focused on vitamin supplementation. [facility] Medical History (Updated 06/15/24 @ 16:36 by Larisa Mari MD) CKD (chronic kidney disease) stage 3, GFR 30-59 ml/min Chronic kidney disease, stage 4 (severe) Murmur Vitamin D deficiency Secondary hyperparathyroidism Osteoarthritis of right shoulder Right shoulder pain Hearing loss Exposure to COVID-19 virus Anemia Obesity due to excess calories Tubular adenoma of colon Heart murmur Migraines Low vitamin B12 level Fatty liver GERD (gastroesophageal reflux disease) Type 2 diabetes mellitus with chronic kidney disease Hyperlipidemia LDL goal <100 Essential hypertension Surgical History Hx of colonoscopy History of eye surgery H/O excision of ganglion cyst History of tubal ligation History of laparoscopic cholecystectomy Family History Mother Diabetes Heart disease Hypertension Dementia Brother Diabetes Heart disease Sister Diabetes Father Substance use disorder Social History Household Members: None Housing: Apartment Are you a primary hospice care consultant to a significant other at home: No Alcohol intake: never Patient Tobacco Use Status: Never used Tobacco e-Cigarette/Vaping Use: Never Used Second Hand Smoke Exposure: No service: No Current occupational status: unemployed and retired Current occupational exposures/hazards: No Cognitive needs: No Hearing needs: No Vision needs: Yes Questionnaire PHQ-9 Over the last 2 weeks, how often have you been bothered by any of the following problems? 1. Little interest or pleasure in doing things: not at all 2. Feeling down, depressed, or hopeless: not at all 3. Trouble falling or staying asleep, or sleeping too much: not at all 4. Feeling tired or having little energy: not at all 5. Poor appetite or overeating: not at all 6. Feeling bad about yourself - or that you are a failure or have let yourself or your family down: not at all 7. Trouble concentrating on things, such as reading the newspaper or watching television: not at all 8. Moving or speaking so slowly that other people could have noticed. Or the opposite - being so fidgety or restless that you have been moving around a lot more than usual: not at all 9. Thoughts that you would be better off or of hurting yourself in some way: not at all Total score: 0 Depression Screening Interpretation: Negative Depression Screening Done: Yes 06630 - PHQ-9 Billing: Yes Source: Developed by Drs. Rashard Grove, Olga Mittal, Wil Prince and colleagues, with an educational chel from [employer]. Thrive Questionnaire Date Thrive assessed: 06/15/24 I am a: Patient What is your living situation today?: I have a steady place to live Within the past 12 months, did the food you bought not last and you didn't have the money to get more?: Never true Within the past 12 months, did you worry whether your food would run out before you got money to buy more?: Never true Do you have trouble paying for medicines?: No Do you have trouble getting transportation to medical appointments?: No Do you have trouble paying your heating and electricity bill?: No Do you have trouble taking care of your child, family member or friend?: No Do you have trouble with day-to-day activities such as bathing, preparing meals, shopping, managing finances, etc.?: No Are you currently unemployed and looking for a job?: No Are you interested in more education?: No Please select the resources that you would like help with: None Currently or been in a relationship where the following occur: No concerns reported THRIVE Score: 0 AUDIT C Alcohol Use Questionnaire (AUDIT-C) 1. How often do you have a drink containing alcohol?: Never Total Score: 0 Score Reviewed/Action Taken: No ANA AMRIA-7 AMB Questionnaire ANA MARIA-7 Date ANA MARIA - 7 assessed: 06/15/24 Feeling nervous, anxious, or on edge: 0 = Not at all Not being able to stop or control worryin = Not at all Worrying too much about different things: 0 = Not at all Trouble relaxin = Not at all Being so restless that it is hard to sit still: 0 = Not at all Becoming easily annoyed or irritable: 0 = Not at all Feeling afraid as if something awful might happen: 0 = Not at all Total ANA MARIA-7 score (0-4 normal; 5-9 mild; 10-14 moderate; 15-21 severe): 0 Source: Developed by Drs. Rashard Grove, Olga Mittal, Wil Prince and colleagues, with an educational chel from [employer]. ANA MARIA-7 Assessment Billing ANA MARIA-7 Assessment Tool: ANA MARIA-7 Assessment 65514 Review of Systems Const All systems reviewed & are unremarkable except as noted in HPI and below Card Denies chest pain at rest, Denies chest pain with activity, Denies edema, Denies irregular heart rhythm, Denies claudication, Denies dyspnea, Denies dyspnea on exertion, Denies orthopnea, Denies paroxysmal nocturnal dyspnea and Denies slow heart rate Resp Denies cough, Denies dyspnea and Denies dyspnea on exertion GI Denies abdominal pain, Denies change in bowel habits, Denies excessive flatus, Denies nausea and Denies vomiting Physical exam (Primary Care) Vital Signs: Last Vital Signs BP 120/62 06/15/24 16:15 BMI result Body Mass Index 29.5 Tobacco/Smoking Status: Tobacco use Status Tobacco use date assessed 06/15/24 06/15/24 16:18 Patient Tobacco Use Status Never used Tobacco 06/15/24 16:18 Tobacco use type 06/11/24 11:06 e-Cigarette/Vaping Use Never Used 06/15/24 16:18 PHQ-9: PHQ-9 Score PHQ-9: Total score 0 06/15/24 16:19 Depression Screening Interpretation: Negative Thrive Assessment: Date of Thrive Assessment Date Thrive assessed 06/15/24 06/15/24 16:18 Currently or been in a relationship where the following occur: No concerns reported Resp Effort & Inspection: normal respiratory effort Auscultation: clear to auscultation bilaterally Cardio Jugular venous distension: no JVD Rate: regular rate Rhythm: regular rhythm Heart sounds: S1 normal heart sound present and S2 normal heart sound present Extrem General: Yes full ROM Results AMB Hemoglobin A1c AMB Hemoglobin A1c 7.5 % Last Edit by KELSIE Barber on 06/15/24 16:2 2 Coding Level of Care Code Est Pt Level 4 (73367) Complex EM visit Add On G2211 Diagnoses Stage 3b chronic kidney disease N18.32 Chronic kidney disease stage 3 subtype: stage 3b (GFR 30-44) Hyperlipidemia LDL goal <70 E78.5 Secondary hyperparathyroidism N25.81 Anemia D64.9 Anemia type: due to chronic kidney disease Chronic kidney disease stage 3 subtype: stage 3b (GFR 30-44) Type 2 diabetes mellitus with stage 3b chronic kidney disease, with long-term current use of insulin E11.22; N18.32; Z79.4 Diabetes mellitus nursing home insulin use: with med specialist use Chronic kidney disease stage: stage 3 (moderate) Chronic kidney disease stage 3 subtype: stage 3b (GFR 30-44) Essential hypertension I10 Additional Codes PHQ-9 - 71900 - PHQ-9 Billing: Yes ([id number]) ANA MARIA-7 Assessment Billing - ANA MARIA-7 Assessment Tool: ANA MARIA-7 Assessment [id number] ([id number]) Time Spent (min) 22 Assessment & Plan Assessment & Plan (1) CKD (chronic kidney disease) stage 3, GFR 30-59 ml/min: Code(s): N18.30 - Chronic kidney disease, stage 3 unspecified Category: Medical Qualifiers: Chronic kidney disease stage 3 subtype: stage 3b (GFR 30-44) Qualified Code(s): N18.32 - Chronic kidney disease, stage 3b (2) Hyperlipidemia LDL goal <70: Code(s): E78.5 - Hyperlipidemia, unspecified Category: Medical (3) Secondary hyperparathyroidism: Code(s): N25.81 - Secondary hyperparathyroidism of renal origin Category: Medical (4) Anemia: Code(s): D64.9 - Anemia, unspecified Category: Medical Qualifiers: Anemia type: due to chronic kidney disease Chronic kidney disease stage 3 subtype: stage 3b (GFR 30-44) (5) Type 2 diabetes mellitus with chronic kidney disease: Code(s): E11.22 - Type 2 diabetes mellitus with diabetic chronic kidney disease Category: Medical Qualifiers: Diabetes mellitus med specialist insulin use: with med specialist use Chronic kidney disease stage: stage 3 (moderate) Chronic kidney disease stage 3 subtype: stage 3b (GFR 30-44) Qualified Code(s): E11.22 - Type 2 diabetes mellitus with diabetic chronic kidney disease; N18.32 - Chronic kidney disease, stage 3b; Z79.4 - group home (current) use of insulin (6) Essential hypertension: Code(s): I10 - Essential (primary) hypertension Category: Medical Plan Hypertension remains under control requiring no changes in medication. Diabetes management includes continuing current treatment, monitoring glucose levels, especially for nocturnal hypoglycemia, and adjustments if necessary. Hyperlipidemia is well-controlled under current statin therapy, with no alterations needed. Anemia linked with chronic kidney disease is stable and does not currently require intervention as it was evaluated by a medical office receptionist assistant; follow-up monitoring will continue. Allergic rhinitis did manifest notable symptoms, but management remains consistent with loratadine. For newly identified Vitamin D deficiency, supplementation will be initiated immediately. We have scheduled a follow-up nephrology consultation in September to continue thorough monitoring of chronic kidney disease progression. Patient was informed and verbally consented to the use of an ambient scribe for clinic note documentation during this visit. In our discussion, we reviewed the primary diagnoses of type 2 diabetes mellitus, hypertension, hyperlipidemia, and chronic kidney disease, emphasizing continued and consistent monitoring. We discussed the stability of her chronic kidney disease and decided against any new interventions at this time, reiterating the medical office receptionist assistant's guidance. For her diabetes, we agreed on the importance of regular monitoring of blood sugar levels due to reported variability and potential nocturnal hypoglycemia. For the allergic issues, given the symptomatic complaints, we noted the effectiveness of current management without needing escalation. Vitamin D supplementation was deemed necessary and prescription was provided. I confirmed follow-up appointments, particularly her nephrology review in September, to harmonize care for the kidney condition. We focused on the need for ongoing adherence to prescribed medications and monitoring well-being. Orders: Orders AMB Hemoglobin A1c Today E11.22 - Type 2 diabetes mellitus with diabetic chronic kidney disease, N18.32 - Chronic kidney disease, stage 3b, Z79.4 - group home (current) use of insulin Microalbumin, Random (w Creat) 6 Months R80.9 - Proteinuria, unspecified IRON PROFILE 6 Months D64.9 - Anemia, unspecified Vitamin B12 and Folate 6 Months E53.8 - Deficiency of other specified B group vitamins Vitamin D 25-OH Total 6 Months E55.9 - Vitamin D deficiency, unspecified Comprehensive [place]. Panel Fast 6 Months N18.32 - Chronic kidney disease, stage 3b Lipid Panel 6 Months E78.5 - Hyperlipidemia, unspecified Complete Blood Count Auto Diff 6 Months D64.9 - Anemia, unspecified Medications: Refilled cholecalciferol (vitamin D3) 50 mcg PO DAILY 90 days 90 caps 1RF Patient Instructions: - Continue current medications as prescribed. - Monitor blood glucose regularly, particularly for overnight levels. - Begin Vitamin D supplementation as prescribed. - Follow up with medical office receptionist assistant in September. - Maintain current diet and lifestyle adjustments. - Return for a scheduled physical exam in November with laboratory results. - Contact immediately if experiencing severe symptoms or complications.
[2024-06-15 16:15] VITALS: BP 120/62; BMI 29.5
== END 2024-06-15 16:32 | disposition home or self-care (01) ==
LOC: HO.HMCH 16:07
PROVIDERS: PCP Internal Medicine; Visit Provider Internal Medicine
DX: I12.9 Hypertensive chronic kidney disease with stage 1 through stage 4 chronic kidney disease, or unspecified chronic kidney disease (principal); N18.32 Chronic kidney disease, stage 3b; N25.81 Secondary hyperparathyroidism of renal origin; E11.22 Type 2 diabetes mellitus with diabetic chronic kidney disease; Z79.4 Long term (current) use of insulin; E78.5 Hyperlipidemia, unspecified; D64.9 Anemia, unspecified

== ENCOUNTER → 2024-06-15 16:06 | Outpatient (BNVA) | payer MEDICARE, SELFPAY | PROVIDERS: PCP Internal Medicine; Visit Provider Internal Medicine | DX: E78.5 Hyperlipidemia, unspecified (principal); E11.22 Type 2 diabetes mellitus with diabetic chronic kidney disease; I12.9 Hypertensive chronic kidney disease with stage 1 through stage 4 chronic kidney disease, or unspecified chronic kidney disease; N25.81 Secondary hyperparathyroidism of renal origin; N18.32 Chronic kidney disease, stage 3b; D63.1 Anemia in chronic kidney disease; Z79.899 Other long term (current) drug therapy | CPT/HCPCS: 83036; 96127; 99212 ==

== ENCOUNTER 2024-08-17 13:15 | Outpatient (REF) | payer MEDICARE, SELFPAY ==
--- OUTSIDE RECORDS SUMMARY | 2023-07-19 05:30 | XMS_ITS ---
Author Organization [facility] Address [address] [place] [address] Care Team Providers Care Food Clerk Name Role Phone Larisa Barry Primary Care Provider Unavailab Rashard Morales [phone] REASON FOR VISIT screening,hx polyps Problems Problem Type SNOMED Code ICD Code Onset Dates Problem Status W/U Status Risk Notes Problem History of polyp of colon (situation) (426635237) Personal history of colonic polyps (Z86.010) Active confirmed Encounters Encounter Location Date Provider Diagnosis [facility] Outpatient [address] [place] [phone] 07/19/2023 Rashard Lomax Encounter for scre ening colonoscopy Z12.11 and Personal history of colonic polyps Z86.010 Assessments Encounter Date Diagnosis (ICD Code) Assessment Notes Treatment Notes Treatment Clinical Notes Section Notes 07/19/2023 Encounter for screening colonoscopy (ICD-10 - Z12.11) 07/19/2023 Personal history of colonic polyps (ICD-10 - Z86.010) Plan Of Treatment No Information Progress Notes * BA ISABEL DIVINEJONATHANDOB: 1950 (74 yo F)Acc No.[id number]:07/19/2023 COLON WITH MAC Patient: Apolonia MARTIN HALL, SHEILA Provider: Manuela Lomax MD :1950 A ge:73 Y S ex:Female Date:07/19/2023 Address:[address] [place], [place] [phone] Pcp:Larisa Mari Subjective: * Chief Complaints: * [...] 07/19/2023 Generated for Susan burgos/Radha/Tobinitting on: 0 08/17/2024 02:39 PM EDT
--- NOTE | ~2024-08-17 | MM_ITS ---
EXAMINATION: MM SCREENING DIGITAL BREAST TOMOSYNTHESIS, BILATERAL CLINICAL INFORMATION: Screening. Asymptomatic. COMPARISON: Mammography: Comparison is made with available priors TECHNIQUE: Digital breast mammography with tomosynthesis is performed in both the craniocaudal and mediolateral oblique views along with computer-aided detection (CAD). FINDINGS: There are scattered areas of fibroglandular density (ACR BI-RADS breast composition Category b). There are no significant masses, abnormal calcifications, or other abnormalities. MM/MM tomosynthesis screening BI IMPRESSION: No mammographic evidence of malignancy. ASSESSMENT: BI-RADS BI-RADS 1 - Negative RECOMMENDATION: Routine annual mammography screening. 1 year F/U This examination should not preclude the clinical evaluation of a suspicious palpable abnormality. This patient's information was entered into a reminder system with a target due date for their next mammogram. Electronically signed by: Nia Garrison DO 08/21/2024 03:12 PM EDT
== END 2024-08-17 13:16 | disposition home or self-care (01) ==
LOC: HO.MAMMO 13:15
PROVIDERS: PCP Internal Medicine; Visit Provider Internal Medicine
DX: Z12.31 Encounter for screening mammogram for malignant neoplasm of breast (principal)
CPT/HCPCS: 77063; 77067

== ENCOUNTER → 2024-08-17 13:30 | Outpatient (BNV) | payer MEDICARE, SELFPAY | PROVIDERS: PCP Internal Medicine; Visit Provider Internal Medicine | DX: Z12.31 Encounter for screening mammogram for malignant neoplasm of breast (principal) | CPT/HCPCS: 77063; 77067 ==

== ENCOUNTER 2024-10-07 06:51 | Outpatient (REF) | payer MEDICARE, SELFPAY ==
[2024-10-07 08:16] LABS: Anion Gap 12 (12-20); Blood Urea Nitrogen 21 mg/dL (9-16); Calcium 9.2 mg/dL (8.4-10.2); Carbon Dioxide 25 mmol/L (22-29); Chloride 109 mmol/L (96-108); Estimated Glomerular Filt Rate 33; Potassium 4.9 mmol/L (3.3-5.1); Sodium 141 mmol/L (135-145)
== END 2024-10-07 06:52 | disposition home or self-care (01) ==
LOC: HO.LAB 06:51
PROVIDERS: PCP Internal Medicine; Visit Provider Internal Medicine Hypertension Specialist
DX: N18.32 Chronic kidney disease, stage 3b (principal)
CPT/HCPCS: 36415; 80048

== ENCOUNTER 2024-10-12 13:18 | Outpatient (AMB) | payer MEDICARE, SELFPAY ==
--- OUTSIDE RECORDS SUMMARY | 2023-07-19 05:30 | XMS_ITS ---
Author Organization [facility] Address [address] [place] [address] Care Team Providers Care Blindstitch Machine Operator Name Role Phone Larisa Barry Primary Care Provider Unavailab Rashard Morales [phone] REASON FOR VISIT screening,hx polyps Problems Problem Type SNOMED Code ICD Code Onset Dates Problem Status W/U Status Risk Notes Problem History of polyp of colon (situation) (234657350) Personal history of colonic polyps (Z86.010) Active confirmed Encounters Encounter Location Date Provider Diagnosis [facility] Outpatient [address] [place] [phone] 07/19/2023 Rashard Lomax Encounter for scre ening colonoscopy Z12.11 and Personal history of colonic polyps Z86.010 Assessments Encounter Date Diagnosis (ICD Code) Assessment Notes Treatment Notes Treatment Clinical Notes Section Notes 07/19/2023 Encounter for screening colonoscopy (ICD-10 - Z12.11) 07/19/2023 Personal history of colonic polyps (ICD-10 - Z86.010) Plan Of Treatment No Information Progress Notes * BA ISABEL DIVINEJONATHANDOB: 1950 (74 yo F)Acc No.[id number]:07/19/2023 COLON WITH MAC Patient: Apolonia MARTIN HALLDIVINE LEONIA Provider: Manuela Lomax MD :1950 A ge:73 Y S ex:Female Date:07/19/2023 Address:[address] [place], [place] [phone] Pcp:Larisa Mari Subjective: * Chief Complaints: * 1 . Screening,hx polyps. * Medical History: Objective: * Vitals: Assessment: * Assessment: 1. E ncounter for screening colonoscopy - Z12.11 (Primary) 2 . P ersonal history of colonic polyps - Z86.010 Plan: * Treatment: * Procedure Codes: 4 5378 DIAGNOSTIC COLONOSCOPY * Preventive Medicine: SHAAN Screening: C olonoscopy W as interval between colonoscopies three years or more? N o due to Medical Reason, W as last colonoscopy performed three or more years ago??No due to Medical Reason. * * The named appointment provid er may or may not be the originator of this progress note, and it is not deemed complete until electronically signed by the appointment provider. Sign off status: Pending * Provider: Manuela Lomax MD Date: 0 07/19/2023 Generated for Susan burgos/Radha/Tobinitting on: 0 10/12/2024 02:10 PM EDT
--- NOTE | 2024-10-12 13:19 | HO.NEPHOV_ITS ---
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 Required: No Accompanied by: Self / Same As Patient Allergies atorvastatin Allergy (Intermediate, Verified 10/12/24 13:21) myalgias ibuprofen Allergy (Intermediate, Verified 10/12/24 13:21) contraindicated due to kidneys insulin aspart Allergy (Intermediate, Verified 10/12/24 13:21) swelling in legs pioglitazone Allergy (Intermediate, Verified 10/12/24 13:21) face swelling pollen extracts (POLLEN) Allergy (Intermediate, Verified 10/12/24 13:21) ITCHY,SNEEZING, RUNNY NOSE Medication List - Last Reconciled 10/12/24 by Jorge Bradley MD aspirin (Adult Aspirin Regimen) 81 mg PO DAILY blood sugar diagnostic (OneTouch Ultra Test strips) As directed four times a day blood-glucose meter (Accu-Chek Guide Glucose Meter) As directed blood-glucose meter (OneTouch Ultra2 Meter) As directed cholecalciferol (vitamin D3) 50 mcg PO DAILY 90 days flash glucose scanning reader (FreeStyle Jackson 2 [place]) As directed flash glucose sensor (FreeStyle Jackson 2 Sensor kit) As directed every 2 weeks insulin degludec (Tresiba FlexTouch U-100 insulin) 45 units (0.45 mL) subcut BEDTIME 90 days lancets As directed lisinopril 2.5 mg PO DAILY 90 days loratadine 10 mg PO DAILY 90 days metoprolol succinate ER 25 mg PO DAILY omeprazole 20 mg PO DAILY 90 days pen needle, diabetic Use 1 needle8 four times a day rosuvastatin 40 mg PO DAILY 90 days semaglutide (Ozempic) 2 mg (0.75 mL) subcut QWEEK 4 weeks HPI Comments Details: 73-year-old female with diabetes mellitus type 2 on long-term current use of insulin, chronic kidney disease stage 3, hyperlipidemia, chronic GERD and vitamin-D deficiency that comes today for follow-up on her conditions. A1c slightly elevated and she is compliant with her medications. Blood pressure stable. GFR has not significantly changed and this is follow by Nephrology. LDL within goal. GERD stable with PPIs. Vitamin-D is low and supplement will be sent. Diabetic eye exam done November 2022. No chest pain shortness on breath. On ozempic and lost weight Feels better 10/12/24 The patient is a 74-year-old female presenting for a routine follow-up visit. Her blood pressure has been low, with readings of 98/50 mmHg in January and 90/50 mmHg in May. She takes lisinopril and metoprolol, which may lower blood pressure. The patient has a history of migraines managed with metoprolol, which she takes in half doses. Chronic kidney disease is present, with recent improvement in kidney function noted. She is encouraged to drink plenty of water to maintain hydration. [facility] Medical History (Updated 06/15/24 @ 16:36 by Larisa Mari MD) CKD (chronic kidney disease) stage 3, GFR 30-59 ml/min Chronic kidney disease, stage 4 (severe) Murmur Vitamin D deficiency Secondary hyperparathyroidism Osteoarthritis of right shoulder Right shoulder pain Hearing loss Exposure to COVID-19 virus Anemia Obesity due to excess calories Tubular adenoma of colon Heart murmur Migraines Low vitamin B12 level Fatty liver GERD (gastroesophageal reflux disease) Type 2 diabetes mellitus with chronic kidney disease Hyperlipidemia LDL goal <100 Essential hypertension Surgical History Hx of colonoscopy History of eye surgery H/O excision of ganglion cyst History of tubal ligation History of laparoscopic cholecystectomy Family History Mother Diabetes Heart disease Hypertension Dementia Brother Diabetes Heart disease Sister Diabetes Father Substance use disorder Social History Household Members: None Housing: Apartment Are you a primary healthcare architect to a significant other at home: No Alcohol intake: never Patient Tobacco Use Status: Never used Tobacco e-Cigarette/Vaping Use: Never Used Second Hand Smoke Exposure: No service: No Current occupational status: unemployed and retired Current occupational exposures/hazards: No Cognitive needs: No Hearing needs: No Vision needs: Yes Physical Exam Vital Signs: BMI result Body Mass Index 29.5 Comfortable Neck supple no JVD. Lungs entry equal no rales. Heart S1-S2 heard no gallop or rub. Abdomen soft nontender. Neuro alert awake oriented. No asterixis. Extremities no edema. Results Reviewed Nephrology Results: Hgb, (12.0-16.0) 9.6 g/dl L 06/09/24 WBC, (4.8-10.8) 6.1 X10*3/uL 06/09/24 Plt Count, (160-400) 272 X10*3/uL Δ 06/09/24 Sodium, (135-145) 141 mmol/L 10/07/24 Potassium, (3.3-5.1) 4.9 mmol/L 10/07/24 Chloride, (96-108) 109 mmol/L H 10/07/24 Carbon Dioxide, (22-29) 25 mmol/L 10/07/24 BUN, (9-16) 21 mg/dL H 10/07/24 Creatinine, (0.5-1.4) 1.53 mg/dL H 10/07/24 Calcium, (8.4-10.2) 9.2 mg/dL 10/07/24 Urine Creatinine 171.81 mg/dL 04/01/24 Assessment & Plan Assessment & Plan (1) CKD (chronic kidney disease) stage 3, GFR 30-59 ml/min: Code(s): N18.30 - Chronic kidney disease, stage 3 unspecified Category: Medical Qualifiers: Chronic kidney disease stage 3 subtype: stage 3b (GFR 30-44) Qualified Code(s): N18.32 - Chronic kidney disease, stage 3b Plan: In a setting of HTN and DM Creatinine is stable Watch for now Will benefit from SGLT-2 inhibitors (2) Anemia: Code(s): D64.9 - Anemia, unspecified Category: Medical Qualifiers: Anemia type: due to chronic kidney disease Chronic kidney disease stage 3 subtype: stage 3b (GFR 30-44) Plan: Multifactorial Stable No need for EPO yet (3) Type 2 diabetes mellitus with chronic kidney disease: Code(s): E11.22 - Type 2 diabetes mellitus with diabetic chronic kidney disease Category: Medical Qualifiers: Chronic kidney disease stage: stage 3 (moderate) Chronic kidney disease stage 3 subtype: stage 3b (GFR 30-44) Diabetes mellitus snf insulin use: with watermelon harvesting supervisor use Qualified Code(s): E11.22 - Type 2 diabetes mellitus with diabetic chronic kidney disease; N18.32 - Chronic kidney disease, stage 3b; Z79.4 - residential (current) use of insulin Plan: Goal A1C < 7% (4) Essential hypertension: Code(s): I10 - Essential (primary) hypertension Category: Medical Plan: BP is rather low but asymptomatic Keep SBP < 130 Avoid hypotension If SBP Stays below 90, i will stop Lisinopril 2.5 mg Stay on low salt diet Orders: Orders Basic Metabolic Panel 4 Months N18.32 - Chronic kidney disease, stage 3b Coding Level of Care Code Est Pt Level 4 (02286) Diagnoses Stage 3b chronic kidney disease N18.32 Chronic kidney disease stage 3 subtype: stage 3b (GFR 30-44) Anemia D64.9 Anemia type: due to chronic kidney disease Chronic kidney disease stage 3 subtype: stage 3b (GFR 30-44) Type 2 diabetes mellitus with stage 3b chronic kidney disease, with long-term current use of insulin E11.22; N18.32; Z79.4 Chronic kidney disease stage: stage 3 (moderate) Chronic kidney disease stage 3 subtype: stage 3b (GFR 30-44) Diabetes mellitus watermelon harvesting supervisor insulin use: with watermelon harvesting supervisor use Essential hypertension I10
[2024-10-12 13:20] VITALS: BP 98/58; PULSE 88; O2SAT 97; BMI 29.5
--- OUTSIDE RECORDS SUMMARY | 2024-10-12 14:11 | XMS_ITS | Clinical Summary ---
Author Organization [facility] Address [address] [place] [address] Phone Care Team Providers Care Juvenile Correctional Officer Name Role Phone Larisa Barry MD Primary Care Provider [phone] Allergies Active Allergy Reactions Criticality Noted Date Comments Atorvastatin 11/28/2020 Ibuprofen 11/28/2020 Insulin Aspart (Human Analog) (Yeast) 11/28/2020 Pioglitazone 11/28/2020 Pollen Extract 11/28/2020 Medications aspirin ([facility]) 81 MG EC tablet Take 1 [...] Visual Foot Exam 03/27/2020 Influenza Vaccine (#1) 2024 Hepatitis B Vaccine Aged Out No longe r eligible based on patient's age to complete this topic Procedures Procedure Name Priority Date/Time Associated Diagnosis Comments HEMOGLOBIN A1C Routine 09/11/2019 8:10 AM EDT from Last 3 Months or Most Recently Relevant to Health Maintenance Results * Hemoglobin A1c (09/11/2019 8:10 AM EDT) Hemoglobin A1C 7.1 % [place] Comment: Hemoglobin A1C Reference Range Adults: 4.8 - 6.0 % Non diabetic: < 6.0 % Goal: < 7.0 % Additional Action Suggested: > 8.0 % Note: Hemoglobin A1c results are invalid for patients with abnormal amounts of HbF. Blood transfusions may impact the HbA1c concentration in the patient sample. Estimated Average Glucose 157 MG/DL [place] Comment: eAG = Estimated average glucose which is %A1C expressed as average glucose, using the formula of the [id number] Average Glucose study (ADAG), Diabetes Care, Vol.31,#8, Sep. 2007 09/11/2019 8:10 AM EDT us Larisa Hollingsworth NP LAB BLOOD ORDERABLES Final Resul t [address] from Last 3 Months or Most Recently Relevant to Health Maintenance Insurance [facility] ([id number]) [facility] ([id number]) Care Teams Juvenile Correctional Officer Relationship Specialty Start Date End Date Larisa Barry MD [address] [place], [place] PCP - General 03/07/20
== END 2024-10-12 13:28 | disposition home or self-care (01) ==
LOC: HO.HKA 13:19
PROVIDERS: PCP Internal Medicine; Visit Provider Internal Medicine Hypertension Specialist
DX: E11.22 Type 2 diabetes mellitus with diabetic chronic kidney disease (principal); N18.32 Chronic kidney disease, stage 3b; D64.9 Anemia, unspecified; Z79.4 Long term (current) use of insulin; I10 Essential (primary) hypertension
CPT/HCPCS: 99214

== ENCOUNTER → 2024-10-12 13:18 | Outpatient (BNVA) | payer MEDICARE, SELFPAY | PROVIDERS: PCP Internal Medicine; Visit Provider Internal Medicine Hypertension Specialist | DX: E11.22 Type 2 diabetes mellitus with diabetic chronic kidney disease (principal); N18.32 Chronic kidney disease, stage 3b; Z79.4 Long term (current) use of insulin; D64.9 Anemia, unspecified | CPT/HCPCS: 99212 ==

== ENCOUNTER 2024-12-04 07:07 | Outpatient (REF) | payer MEDICARE, SELFPAY ==
[2024-12-04 07:26] LABS: MANUAL DIFF FLAG NO
[2024-12-04 07:44] LABS: Hematocrit 30.9 % (37.0-47.0); Hemoglobin 9.6 g/dl (12.0-16.0); Imm Gran Abs Auto 0.01 X10*3/uL (0.00-0.03); Imm Gran Pct Auto 0.2 % (0.0-0.4); Lymphocytes Absolute Auto 2.2 X10*3/uL (1.2-4.9); Mean Corpuscular HGB Conc 31.1 g/dl (31.0-35.0); Mean Corpuscular Hemoglobin 27.0 pg (27.0-33.0); Mean Corpuscular Volume 87.0 fL (80.0-98.0); NRBC Abs Auto 0.000 X10*3/uL (0.0-0.012); NRBC Pct Auto 0.0 /100WBC (0.0-0.2); Platelet Count 236 X10*3/uL (160-400); Red Blood Count 3.55 X10*6/uL (4.20-5.50); White Blood Count 6.2 X10*3/uL (4.8-10.8)
[2024-12-04 08:32] LABS: Alanine Aminotransferase 22 U/L (0-31); Albumin Level 4.3 g/dL (3.5-5.0); Alkaline Phosphatase 97 U/L (39-117); Anion Gap 13 (12-20); Aspartate Amino Transferase 32 U/L (5-31); Blood Urea Nitrogen 20 mg/dL (9-16); Calcium 9.5 mg/dL (8.4-10.2); Carbon Dioxide 25 mmol/L (22-29); Chloride 108 mmol/L (96-108); Cholesterol 105 mg/dL (<200); Estimated Glomerular Filt Rate 34; HDL Cholesterol 45 mg/dL (>40); Iron 37 mcg/dL (30-160); Percent Iron Saturation 10 % (15-50); Potassium 5.0 mmol/L (3.3-5.1); Sodium 141 mmol/L (135-145); Total Iron Binding Capacity 375 mcg/dL (228-428); Total Protein 7.8 g/dL (6.5-8.0); Triglycerides 119 mg/dL (<150); Unsaturated Iron Binding 338 ug/dL
[2024-12-04 08:34] LABS: Microalbum/Creatinine Ratio Ur 44.6 ug/mg cr (<30)
[2024-12-04 08:55] LABS: Folate 13.2 ng/mL (> or = 4.0); Vitamin B12 267 pg/mL (200-900)
== END 2024-12-04 07:08 | disposition home or self-care (01) ==
LOC: HO.LAB 07:07
PROVIDERS: PCP Internal Medicine; Visit Provider Internal Medicine
DX: N18.32 Chronic kidney disease, stage 3b (principal); D63.1 Anemia in chronic kidney disease; E53.8 Deficiency of other specified B group vitamins; E55.9 Vitamin D deficiency, unspecified; E78.5 Hyperlipidemia, unspecified; R80.9 Proteinuria, unspecified
CPT/HCPCS: 36415; 80053; 80061; 82043; 82306; 82570; 82607; 82746; 83540; 85025

== ENCOUNTER 2024-12-09 12:52 | Outpatient (AMB) | payer MEDICARE, SELFPAY ==
--- OUTSIDE RECORDS SUMMARY | 2023-07-19 05:30 | XMS_ITS ---
Author Organization [facility] Address [address] [place] [address] Care Team Providers Care Stretcher Drier Operator Name Role Phone Larisa Barry Primary Care Provider Unavailab Rashard Morales [phone] REASON FOR VISIT screening,hx polyps Problems Problem Type SNOMED Code ICD Code Onset Dates Problem Status W/U Status Risk Notes Problem History of polyp of colon (situation) (371262842) Personal history of colonic polyps (Z86.010) Active confirmed Encounters Encounter Location Date Provider Diagnosis [facility] Outpatient [address] [place], [place] [phone] 07/19/2023 Rashard Lomax Encounter for scre ening colonoscopy Z12.11 and Personal history of colonic polyps Z86.010 Assessments Encounter Date Diagnosis (ICD Code) Assessment Notes Treatment Notes Treatment Clinical Notes Section Notes 07/19/2023 Encounter for screening colonoscopy (ICD-10 - Z12.11) 07/19/2023 Personal history of colonic polyps (ICD-10 - Z86.010) Plan Of Treatment No Information Progress Notes * BA HALL DIVINEJONATHANDOB: 1950 (74 yo F)Acc No.[id number]:07/19/2023 COLON WITH MAC Patient: DIVINE BLAIRIA Provider: Manuela Lomax MD :1950 A ge:73 Y S ex:Female Date:07/19/2023 Address:[address] [place], [place] [phone] Pcp:Larisa Mari Subjective: * Chief Complaints: * [...] 0 07/19/2023 Generated for Susan burgos/Radha/Tobinitting on: 1 04:13 PM EDT
[2024-12-09 13:01] VITALS: BP 110/58; PULSE 67; TEMP 36.2; O2SAT 96; BMI 29.0
--- NOTE | 2024-12-09 13:01 | A.OFFPC_ITS ---
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 Accompanied by: Self / Same As Patient Allergies atorvastatin Allergy (Intermediate, Verified 12/09/24 13:14) myalgias ibuprofen Allergy (Intermediate, Verified 12/09/24 13:14) contraindicated due to kidneys insulin aspart Allergy (Intermediate, Verified 12/09/24 13:14) swelling in legs pioglitazone Allergy (Intermediate, Verified 12/09/24 13:14) face swelling pollen extracts (POLLEN) Allergy (Intermediate, Verified 12/09/24 13:14) ITCHY,SNEEZING, RUNNY NOSE Medication List - Last Reconciled 12/09/24 by Larisa Mari MD aspirin (Adult Aspirin Regimen) 81 mg PO DAILY blood sugar diagnostic (OneTouch Ultra Test strips) As directed four times a day blood-glucose meter (Accu-Chek Guide Glucose Meter) As directed blood-glucose meter (OneTouch Ultra2 Meter) As directed cholecalciferol (vitamin D3) 50 mcg PO DAILY 90 days flash glucose scanning reader (FreeStyle Jackson 2 [place]) As directed flash glucose sensor (FreeStyle Jackson 2 Sensor kit) As directed every 2 weeks insulin degludec (Tresiba FlexTouch U-100 insulin) 45 units (0.45 mL) subcut BEDTIME 90 days lancets As directed lisinopril 2.5 mg PO DAILY 90 days loratadine 10 mg PO DAILY 90 days metoprolol succinate ER 25 mg PO DAILY omeprazole 20 mg PO DAILY 90 days pen needle, diabetic Use 1 needle8 four times a day rosuvastatin 40 mg PO DAILY 90 days semaglutide (Ozempic) 2 mg (0.75 mL) subcut QWEEK 4 weeks Tobacco use date assessed: 12/09/24 Fall risk assessment: No Falls in past year Last assessed Fall Risk: 12/09/24 Dental Screening Dental Screen Date: 12/09/24 Did you have a dental visit in the last 12 months?: No Did you have a dental problem in the last 6 months where you did not have access to dental care?: No Was dental information given to patient?: No HPI HPI Comments History of Present Illness Details The patient is a 74-year-old female presenting for a physical exam and vaccinations. She has a history of diabetes mellitus with a current HbA1c of 7.8%, which is above the target goal of 7%. Her LDL cholesterol is well-controlled at 37 mg/dL, below the target of less than 70 mg/dL. The patient also has normocytic anemia attributed to chronic kidney disease, which is managed by nephrology. Her chronic kidney disease is at stage 3 with a stable GFR of 34, slightly improved from a previous GFR of 33. A colonoscopy performed last year revealed diverticulosis and internal he morrhoids, with a recommendation to repeat the procedure in 2028. [facility] Medical History CKD (chronic kidney disease) stage 3, GFR 30-59 ml/min Chronic kidney disease, stage 4 (severe) Murmur Vitamin D deficiency Secondary hyperparathyroidism Osteoarthritis of right shoulder Right shoulder pain Hearing loss Exposure to COVID-19 virus Anemia Obesity due to excess calories Tubular adenoma of colon Heart murmur Migraines Low vitamin B12 level Fatty liver GERD (gastroesophageal reflux disease) Type 2 diabetes mellitus with chronic kidney disease Hyperlipidemia LDL goal <100 Essential hypertension Surgical History Hx of colonoscopy History of eye surgery H/O excision of ganglion cyst History of tubal ligation History of laparoscopic cholecystectomy Family History Mother Diabetes Heart disease Hypertension Dementia Brother Diabetes Heart disease Sister Diabetes Father Substance use disorder Social History Household Members: None Housing: Apartment Are you a primary point of care specialist to a significant other at home: No Alcohol intake: never Patient Tobacco Use Status: Never used Tobacco e-Cigarette/Vaping Use: Never Used Second Hand Smoke Exposure: No service: No Current occupational status: unemployed and retired Current occupational exposures/hazards: No Cognitive needs: No Hearing needs: No Vision needs: Yes Questionnaire PHQ-9 Over the last 2 weeks, how often have you been bothered by any of the following problems? 1. Little interest or pleasure in doing things: not at all 2. Feeling down, depressed, or hopeless: not at all 3. Trouble falling or staying asleep, or sleeping too much: not at all 4. Feeling tired or having little energy: not at all 5. Poor appetite or overeating: not at all 6. Feeling bad about yourself - or that you are a failure or have let yourself or your family down: not at all 7. Trouble concentrating on things, such as reading the newspaper or watching television: not at all 8. Moving or speaking so slowly that other people could have noticed. Or the opposite - being so fidgety or restless that you have been moving around a lot more than usual: not at all 9. Thoughts that you would be better off or of hurting yourself in some way: not at all Total score: 0 Depression Screening Interpretation: Negative Depression Screening Done: Yes 17192 - PHQ-9 Billing: Yes Source: Developed by Drs. Rashard Grove, Olga Mittal, Wil Prince and colleagues, with an educational chel from [employer]. Thrive Questionnaire Date Thrive assessed: 12/09/24 I am a: Patient What is your living situation today?: I have a steady place to live Within the past 12 months, did the food you bought not last and you didn't have the money to get more?: I choose not to answer this question Within the past 12 months, did you worry whether your food would run out before you got money to buy more?: I choose not to answer this question Do you have trouble paying for medicines?: No Do you have trouble getting transportation to medical appointments?: No Do you have trouble paying your heating and electricity bill?: No Do you have trouble taking care of your child, family member or friend?: No Do you have trouble with day-to-day activities such as bathing, preparing meals, shopping, managing finances, etc.?: No Are you currently unemployed and looking for a job?: No Are you interested in more education?: No Please select the resources that you would like help with: None THRIVE Score: 0 AUDIT C Alcohol Use Questionnaire (AUDIT-C) 1. How often do you have a drink containing alcohol?: Never 3. How often do you have six or more drinks on one occasion?: Never Total Score: 0 Score Reviewed/Action Taken: No ANA MARIA-7 AMB Questionnaire ANA MARIA-7 Date ANA MARIA - 7 assessed: 06/15/24 Feeling nervous, anxious, or on edge: 0 = Not at all Not being able to stop or control worryin = Not at all Worrying too much about different things: 0 = Not at all Trouble relaxin = Not at all Being so restless that it is hard to sit still: 0 = Not at all Becoming easily annoyed or irritable: 0 = Not at all Feeling afraid as if something awful might happen: 0 = Not at all Total ANA MARIA-7 score (0-4 normal; 5-9 mild; 10-14 moderate; 15-21 severe): 0 Source: Developed by Drs. Rashard Grove, Olga Mittal, Wil Prince and colleagues, with an educational chel from [employer]. ANA MARIA-7 Assessment Billing ANA MARIA-7 Assessment Tool: ANA MARIA-7 Assessment 23624 Review of Systems Const All systems reviewed & are unremarkable except as noted in HPI and below Card Denies chest pain at rest, Denies chest pain with activity, Denies edema, Denies irregular heart rhythm, Denies claudication, Denies dyspnea, Denies dyspnea on exertion, Denies orthopnea, Denies paroxysmal nocturnal dyspnea and Denies slow heart rate Resp Denies cough, Denies dyspnea and Denies dyspnea on exertion Physical exam (Primary Care) Vital Signs: Last Vital Signs Temp 97.1 F 12/09/24 13:01 Pulse 67 12/09/24 13:01 BP 110/58 L 12/09/24 13:01 Pulse Ox 96 12/09/24 13:01 Oxygen Delivery Method Room Air 12/09/24 13:01 BMI result Body Mass Index 29.0 Tobacco/Smoking Status: Tobacco use Status Tobacco use date assessed 12/09/24 12/09/24 13:05 Patient Tobacco Use Status Never used Tobacco 12/09/24 13:05 Tobacco use type 06/11/24 11:06 e-Cigarette/Vaping Use Never Used 12/09/24 13:05 PHQ-9: PHQ-9 Score PHQ-9: Total score 0 12/09/24 13:18 Depression Screening Interpretation: Negative Thrive Assessment: Date of Thrive Assessment Date Thrive assessed 12/09/24 12/09/24 13:05 Const Orientation/consciousness: patient oriented x3 HENND Head: Yes normal to inspection, Yes normocephalic and Yes atraumatic Ears: external ears normal Eyes General: appearance normal, both eyes and all related structures Eyelids: Yes eyelids normal Conjunctivae: conjunctivae normal Neck Neck: Yes normal visual inspection and Yes supple Resp Effort & Inspection: normal respiratory effort Auscultation: clear to auscultation bilaterally Cardio Jugular venous distension: no JVD Rate: regular rate Rhythm: regular rhythm Heart sounds: S1 normal heart sound present and S2 normal heart sound present GI Inspection: Yes normal to inspection Palpation (GI): Soft to palpation and nontender Auscultation: normal bowel sounds Skin General skin exam: no rashes or lesions noted Neuro General: patient oriented x3 and no focal motor deficits Extrem General: Yes full ROM Psych Appearance: grossly normal Results AMB Hemoglobin A1c AMB Hemoglobin A1c 7.8 % Last Edit by Sol Amos CMA on 12/09/24 13:10 Immunizations pneumoc 20-sonja conj-dip cr(PF) 0.5 mL IM syringe Performing Provider: Larisa Mari MD [facility] Administered by: Sol Amos CMA on 12/09/24 13:33 Dose Route Admin Location Dispensed Lot Number Expiration Date [facility] Lacquer Polisher 0.5 mL IM Left Deltoid 0.5 mL [id number] 10/26/25 [id number] [employer] /[employer] Total Dispensed Waste 0.5 mL 0 % VIS Given Date VIS Provided VIS Publication Date 12/09/24 Single Vaccine 24 Eligibility Eligibility Date Funding Source Not [facility] Eligible 12/09/24 Private Results Reviewed Results Reviewed: Laboratory Last Values Hgb A1c (Clinic) 7.8 % (4.0-6.0) H 12/09/24 13:06 Coding Level of Care Code Est Pt Prev Care >65y(75186) Diagnoses Physical exam Z00.00 Stage 3b chronic kidney disease N18.32 Chronic kidney disease stage 3 subtype: stage 3b (GFR 30-44) Type 2 diabetes mellitus with stage 3b chronic kidney disease, with long-term current use of insulin E11.22; N18.32; Z79.4 Diabetes mellitus terminal operations supervisor insulin use: with terminal operations supervisor use Chronic kidney disease stage: stage 3 (moderate) Chronic kidney disease stage 3 subtype: stage 3b (GFR 30-44) Additional Codes PHQ-9 - 93143 - PHQ-9 Billing: Yes ([id number]) ANA MARIA-7 Assessment Billing - ANA MARIA-7 Assessment Tool: ANA MARIA-7 Assessment 35822 ([id number]) Time Spent (min) 30 Assessment & Plan Assessment & Plan (1) Physical exam: Code(s): Z00.00 - Encounter for general adult medical examination without abnormal findings Category: Medical (2) CKD (chronic kidney disease) stage 3, GFR 30-59 ml/min: Code(s): N18.30 - Chronic kidney disease, stage 3 unspecified Category: Medical Qualifiers: Chronic kidney disease stage 3 subtype: stage 3b (GFR 30-44) Qualified Code(s): N18.32 - Chronic kidney disease, stage 3b (3) Type 2 diabetes mellitus with chronic kidney disease: Code(s): E11.22 - Type 2 diabetes mellitus with diabetic chronic kidney disease Category: Medical Qualifiers: Diabetes mellitus shelter insulin use: with terminal operations supervisor use Chronic kidney disease stage: stage 3 (moderate) Chronic kidney disease stage 3 subtype: stage 3b (GFR 30-44) Qualified Code(s): E11.22 - Type 2 diabetes mellitus with diabetic chronic kidney disease; N18.32 - Chronic kidney disease, stage 3b; Z79.4 - long term care phlebotomist (current) use of insulin Plan Plan Patient was informed and verbally consented to the use of an ambient scribe for clinic note documentation during this visit. 1. Encounter for general adult medical examination without abnormal findings Z00.00 Preventative care measures include administering the pneumonia vaccine today, w ith plans to address the Tdap vaccine at a future visit. 2. Diabetes Mellitus The patient's diabetes mellitus is currently not at goal with an HbA1c of 7.8%. The plan includes adjusting her insulin dosage to better control her blood glucose levels. 3. Chronic Kidney Disease, Stage 3 The patient's chronic kidney disease is stable with a GFR of 34, and she continues to follow up with nephrology for management. Orders: Orders AMB Hemoglobin A1c Today Z13.9 - Encounter for screening, unspecified XR DEXA axial skeleton Today Z78.0 - Asymptomatic menopausal state Vitamin D 25-OH Total 4 Months E55.9 - Vitamin D deficiency, unspecified Complete Blood Count Auto Diff 4 Months D64.9 - Anemia, unspecified IRON PROFILE 4 Months D64.9 - Anemia, unspecified Lipid Panel 4 Months E78.5 - Hyperlipidemia, unspecified Microalbumin, Random (w Creat) 4 Months R80.9 - Proteinuria, unspecified Comprehensive [place]. Panel Fast 4 Months E11.22 - Type 2 diabetes mellitus with diabetic chronic kidney disease, N18.32 - Chronic kidney disease, stage 3b, Z79.4 - long term care phlebotomist (current) use of insulin Pneumococcal 20 Immunization Today Z23 - Encounter for immunization Medications: Changed From insulin degludec (Tresiba FlexTouch U-100 insulin) 45 units (0.45 mL) subcut BEDTIME 90 days 40.5 mL 1RF E11.22 - Type 2 diabetes mellitus with diabetic chronic kidney disease, N18.32 - Chronic kidney disease, stage 3b, Z79.4 - alf (current) use of insulin To insulin degludec (Tresiba FlexTouch U-100 insulin) 46 units (0.46 mL) subcut BEDTIME 41.4 mL 1RF 90 days E11.22 - Type 2 diabetes mellitus with diabetic chronic kidney disease, N18.32 - Chronic kidney disease, stage 3b, Z79.4 - alf (current) use of insulin
--- OUTSIDE RECORDS SUMMARY | 2024-12-09 16:14 | XMS_ITS | Patient Health Record ---
Author Organization [facility] Address [address] [place] [address] Care Team Providers Care Toy Designer Name Role Phone Larisa Barry Primary Care Provider Rashard Carnes [phone] Allergies Allergen (clinical drug ingredient) Drug/Non Drug Allergy documented on EMR Reaction Allergy Type Onset Date Status pioglitazone Pioglitazone Unknown Drug Allergy A ctive ibuprofen Ibuprofen Unknown Drug Allergy Active Pollen Pollen Unknown Allergy Active insulin aspart, human Insulin Aspart Unknown Drug Allergy Active atorvastatin Atorvastatin Unknown Drug Allergy A ctive Reason For Referral No Information Medications Medication SIG (Take, Route, Frequency, Duration) Notes Start Date End Date Status Ozempic (1 MG/DOSE) 4 MG/3ML as directed Subcutaneous Act [place] Tresiba 100 UNIT/ML as directed Subcutan eous 48 ml Active Aspirin 81 81 MG 1 tablet Orally Once a day; Duration: 30 day(s) Active Tresiba FlexTouch 100 UNIT/ML INJECT 40 UNITS UNDER THE SKIN AT BEDTIME Subcutaneous; Duration: 85 Activ e Omeprazole 20 MG TAKE 1 CAPSULE BY [facility] DAILY Oral; Duration: 90 Active Vitamin D3 50 MCG (1999) TAKE 50MCG BY MOUTH FOR 90 DAYS Oral; Duration: 90 Active Lisinopril 2.5 MG 1 tablet Orally Once a day; Duration: 30 day(s) Active Metoprolol Succinate ER 25 MG 1 tablet Orally Once a day; Duration: 30 day(s) Active Loratadine 10 MG 1 tablet Orally Once a day; Duration: 30 day(s) Active Rosuvastatin Calcium 40 MG 1 tablet Oral ly Once a day; Duration: 30 day(s) Active Social History Tobacco Use: [...] Problem Status W/U Status Risk Notes Problem Colon cancer screening (408239075) Colon cancer screening (Z12.11) Active confirmed Problem History of adenomatous polyp of colon (023932517) History of adenomatous polyp of colon (Z86.010) Active confirmed Problem History of polyp of colon (situation) (088194133) Personal history of colonic polyps (Z86.010) Active confirmed Problem Pre-procedure evaluation check ([id number]) Encounter for other preprocedural examination (Z01.818) Active confirmed Plan Of Treatment No Information Insurance Providers Payer Name Payer Address Payer Phone Subscriber Number Group Number Insured Name Patient Relationship to Insured Coverage Start Date Coverage End Date [facility] [address] [place], [place] [id number] SHEILA RYAN Self - patient is the insured Medical (General) History Medical History History ICD Code CRF DM Denies OK,CVA,Lung disease Hyperlipidemia Migraines Colon polyp on an initial il reening colonoscopy, but her last colonosocpy in [address] Hightower was reportedly negative GERD-describes negative EGD in the past Chronic anemia with normal i luís studies in March of 2023 and hemoglobin of 10.3 with a normal MCV Surgical History Surgery Date(Month/Year) Cholecystectomy Glaucoma surgery BTL
== END 2024-12-09 13:38 | disposition home or self-care (01) ==
LOC: HO.HMCH 12:52
PROVIDERS: PCP Internal Medicine; Visit Provider Internal Medicine
DX: Z00.00 Encounter for general adult medical examination without abnormal findings (principal); E11.22 Type 2 diabetes mellitus with diabetic chronic kidney disease; N18.32 Chronic kidney disease, stage 3b; Z79.4 Long term (current) use of insulin; Z23 Encounter for immunization; Z13.9 Encounter for screening, unspecified

== ENCOUNTER → 2024-12-09 12:52 | Outpatient (BNVA) | payer MEDICARE, SELFPAY | PROVIDERS: PCP Internal Medicine; Visit Provider Internal Medicine | DX: Z00.00 Encounter for general adult medical examination without abnormal findings (principal); E11.22 Type 2 diabetes mellitus with diabetic chronic kidney disease; N18.32 Chronic kidney disease, stage 3b; D63.1 Anemia in chronic kidney disease; K57.90 Diverticulosis of intestine, part unspecified, without perforation or abscess without bleeding; K64.9 Unspecified hemorrhoids; E55.9 Vitamin D deficiency, unspecified; R80.9 Proteinuria, unspecified; Z23 Encounter for immunization; Z78.0 Asymptomatic menopausal state | CPT/HCPCS: 83036; 90471; 90677; 96127; 99397 ==

== ENCOUNTER 2025-02-04 07:39 | Outpatient (REF) | payer MEDICARE, SELFPAY ==
[2025-02-04 09:25] LABS: Anion Gap 9 (12-20); Blood Urea Nitrogen 20 mg/dL (9-16); Calcium 9.1 mg/dL (8.4-10.2); Carbon Dioxide 27 mmol/L (22-29); Chloride 110 mmol/L (96-108); Estimated Glomerular Filt Rate 30; Potassium 4.6 mmol/L (3.3-5.1); Sodium 141 mmol/L (135-145)
== END 2025-02-04 07:40 ==
LOC: HO.LAB 07:39
PROVIDERS: PCP Internal Medicine; Visit Provider Internal Medicine Hypertension Specialist
DX: N18.32 Chronic kidney disease, stage 3b (principal)
CPT/HCPCS: 36415; 80048

== ENCOUNTER 2025-02-08 13:38 | Outpatient (AMB) | payer MEDICARE, SELFPAY ==
--- NOTE | 2025-02-08 13:41 | HO.NEPHOV ---
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 Accompanied by: Self / Same As Patient Allergies atorvastatin Allergy (Intermediate, Verified 02/08/25 13:43) myalgias ibuprofen Allergy (Intermediate, Verified 02/08/25 13:43) contraindicated due to kidneys insulin aspart Allergy (Intermediate, Verified 02/08/25 13:43) swelling in legs pioglitazone Allergy (Intermediate, Verified 02/08/25 13:43) face swelling pollen extracts (POLLEN) Allergy (Intermediate, Verified 02/08/25 13:43) ITCHY,SNEEZING, RUNNY NOSE Medication List - Last Reconciled 02/08/25 by Jorge Bradley MD aspirin (Adult Aspirin Regimen) 81 mg PO DAILY blood sugar diagnostic (OneTouch Ultra Test strips) As directed four times a day blood-glucose meter (Accu-Chek Guide Glucose Meter) As directed blood-glucose meter (Real Time TomographyTouch Ultra2 Meter) As directed cholecalciferol (vitamin D3) 50 mcg PO DAILY 90 days flash glucose scanning reader (FreeStyle Jackson 2 [place]) As directed flash glucose sensor (FreeStyle Jackson 2 Sensor kit) As directed every 2 weeks insulin degludec (Tresiba FlexTouch U-100 insulin) 46 units (0.46 mL) subcut BEDTIME 90 days lancets As directed lisinopril 2.5 mg PO DAILY 90 days loratadine 10 mg PO DAILY 90 days metoprolol succinate ER 25 mg PO DAILY omeprazole 20 mg PO DAILY 90 days pen needle, diabetic Use 1 needle8 four times a day rosuvastatin 40 mg PO DAILY 90 days semaglutide (Ozempic) 2 mg (0.75 mL) subcut QWEEK 4 weeks HPI Comments Details: History of Present Illness The patient is a 74 year old female presenting for a follow-up visit for her diabetes and chronic kidney disease. She has a history of chronic kidney disease with a stable baseline creatinine of 1.5, which is better than it was last year. For her diabetes, she takes Ozempic, which has led to weight loss. Her weight has decreased to 152 lbs from a previous high of 178 lbs. Her blood sugar is reported as good, although she had a reading of 92 mg/dL before her appointment and avoids her injection when readings are low. She is on lisinopril and was taking metoprolol 25 mg for blood pressure. Due to low blood pressure, she has been cutting the metoprolol tablet in half. She denies experiencing any lightheadedness upon standing or walking. The patient also takes vitamin D. Results - Labs: Creatinine is stable at 1.5. - Home Monitoring: Blood glucose was 92 mg/dL. [facility] Medical History CKD (chronic kidney disease) stage 3, GFR 30-59 ml/min Chronic kidney disease, stage 4 (severe) Murmur Vitamin D deficiency Secondary hyperparathyroidism Osteoarthritis of right shoulder Right shoulder pain Hearing loss Exposure to COVID-19 virus Anemia Obesity due to excess calories Tubular adenoma of colon Heart murmur Migraines Low vitamin B12 level Fatty liver GERD (gastroesophageal reflux disease) Type 2 diabetes mellitus with chronic kidney disease Hyperlipidemia LDL goal <100 Essential hypertension Surgical History Hx of colonoscopy History of eye surgery H/O excision of ganglion cyst History of tubal ligation History of laparoscopic cholecystectomy Family History Mother Diabetes Heart disease Hypertension Dementia Brother Diabetes Heart disease Sister Diabetes Father Substance use disorder Social History Household Members: None Housing: Apartment Are you a primary interior plant caretaker to a significant other at home: No Alcohol intake: never Patient Tobacco Use Status: Never used Tobacco e-Cigarette/Vaping Use: Never Used Second Hand Smoke Exposure: No service: No Current occupational status: unemployed and retired Current occupational exposures/hazards: No Cognitive needs: No Hearing needs: No Vision needs: Yes Physical Exam Exam Exam: Physical Exam General: Awake. Comfortable. HENT: Neck supple. Mucosa moist. Pulmonary: Lungs aeration equal. No rales. Cardiology: Heart S1-S2 heard. No gallop. Abdomen: Soft. Non tender. Bowel sounds normal. Neurologic: No involuntary movements. No myoclonus. Extremities: No edema. No rash. Vital Signs: Last Vital Signs BP 104/50 L 12/15/25 13:42 BMI result Body Mass Index 28.7 Results Reviewed Nephrology Results: Hgb, (12.0-16.0) 9.6 g/dl L 12/04/24 WBC, (4.8-10.8) 6.2 X10*3/uL 12/04/24 Plt Count, (160-400) 236 X10*3/uL 12/04/24 Sodium, (135-145) 141 mmol/L 02/04/25 Potassium, (3.3-5.1) 4.6 mmol/L 02/04/25 Chloride, (96-108) 110 mmol/L H 02/04/25 Carbon Dioxide, (22-29) 27 mmol/L 02/04/25 BUN, (9-16) 20 mg/dL H 02/04/25 Creatinine, (0.5-1.4) 1.66 mg/dL H 02/04/25 Calcium, (8.4-10.2) 9.1 mg/dL 02/04/25 Urine Creatinine 183.56 mg/dL 12/04/24 Assessment & Plan Assessment & Plan (1) Physical exam: Code(s): Z00.00 - Encounter for general adult medical examination without abnormal findings Category: Medical (2) CKD (chronic kidney disease) stage 3, GFR 30-59 ml/min: Code(s): N18.30 - Chronic kidney disease, stage 3 unspecified Category: Medical Qualifiers: Chronic kidney disease stage 3 subtype: stage 3b (GFR 30-44) Qualified Code(s): N18.32 - Chronic kidney disease, stage 3b (3) Type 2 diabetes mellitus with chronic kidney disease: Code(s): E11.22 - Type 2 diabetes mellitus with diabetic chronic kidney disease Category: Medical Qualifiers: Diabetes mellitus long term care phlebotomist insulin use: with long term care phlebotomist use Chronic kidney disease stage: stage 3 (moderate) Chronic kidney disease stage 3 subtype: stage 3b (GFR 30-44) Qualified Code(s): E11.22 - Type 2 diabetes mellitus with diabetic chronic kidney disease; N18.32 - Chronic kidney disease, stage 3b; Z79.4 - senior living (current) use of insulin Plan Plan 1. Chronic Kidney Disease Due to underlying hypertensive diabetic disease - The patient's kidney function is stable, with a creatinine of 1.5. - The plan is to continue monitoring. She was advised to drink plenty of water and maintain a low-salt diet. - A follow-up visit is scheduled in 6 months. 2. Diabetes Mellitus - The patient's blood sugar is generally well-controlled, though she has experienced episodes of hypoglycemia. - She continues on Ozempic, which has aided in her weight loss. - No changes were made to her diabetes management. She will continue to self-manage by not taking her injection when her sugar is low. 3. Hypertension - The patient is experiencing low blood pressure, likely secondary to significant weight loss. - She was instructed to discontinue metoprolol - currently on 12.5 mg ( She has been breaking Metoprolol ER 25 mg TABS) . - She will continue taking lisinopril 2.5 mg - She will follow up in 6 months for re-evaluation. Orders: Orders Basic Metabolic Panel 6 Months E11.22 - Type 2 diabetes mellitus with diabetic chronic kidney disease, N18.32 - Chronic kidney disease, stage 3b, Z79.4 - senior living (current) use of insulin Creatinine Urine 6 Months E11.22 - Type 2 diabetes mellitus with diabetic chronic kidney disease, N18.32 - Chronic kidney disease, stage 3b, Z79.4 - terminal worker (current) use of insulin UA and rflx microscopic 6 Months E11.22 - Type 2 diabetes mellitus with diabetic chronic kidney disease, N18.32 - Chronic kidney disease, stage 3b, Z79.4 - terminal worker (current) use of insulin Total Protein Urine Random 6 Months E11.22 - Type 2 diabetes mellitus with diabetic chronic kidney disease, N18.32 - Chronic kidney disease, stage 3b, Z79.4 - terminal worker (current) use of insulin Medications: Discontinued metoprolol succinate ER Discontinued Reason: Doctor's Order 25 mg PO DAILY 90 tabs 0RF Coding Level of Care Code Est Pt Level 4 (75642) Diagnoses Physical exam Z00.00 Stage 3b chronic kidney disease N18.32 Chronic kidney disease stage 3 subtype: stage 3b (GFR 30-44) Type 2 diabetes mellitus with stage 3b chronic kidney disease, with long-term current use of insulin E11.22; N18.32; Z79.4 Diabetes mellitus long term care phlebotomist insulin use: with long term care phlebotomist use Chronic kidney disease stage: stage 3 (moderate) Chronic kidney disease stage 3 subtype: stage 3b (GFR 30-44)
[2025-02-08 13:42] VITALS: BP 104/50; BMI 28.7
--- OUTSIDE RECORDS SUMMARY | 2025-02-08 19:55 | XMS_ITS | Patient Health Record ---
Author Organization [facility] Address [address] [place] [address] Care Team Providers Care Salesforce Administrator Name Role Phone Larisa Barry Primary Care Provider Rashard Carnes [phone] Allergies Allergen (clinical drug ingredient) Drug/Non Drug Allergy documented on EMR Reaction Allergy Type Onset Date Status atorvastatin Atorvastatin Unknown Drug Allergy A ctive insulin aspart, human Insulin Aspart Unknown Drug Allergy Active Pollen Pollen Unknown Allergy Active ibuprofen Ibuprofen Unknown Drug Allergy Active pioglitazone Pioglitazone Unknown Drug Allergy A ctive Reason For Referral No Information Medications Medication SIG (Take, Route, Frequency, Duration) Notes Start Date End Date Status Ozempic (1 MG/DOSE) 4 MG/3ML Solution Pen-injector as directed Subcutaneous Act [place] Tresiba 100 UNIT/ML Solution as directed Subcutaneous 48 ml Active Aspirin 81 81 MG Tablet Delayed Release 1 tablet Orally Once a day; Duration: 30 day(s) Active Tresiba FlexTouch 100 UNIT/ML Solution Pen-injector INJECT 40 UNITS UNDER THE SKIN AT BEDTIME Subcutaneous; Duration: 85 Activ e Omeprazole 20 MG Capsule Delayed Release TAKE 1 CAPSULE BY MOUTH DAILY Oral; Duration: 90 Active Vitamin D3 50 MCG (1999) Capsule TAKE 50MCG BY MOUTH FOR 90 DAYS Oral; Duration: 90 Active Lisinopril 2.5 MG Tablet 1 tablet Orally Once a day; Duration: 30 day(s) Active Metoprolol Succinate ER 25 MG Tablet Extended Release 24 Hour 1 tablet Orally Once a day; Duration: 30 day(s) Active Loratadine 10 MG Tablet 1 tablet Orally Once a day; Duration: 30 day(s) Active Rosuvastatin Calcium 40 MG Tablet 1 tablet Orally Once a day; Duration: 30 day(s) Active Social History Tobacco Use: Social History Observation Description Date Details (start date - stop date) Never Smoker NA - NA Social History Drugs/Alcohol: Social Info Question Answer Notes Alcohol Screen Did you have a drink containing alcohol in the past year? 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 [employer] Notes: Nonsmoker; no sig alcohol Problems Problem Type SNOMED Code ICD Code Onset Dates Problem Status W/U Status Risk Notes Problem Colon cancer screening (509514572) Colon cancer screening (Z12.11) Active confirmed Problem History of adenomatous polyp of colon (844710184) History of adenomatous polyp of colon (Z86.010) Active confirmed Problem History of polyp of colon (situation) (834605380) Personal history of colonic polyps (Z86.010) Active confirmed Problem Pre-procedure evaluation check (695737456) Encounter for other preprocedural examination (Z01.818) Active confirmed Plan Of Treatment No Information Insurance Providers Payer Name Payer Address Payer Phone Subscriber Number Group Number Insured Name Patient Relationship to Insured Coverage Start Date Coverage End Date [facility] [address] [place], [place] [id number] SHEILA RYAN Self - patient is the insured Medical (General) History Medical History History ICD Code CRF DM Denies [place],CVA,Lung disease Hyperlipidemia Migraines Colon polyp on an initial al reening colonoscopy, but her last colonosocpy in [address] Hightower was reportedly negative GERD-describes negative EGD in the past Chronic anemia with normal i luís studies in March of 2023 and hemoglobin of 10.3 with a normal MCV Surgical History Surgery Date(Month/Year) Cholecystectomy Glaucoma surgery BTL
== END 2025-02-08 13:51 | disposition home or self-care (01) ==
LOC: HO.HKA 13:39
PROVIDERS: PCP Internal Medicine; Visit Provider Internal Medicine Hypertension Specialist
DX: Z00.00 Encounter for general adult medical examination without abnormal findings (principal); N18.32 Chronic kidney disease, stage 3b; E11.22 Type 2 diabetes mellitus with diabetic chronic kidney disease; Z79.4 Long term (current) use of insulin
CPT/HCPCS: 99214

== ENCOUNTER → 2025-02-08 13:38 | Outpatient (BNVA) | payer MEDICARE, SELFPAY | PROVIDERS: PCP Internal Medicine; Visit Provider Internal Medicine Hypertension Specialist | DX: Z00.00 Encounter for general adult medical examination without abnormal findings (principal); I12.9 Hypertensive chronic kidney disease with stage 1 through stage 4 chronic kidney disease, or unspecified chronic kidney disease; E11.22 Type 2 diabetes mellitus with diabetic chronic kidney disease; N18.32 Chronic kidney disease, stage 3b; Z79.4 Long term (current) use of insulin; Z79.899 Other long term (current) drug therapy; Z79.85 Long-term (current) use of injectable non-insulin antidiabetic drugs | CPT/HCPCS: 99212 ==